=== PATIENT | male | born 1965 | race Caucasian/White ===

== ENCOUNTER 2019-08-28 17:33 | Inpatient (IN) | payer BC, MEDICAID, SELFPAY ==
--- NOTE | ~2019-08-28 | XR_ITS ---
EXAMINATION: XR chest 1V portable EXAM DATE: 08/28/2019 18:08 INDICATION: Chest pain radiating down left arm. Shortness of breath. TECHNIQUE: Portable AP frontal chest x-ray was obtained. Comparison is made to prior examination from 09/25/2015. FINDINGS: The lungs are clear. There are no pleural effusions. Cardiac silhouette is prominent but magnified on this AP technique. There is no pneumothorax suspected. The bones and soft tissues are unremarkable. IMPRESSION: No acute cardiopulmonary findings. Reviewed, dictated and finalized at location A.
--- NOTE | ~2019-08-28 | CT_ITS ---
EXAMINATION: CT chest abdomen pelvis w con EXAM DATE: 08/28/2019 19:13 INDICATION: Anterior chest and epigastric abdominal pain. Low blood pressure. TECHNIQUE: Spiral CT of the chest, abdomen and pelvis was performed following intravenous injection o f 100 mL Omnipaque 350. Axial, coronal and sagittal images were reviewed. Coronal maximum intensity pixel images of chest reviewed. The dose-length product (DLP) for this examination was 1362.71 mGy- cm. The exposure was tailored according to patient size (auto mA exposure control), and iterative re construction (ASIR) was used as additional dose reduction technique. There is no prior study for com sophiaon. FINDINGS: CHEST: There is disc shaped right upper lobe opacity measuring 9 x 6 x 4 mm, most likely postinfecti ous. 6 month follow-up low-dose chest CT is indicated. There is a 4 mm left lower lobe nodule on imag e 73. Dependent subsegmental atelectasis. There are no pleural or pericardial effusions. Tracheobr onchial tree is patent. There is no mediastinal, hilar or axillary lymphadenopathy. There is no p neumothorax. Heart normal in size. There is mild coronary arterial calcification, arterial sclero sis. ABDOMEN PELVIS: There is hepatic steatosis without suspicious focal lesion identified. Spleen, adrena l glands, pancreas are unremarkable. Gallbladder is unremarkable. No biliary obstruction. Portal a nd splenic veins are patent. Kidneys enhance symmetrically. There is no hydronephrosis. There is a 4 mm left mid calyceal stone. Homogeneous low-density right renal lesion measuring 1.5 cm, and other similar appearing lesion in the lower pole of this kidney measuring 2.0 cm is, likely hemorrhagic cys ts. The prostate is unremarkable. The bladder is unremarkable. There is no retroperitoneal or pelv ic lymphadenopathy. The appendix is normal. The stomach and small bowel are unremarkable. There is expected amount of c olonic stool. No free intraperitoneal gas. There are no osteoblastic or osteolytic lesions identi fied. IMPRESSION: 1. No acute chest, abdomen or pelvis findings. 2. 2. Pulmonary nodules likely postinfectious; 6 month follow-up low-dose chest CT about contrast. 3. Hepatic steatosis. 4. Left nephrolithiasis. Reviewed, dictated and finalized at location A. IMPRESSION: 1. No acute chest, abdomen or pelvis findings. 2. 2. Pulmonary nodules likely postinfectious; 6 month follow-up low-dose ches t CT about contrast. 3. Hepatic steatosis. 4. Left nephrolithiasis.
--- NOTE | 2019-08-28 17:39 | ECG_ITS ---
Measurements Intervals [place] Rate: 67 P: 51 FL: 153 QRS: 22 QRSD: 91 T: 64 QT: 416 QTc: 440 Interpretive Statements SINUS RHYTHM BORDERLINE ST-T WAVE ABNORMALITY- LATERAL LEADS BASELINE ARTIFACT- I, II, III, AVR, AVL, AVF BORDERLINE ECG Electronically Signed On 08-28-2019 20:42:52 CDT by Constantino Molina D.O.
[2019-08-28 17:43] VITALS: BP 97/71; PULSE 64; RESP 20; TEMP 36.6; O2SAT 96
[2019-08-28 17:46] VITALS: PULSE 63
--- NOTE | 2019-08-28 17:48 | ED.CHESTPAIN ---
HPI - Chest Pain General Chief Complaint: Chest Pain Stated Complaint: Chest pain Time Seen by Provider: 08/28/19 17:41 Source: patient Mode of arrival: ambulatory Limitations: no limitations History of Present Illness HPI narrative: A 54 y/o male presents to the ED with c/o CP. Pt states that this morning he woke up feeling abnormal and went to [employer]. He notes that when he came home from [employer], he vomited once. After he vomited he then started to have chest pressure and pain that radiated to his left arm. Pt adds that the CP is less severe in the ED. He reports nausea, left finger tingling, trouble walking, and SOB, but denies numbness. Pt is a nonsmoker. He has a PMHx of HTN and hyperlipidemia and takes Amlodipine and Lisinopril daily. Pt is unsure if he threw up his medication today. complaint: chest pain Onset (ago): hour(s) (This morning) Timing of current episode: still present (Better) Pain radiation: left arm Quality: other (Pressure) Associated symptoms: nausea, vomiting, dyspnea and other (Left finger tingling, trouble walking) Related Data Home Medications Medication Instructions Recorded Confirmed amlodipine 08/28/19 atorvastatin 08/28/19 lisinopril 08/28/19 Allergies Allergy/AdvReac Type Severity Reaction Status Date / Time No Known Allergies Allergy Verified 08/28/19 17:41 Review of Systems Review of Systems: Narrative: CONSTITUTIONAL: Denies fever, chills, or sweats. EYES: Denies visual changes, redness, or discharge. ENT: Denies rhinorrhea, congestion, sore throat, or otalgia. CARDIOVASCULAR: Denies palpitations or edema. Reports chest pain that radiates to left arm. RESPIRATORY: Denies cough. Reports dyspnea. GASTROINTESTINAL: Denies abdominal pain or diarrhea. Reports nausea and vomiting. GENITOURINARY: Denies dysuria or hematuria. SKIN: Denies rash or itching. MUSCULOSKELETAL: Denies back pain, joint pain, or myalgia. NEUROLOGIC: Denies headache, numbness, or weakness. Reports trouble walking and left finger tingling. All systems reviewed & are unremarkable except as noted in HPI and below PMFSH Past Medical History Medical History (Updated 08/28/19 @ 19:54 by Abimbola Evangelista MD) Anxiety Depression HTN (hypertension) Hyperlipidemia Surgical History Surgical History (Updated 08/28/19 @ 18:17 by Chelly Peterson) History of back surgery Social History Social History (Updated 08/28/19 @ 18:18 by Chelly Peterson) Smoking status: Former smoker Tobacco type: cigarettes Smoking end date: 08/21/15 Exam Narrative: Exam Narrative: GENERAL: Awake, alert, slightly diaphoretic, conversant HEAD: Normocephalic, atraumatic. EYES: PERRLA and EOMI. ENT: Nares clear, no rhinorrhea or epistaxis. Mucous membranes moist. NECK: Supple. CHEST: Clear to auscultation. No respiratory distress. No chest wall tenderness. HEART: Regular rate and rhythm. No murmur heard. Normal peripheral pulses. ABDOMEN: Soft, nontender, nondistended, normal active bowel sounds. EXTREMITIES: Normal range of motion. No edema. SKIN: Warm, diaphoretic, no rash. NEURO: No focal deficits. Alert and oriented X3. Course Course Emergency Course: Patient presented to the emergency department for evaluation of chest pain, nausea, vomiting. At the time of initial assessment, airway is intact, patient is hypertensive, no tachycardia, patient is afebrile. Given hypotension and recent history of chest pain, was concern for possible aortic etiology versus dehydration given the patient has been nauseous and vomiting. Patient initially denied any medical problems to me after being questions several times in the room. IV access obtained, patient was given a 30 mL/kg fluid bolus, blood cultures were obtained. He had appropriate response to fluids, with improvement of his blood pressure. Patient has laboratory results that are notable for leukocytosis, lactic acidosis, metabolic acidosis with decreased bicarb and anion gap of 18 co
[2019-08-28 17:55] LABS: Basophils Absolute Auto 0.1 K/mm3 (0.0-0.1); Basophils Percent Auto 0.3 % (0.2-1.2); Eosinophils Absolute Auto 0.1 K/mm3 (0-0.3); Eosinophils Percent Auto 0.4 % (0-4.4); Hematocrit 47.7 % (42.0-52.0); Hemoglobin 15.9 g/dL (14.0-18.0); Immature Granulocyte Absolute 0.06 K/mm3 (0.00-0.031); Immature Granulocyte Percent A 0.4 % (0-0.5); Lymphocytes Absolute Auto 4.89 K/mm3 (0.9-3.2); Lymphocytes Percent Auto 29.2 % (18.3-44.2); Mean Corpuscular HGB Conc 33.3 g/dl (32-36); Mean Corpuscular Hemoglobin 29.4 pg (26-34); Mean Corpuscular Volume 88.2 fl (80-100); Mean Platelet Volume 11.9 fl (7.4-10.4); Monocytes Absolute Auto 0.9 K/mm3 (0.1-0.6); Monocytes Percent Auto 5.5 % (2.6-8.5); Neutrophils Absolute Auto 10.8 K/mm3 (1.3-6.7); Neutrophils Percent Auto 64.2 % (45.5-73.1); Platelet Count Result 258 k/mm3 (150-375); Red Blood Count 5.41 M/mm3 (4.6-6.20); White Blood Count 16.8 K/mm3 (4.5-10.0)
--- NOTE | 2019-08-28 17:55 | ECG_ITS ---
Measurements Intervals [place] Rate: 58 P: 62 MO: 129 QRS: 27 QRSD: 95 T: 55 QT: 431 QTc: 424 Interpretive Statements SINUS BRADYCARDIA BORDERLINE ST-T WAVE ABNORMALITY- LATERAL LEADS BASELINE ARTIFACT- I, II, III, AVR, AVF BORDERLINE ECG Electronically Signed On 08-28-2019 20:43:34 CDT by Constantino Molina D.O.
[2019-08-28 18:00] LABS: Glucose Point of Care > 500 (65-105)
[2019-08-28 18:06] LABS: INR 0.9; Prothrombin Time 12.3 Seconds (11.1-14.7)
[2019-08-28 18:07] LABS: Partial Thromboplastin Time 23.7 SECONDS (22.3-36.8)
[2019-08-28] MEDS: SODIUM CHLORIDE 0.9% IV 2,800 ML/1,000 ML BAG 999 ML IV CONT (18:07)
[2019-08-28 18:08] LABS: Blood Urea Nitrogen 15 mg/dL (9-20); Calcium 10.4 mg/dL (8.4-10.2); Carbon Dioxide 18 mmol/L (22-30); Chloride 94 mmol/L (98-107); Estimated CRCL calculation 57 ml/min; Estimated Glomerular Filt Rate 49; Potassium 4.1 mmol/L (3.4-5.0); Sodium 130 mmol/L (137-145)
[2019-08-28] MEDS: ASPIRIN 81 MG CHEWABLE TABLET 324 MG PO (18:10)
[2019-08-28 18:16] LABS: Glucose 619 mg/dL (75-110)
[2019-08-28 18:18] LABS: Troponin I 0.013 ng/mL (0.000-0.034)
[2019-08-28 18:30] LABS: Alveolar/Arterial O2 Gradient 31.4 mmHg; Base Excess ABG -8.2 mEq/l (+/-2.0); Carboxyhemoglobin 3.2 % THb (0-2.0); Fractional Inspired Oxygen 21 %; HCO3 ABG 17.5 mEq/l (22.0-26.0); Methemoglobin ABG 0.2 %THb (0-1.5); Oxygen Saturation ABG 93.6 % (95.0-100.0); Oxyhemoglobin 90.7 % THb (90.0-100.0); PCO2 ABG 36.8 mmHg (35.0-45.0); PO2 ABG 74.3 mmHg (80.0-100.0); PO2 FiO2 Ratio Arterial Blood 3.54 %; Reduced Hemoglobin 5.9 %THb (0-5.0); Total Hemoglobin 14.1 g/dL (12.0-18.0); pH ABG 7.295 (7.350-7.450)
[2019-08-28 18:31] LABS: Device ROOM AIR; Site Drawn LEFT BRACHIAL
[2019-08-28 18:31] LABS: Alanine Aminotransferase 116 U/L (4-50); Albumin Level 4.4 g/dL (3.5-5.1); Alkaline Phosphatase 160 U/L (38-126); Aspartate Amino Transferase 75 U/L (17-59); Bilirubin,Total 0.8 mg/dL (0.2-1.3); CRP 1.6 mg/dL (<1.0); Lipase 108 U/L (23-300); Magnesium 2.2 mg/dL (1.6-2.3); Phosphorus 5.4 mg/dL (2.5-4.5)
[2019-08-28 18:39] LABS: Lactic Acid Reflex 4.2 mmol/L (0.7-2.1)
--- NOTE | 2019-08-28 20:00 | PM.IMHP ---
H&P: HPI History of Present Illness Chief complaint: Chest pressure. Narrative: Fred Lozada is a 54-year-old male with history of hypertension, hyperlipidemia, depression, and anxiety who presented to the emergency department earlier this evening via private vehicle from home for evaluation of chest pressure. He is only a fair historian, and several times throughout the interview he contradicted what he had previously said, and thus I am not certain how reliable the following history is. Reportedly, he stopped taking all of his medications (antihypertensive, antidepressant, benzodiazepine, and perhaps a statin) approximately 1 month ago due to what sounds like being lost to follow-up, and his physician would not renew them. Since that time he has just not been feeling well, with increasing fatigue and generalized weakness. This morning he got up to go to denominational and tells me he had to drag myself there due to feeling so poorly. He had 1 can of soda before going to denominational, and evidently he decided to take his medications (unclear if these were the ones that he had stopped taking last month, but he had previously told me he had run out of those) but he began vomiting thereafter. After denominational he went to his [id number]'s house, and while there he developed diffuse diaphoresis, midsternal chest pressure, and some discomfort in his left upper arm. He was worried about a possible heart attack and thus he came in for evaluation. He was borderline hypotensive in the emergency department and was found to have an acute kidney injury with profound metabolic acidosis as well as hyperglycemia, indicative of new onset diabetes. With further questioning, he has noted blurry vision and in fact saw the eye doctor not long ago and is awaiting prescription lenses. He also notes polydipsia and polyuria. He believes he may have lost some weight as his pants feel a little bit loose. He gets occasional GERD for which she will take Tums, but denies any current issues with that. He has not had recent cold or flu symptoms. He denies fever, chills, and sweats. No shortness of breath, cough, rhinorrhea, otalgia, or odynophagia. He denies diarrhea and dysuria. No paresthesias. Denies nonhealing wounds. Review of Systems Review of Systems: Narrative: 12 systems were reviewed with pertinent positives and negatives as per HPI. Except as documented, all other systems were reviewed and are negative. [facility] Past Medical History Medical History (Updated 08/28/19 @ 20:28 by Alison Painting PA-C) Anxiety Depression Hyperlipidemia Hypertension Surgical History Surgical History History of back surgery Family History Family History (Updated 08/28/19 @ 20:21 by Alison Painting PA-C) Father Malignant neoplasm of prostate Mother Acute myocardial infarction Diabetes mellitus Sibling Acute myocardial infarction Diabetes mellitus Social History Social History (Updated 08/28/19 @ 20:26 by Alison Painting PA-C) Social History: The patient is and lives with his in [place]. He designates his Farida is a surrogate decision-maker and he wishes to be a full code. 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 He is a former smoker, unable to qualify, and says he quit smoking several years back however his carboxyhemoglobin is elevated on ABG today. He drinks alcohol rarely, maybe several times a year. He denies illicit drug use. Smoking status: Former smoker Tobacco type: cigarettes Smoking end date: 08/21/15 Meds Home Medications and Allergies Home Medications Medication Instructions Recorded Confirmed Type amlodipine 08/28/19 History atorvastatin 08/28/19 History lisinopril 08/28/19 History Allergies Allergy/AdvReac Type Severity Reaction Status Date / Time No Known Allergies Allergy Verified 08/28/19 17:41 Vital Signs Vital Signs - 24
[2019-08-28] MEDS: INSULIN HUMAN REGULAR (*BKC) 100 UNITS/ML 9 UNITS IV PUSH (20:24)
[2019-08-28 21:12] VITALS: BP 141/100; PULSE 78; RESP 18; O2SAT 98
[2019-08-28 21:23] LABS: Hepatitis B Surface Antigen Negative (Negative)
[2019-08-28 21:24] LABS: Reflex Lactic Acid Yes or No Add Lactic
[2019-08-28 21:29] LABS: HAV RESULT Negative (Negative); Hepatitis B Core IgM Result Negative (Negative)
[2019-08-28 21:32] LABS: Glucose Point of Care 446 (65-105)
[2019-08-28 21:34] LABS: Add Urine Microscopic? YES; Appearance Urine Clear (Clear); Bilirubin Urine Negative (Negative); Blood Urine 1+ (Negative); Color Urine Straw (Yellow); Glucose Urine UA 3+ mg/dL (Negative); Ketones Urine Trace mg/dL (Negative); Leukocyte Esterase Ur Negative LEU/UL (Negative); Nitrate Urine Negative (Negative); Protein Urine 1+ mg/dL (Negative); Urobilinogen Urine Negative mg/dL (<2.0)
[2019-08-28 21:35] LABS: Specific Grav Ur 1.032 (1.001-1.035)
[2019-08-28] MEDS: INSULIN HUMAN REGULAR (*BKC) 100 UNITS in SODIUM CHLORIDE 0.9% IV 99 ML 11.2 UNITS IV CONT (21:35)
[2019-08-28 21:41] LABS: Hepatitis C Virus Antibody Negative (Negative)
[2019-08-28] MEDS: ONDANSETRON INJ 4 MG/2 ML VIAL IV PUSH (21:42)
[2019-08-28 21:45] VITALS: BP 148/80; PULSE 69; RESP 21; O2SAT 96
[2019-08-28 21:46] LABS: Amphetamine Screen Urine Negative (Negative); Barbiturate Screen Urine Negative (Negative); Benzodiazepines Screen Urine Negative (Negative); Cannabinoid Screen Urine Positive (Negative); Cocaine Screen Urine Negative (Negative); Methadone Screen Urine Negative (Negative); Opiate Screen Urine Negative (Negative); Phencyclidine Screen Urine Negative (Negative)
[2019-08-28 22:00] VITALS: PULSE 65; BMI 27.2
[2019-08-28] MEDS: SODIUM CHLORIDE 0.9% IV 1,000 ML 150 ML IV CONT (22:05)
[2019-08-28 22:21] LABS: Hemoglobin A1C > 14.0 % (<5.7)
[2019-08-28 22:24] LABS: Blood Urea Nitrogen 13 mg/dL (9-20); Calcium 8.7 mg/dL (8.4-10.2); Carbon Dioxide 21 mmol/L (22-30); Chloride 101 mmol/L (98-107); Estimated CRCL calculation 84 ml/min; Estimated Glomerular Filt Rate > 60; Glucose 451 mg/dL (75-110); Phosphorus 2.6 mg/dL (2.5-4.5); Sodium 130 mmol/L (137-145)
[2019-08-28 22:25] LABS: Lactic Acid 1.6 mmol/L (0.7-2.1)
--- NOTE | 2019-08-28 22:26 | PC.NURSE ---
This patient, Fred Lozada, was admitted to Intensive Care Unit-1 at 2140 on 08/28/2019. Patient/family oriented to hospital policies and general routines including ID bracelet, bed and alarms, visiting hours, pain management, procedures, bathroom and other care routines, personal items, smoking policy, room service/diet, and visiting hours. Valuables list has been completed. Information on how to activate the Rapid Response Team has been discussed. Patient/Family are encouraged to report perceived risks to care and to ask questions if they do not understand what they are told or what they should do.
[2019-08-28 22:36] LABS: Troponin I 0.012 ng/mL (0.000-0.034)
[2019-08-28 23:16] LABS: Glucose Point of Care 372 (65-105)
[2019-08-28 23:16] LABS: Glucose Point of Care 426 (65-105)
[2019-08-28] MEDS: ALPRAZOLAM 0.5 MG TABLET PO (23:57)
[2019-08-29] VITALS (14 sets, daily range): BP systolic 108–208; BP diastolic 58–131; PULSE 56–69; RESP 15–21; TEMP 36.5–36.7; O2SAT 94–100; BMI 27.2
--- NOTE | 2019-08-29 | ECHO_ITS ---
Patient Info Name: Fred Lozada Age: 54 years : 1965 Gender: Male Ht: 72 in Wt: 205 lbs BSA: 2.19 m2 HR: 60 bpm BP: 127 / 58 mmHg Heart Rhythm: Sinus Rhythm Technical Quality: Good Exam Date: 08/29/2019 7:04 AM Exam Location: [facility] Patient Status: Inpatient Admit Date: 08/28/2019 Staff Ordering Physician: Alison Painting PA-C Fruit Checker: Jose Brandon RDCS, RT Attending Provider: Ivana Trinidad DO Referring Physician: Mert MONTES; Exam Type: CA echo doppler color flow Study Info Indications I10 - Essential (primary) hypertension R07.89 - Other chest pain Complete two-dimensional, color flow and Doppler transthoracic echocardiogram is performed. Summary 1. Left ventricular chamber dimension is normal. 2. Left ventricular systolic function is normal, estimated at 65-70%. 3. No ischemic wall motion abnormalities are identified. 4. No significant valvular abnormalities. Left Ventricle Left ventricular chamber dimension is normal. Left ventricular systolic function is normal, estimated at 65-70%. The left ventricular diastolic function is normal. No ischemic wall motion abnormalities are identified. Right Ventricle Right ventricular chamber dimension is normal. Left Atria Left atrial chamber dimension is normal. Right Atria Right atrial chamber dimension is normal. Aortic Valve The aortic valve is trileaflet. Pulmonic Valve The pulmonic valve is not well visualized. Mitral Valve The mitral valve has normal leaflets. There is trace mitral valve regurgitation. Tricuspid Valve The tricuspid valve leaflets are normal. Pericardium/Pleural The pericardium appears normal. Aorta The aortic root size at the sinus of Valsalva is normal. Left Ventricular Outflow Tract Name Value Normal LVOT 2D LVOT Diameter 2.0 cm LVOT Doppler LVOT Peak Gradient 4 mmHg LVOT Mean Gradient 2 mmHg LVOT VTI 23 cm LVOT VTI/AV VTI Ratio 0.9 LVOT Stroke Volume 73 ml LVOT CO 4.3 l/min LVOT CI 2.0 l/min/m2 Pulmonic Valve Name Value Normal PV Doppler PV Peak Gradient 3 mmHg Mitral Valve Name Value Normal MV Doppler MV Decel Dyer 285 cm/s2 MV PHT 64 ms MV Area (PHT) 3.4 cm2 4.0-5.0 MV Diastolic Function
[2019-08-29 00:43] LABS: Glucose Point of Care 327 (65-105)
[2019-08-29 01:07] LABS: Glucose Point of Care 264 (65-105)
[2019-08-29 01:22] LABS: Add Urine Microscopic? YES; Appearance Urine Clear (Clear); Bilirubin Urine Negative (Negative); Blood Urine Negative (Negative); Color Urine Colorless (Yellow); Glucose Urine UA 3+ mg/dL (Negative); Ketones Urine Negative (Negative); Leukocyte Esterase Ur Negative LEU/UL (NEGATIVE); Nitrate Urine Negative (Negative); Protein Urine 1+ mg/dL (Negative); RBC Urine 0-2 /hpf (0-2); Urobilinogen Urine Negative mg/dL (<2.0); WBC Urine 0-3 /hpf (0-3)
[2019-08-29 01:23] LABS: Specific Grav Ur 1.038 (1.001-1.035)
[2019-08-29 01:59] LABS: Glucose Point of Care 229 (65-105)
[2019-08-29] MEDS: KCL 20 MEQ/D5/0.45% SOD CHL 1,000 ML 150 ML IV CONT (02:05)
[2019-08-29 02:34] LABS: Blood Urea Nitrogen 12 mg/dL (9-20); Calcium 8.7 mg/dL (8.4-10.2); Carbon Dioxide 23 mmol/L (22-30); Chloride 105 mmol/L (98-107); Estimated CRCL calculation 92 ml/min; Estimated Glomerular Filt Rate > 60; Glucose 210 mg/dL (75-110); Potassium 3.3 mmol/L (3.4-5.0); Sodium 134 mmol/L (137-145)
[2019-08-29 02:47] LABS: Troponin I 0.014 ng/mL (0.000-0.034)
[2019-08-29 03:02] LABS: Glucose Point of Care 154 (65-105)
[2019-08-29 04:07] LABS: Glucose Point of Care 131 (65-105)
[2019-08-29 05:15] LABS: Glucose Point of Care 136 (65-105)
[2019-08-29] MEDS: INSULIN GLARGINE (*BKC) 100 UNITS/ML 20 UNITS SUB-Q ×2 (05:35→20:07)
[2019-08-29 06:16] LABS: Glucose Point of Care 193 (65-105)
--- NOTE | 2019-08-29 07:00 | WPDCNINT ---
Assessment and Plan Assessment and plan (1) DKA (diabetic ketoacidoses): Qualifiers: Diabetes mellitus complication detail: without coma Diabetes mellitus type: other specified (including ADRYAN) Qualified Code(s): E13.10 - Other specified diabetes mellitus with ketoacidosis without coma Code(s): E11.10 - Type 2 diabetes mellitus with ketoacidosis without coma Status: Acute Assessment and Plan: New diagnosis of diabetes presenting in DKA with hyperglycemia, metabolic acidosis, and the presence of ketones. He will be started on insulin infusion per DKA protocol. anion gap has closed and patient will be transitioned to subcutaneous insulin. Subcutaneous Lantus given and will start on subcutaneous short-acting insulin. Diabetic education. IV fluids (2) Chest pain: Qualifiers: Chest pain type: other chest pain Qualified Code(s): R07.89 - Other chest pain Code(s): R07.9 - Chest pain, unspecified Status: Acute Assessment and Plan: patient has risk factors for coronary artery disease and chest pain suggest angina. EKG abnormal but no ST elevation. Serial troponins negative echo is being done consult cardiology continue aspirin statin beta-maynor held due to low blood pressure (3) Acute dehydration: Code(s): E86.0 - Dehydration Status: Acute Assessment and Plan: improved with aggressive IV fluids (4) Hypertension: Code(s): I10 - Essential (primary) hypertension Status: Acute Assessment and Plan: Treat as needed (5) Hypotension: Code(s): I95.9 - Hypotension, unspecified Status: Acute Assessment and Plan: likely secondary to dehydration and blood pressure medications. Improved with rehydration. Monitor (6) Sepsis: Code(s): A41.9 - Sepsis, unspecified organism Status: Acute Assessment and Plan: although history and workup on presentation did not suggest any infection, Patient did meet criteria for septic shock with hypotension, leukocytosis, and lactic acid level of 4.2. lactic acid has normalized after rehydration. Patient was started on empiric antibiotics and cultures were sent. Will continue antibiotics for 48 hours until cultures come back negative and then discontinue if not indicated. (7) Hypokalemia: Code(s): E87.6 - Hypokalemia Status: Acute Assessment and Plan: replace potassium Additional Plan DVT prophylaxis - Lovenox Stress ulcer prophylaxis - not indicated Nutrition - advance diet today Code Status - Full Code Ore Feeder Consult Note Consult date: 08/29/19 Time Seen: 07:00 HPI: Fred Lozada is a 54 year old male with OMH of hypertension, hyperlipidemia, depression, and anxiety who presented to the emergency department yesterday from home for evaluation of chest pressure. Patient had episode of chest pain yesterday during the day which lasted few minutes. Pain was in the middle of the chest, quality pressure, severity 3 to 5/10, radiated to left arm, associated with feeling weak and sick, no palpitation and resolve spontaneously. Patient has not been feeling well for last 2 weeks otherwise. Patient thought he may be having a heart attack hence came to ER. Over last 2 weeks patient has been having polyuria, polydipsia, increased appetite and generalized fatigue and weakness. he has not taken any medication for depression for last 6 months. He did take his blood pressure medications yesterday morning. He denied any fever, cough, shortness of breath, chills or rigors, burning sensation with urination. In ED patient was found to be hyperglycemic, dehydrated and hypotensive. Patient was given IV fluid bolus, started on IV infusion of insulin and empiric antibiotics Review of Systems Constitutional: Constitutional: Denies body ache(s), Denies chills, Reports fatigue, Denies fever(s), Reports increased appe
[2019-08-29 07:01] LABS: Basophils Percent Auto 0.3 % (0.2-1.2); Eosinophils Absolute Auto 0.1 K/mm3 (0-0.3); Eosinophils Percent Auto 0.9 % (0-4.4); Hematocrit 38.5 % (42.0-52.0); Hemoglobin 12.7 g/dL (14.0-18.0); Immature Granulocyte Absolute 0.04 K/mm3 (0.00-0.031); Immature Granulocyte Percent A 0.3 % (0-0.5); Lymphocytes Absolute Auto 3.39 K/mm3 (0.9-3.2); Lymphocytes Percent Auto 27.3 % (18.3-44.2); Mean Corpuscular Hemoglobin 29.1 pg (26-34); Mean Corpuscular Volume 88.1 fl (80-100); Mean Platelet Volume 11.6 fl (7.4-10.4); Monocytes Absolute Auto 0.7 K/mm3 (0.1-0.6); Monocytes Percent Auto 5.2 % (2.6-8.5); Neutrophils Absolute Auto 8.2 K/mm3 (1.3-6.7); Platelet Count Result 173 k/mm3 (150-375); Red Blood Count 4.37 M/mm3 (4.6-6.20); Red Cell Distribution Width 12.9 % (11.5-14.5); White Blood Count 12.4 K/mm3 (4.5-10.0)
[2019-08-29 07:16] LABS: Blood Urea Nitrogen 10 mg/dL (9-20); Calcium 8.2 mg/dL (8.4-10.2); Carbon Dioxide 23 mmol/L (22-30); Chloride 105 mmol/L (98-107); Cholesterol 158 mg/dL (0-200); Estimated CRCL calculation 92 ml/min; Estimated Glomerular Filt Rate > 60; Glucose 198 mg/dL (75-110); HDL Direct 27 mg/dL; Phosphorus 2.6 mg/dL (2.5-4.5); Potassium 3.5 mmol/L (3.4-5.0); Sodium 134 mmol/L (137-145); Triglycerides 211 mg/dL (<150)
[2019-08-29 07:26] LABS: LDL Cholesterol Direct 99 mg/dL
[2019-08-29] MEDS: SODIUM CHLORIDE 0.9% IV 1,000 ML 75 ML IV CONT (08:01)
[2019-08-29] MEDS: VENLAFAXINE HCL XR 75 MG CAP.ER.24H 150 MG PO (08:25)
[2019-08-29] MEDS: ATORVASTATIN 20 MG TABLET PO (08:25)
[2019-08-29] MEDS: POTASSIUM CHLORIDE 20 MEQ TABLET 40 MEQ PO (08:27)
[2019-08-29] MEDS: ENOXAPARIN 40 MG/0.4 ML SYRINGE SUB-Q (09:53)
[2019-08-29 10:39] LABS: Blood Urea Nitrogen 9 mg/dL (9-20); Calcium 8.3 mg/dL (8.4-10.2); Carbon Dioxide 20 mmol/L (22-30); Chloride 104 mmol/L (98-107); Estimated CRCL calculation 103 ml/min; Estimated Glomerular Filt Rate > 60; Glucose 308 mg/dL (75-110); Potassium 4.1 mmol/L (3.4-5.0); Sodium 133 mmol/L (137-145)
[2019-08-29 12:31] LABS: Glucose Point of Care 336 (65-105)
[2019-08-29] MEDS: INSULIN ASPART (*BKC) 100 UNITS/ML SUB-Q ×2 (12:35→18:15)
--- NOTE | 2019-08-29 13:20 | PM.CNCAR ---
Assessment and Plan Additional Plan 54-year-old white male with episode of chest pain yesterday that appears to have been self-limited. He was found to be significantly ill with new onset of diabetes in the state of ketoacidosis upon arrival in the hospital. His glycemic stated better but he still having difficulty with nausea and vomiting at this time. He is not having any ongoing cardiac ischemic chest pain. He is nauseated and diaphoretic and vomiting gastric contents. His electrocardiograms are within normal range in his troponin levels are negative x3 sets indicating thus far no objective evidence of an acute coronary syndrome. Empiric treatment with aspirin as well as beta-blockers is appropriate at this time and given his risk factors ischemic testing should be done when he is medically more stable to have it done. There is no urgency to cover bring this gentleman for a cardiac catheterization procedure as I do not see any evidence of acute coronary syndrome and would be a suboptimal choice at this point given his evidence of acute kidney insufficiency upon arrival yesterday. When he is more stable I will determine the most appropriate means for ischemic testing but that does not have to be done urgently in my opinion Jovon Kevin MD [facility] History of Present Illness History of Present Illness Consult date/time: Date of service: 08/29/19 13:20 Consult reason: chest pain Reason For Visit: Chest pressure. Narrative: This is a 54-year-old man who I have not seen previously admitted to the hospital yesterday after being seen in the emergency room. He came to the emergency department complaining of episodes of chest pain which began yesterday morning. He was not feeling well though for of fiber 6 days before coming into the hospital stating that he just felt off kilter . He had a hard time be more specific about his other complaints. He was having some difficulty with nausea vomiting during the same period of time. In the emergency department his cardiac evaluation in terms of ECG and biomarkers were negative but he was found to be markedly hyperglycemic with evidence of ketoacidosis. The patient had never been diabetic in the past this is a completely new diagnosis for him according to the record. He does have a history of hypertension and dyslipidemia which are being managed by his PCP. He denies any prior history of cardiac problems. In his usual state of health he does not exercise regularly but he does lead active lifestyle and does not notice symptoms of exertional chest pain pressure or heaviness he has not been experiencing symptoms of palpitations he has never had a syncopal episode he has not been rate experiencing any orthopnea PND or lower extremity edema. The patient's ED electrocardiograms that her in the chart are negative. He has 3 sets of troponin levels that are also normal. He has been give receiving aspirin he has been markedly hypertensive today with has orders for IV beta-blockers and I Edin inhibitors. He is receiving insulin in fluid for his new onset of diabetes diabetes with ketoacidosis. He is no longer having any chest pain. Before came into the room to see him he has been feeling unwell again with symptoms of nausea diaphoresis and he has a vomiting gastric contents while I come into the room to see him. I do not see any evidence of coffee-grounds or hematemesis. The patient's lab data did different demonstrates some evidence of what appears to be acute kidney insufficiency probably for in the setting of DKA and volume depletion that seems to be better today. Review of Systems Constitutional: Constitutional: Reports fatigue Eyes: Eyes: Reports no additional eye complaints ENT: Reports system reviewed and no additional complaints, except as documented Cardiovascular: Cardiovascular: Reports as per HPI Respiratory: Respiratory: Reports no additional respiratory complaints Gastrointestinal: Gastrointestinal:
[2019-08-29] MEDS: MORPHINE SULFATE 4 MG/ML INJ IV PUSH (13:24)
[2019-08-29] MEDS: METOPROLOL TARTRATE INJ 5 MG/5 ML VIAL IV PUSH (13:25)
[2019-08-29] MEDS: AMLODIPINE BESYLATE 5 MG TABLET PO (15:27)
[2019-08-29] MEDS: lisinopriL 20 MG TABLET 40 MG PO (15:27)
[2019-08-29 16:11] LABS: Blood Urea Nitrogen 9 mg/dL (9-20); Calcium 8.5 mg/dL (8.4-10.2); Carbon Dioxide 21 mmol/L (22-30); Chloride 105 mmol/L (98-107); Estimated CRCL calculation 117 ml/min; Estimated Glomerular Filt Rate > 60; Glucose 281 mg/dL (75-110); Potassium 4.8 mmol/L (3.4-5.0); Sodium 133 mmol/L (137-145)
[2019-08-29 18:12] LABS: Glucose Point of Care 258 (65-105)
[2019-08-29 21:15] LABS: Blood Urea Nitrogen 9 mg/dL (9-20); Calcium 8.2 mg/dL (8.4-10.2); Carbon Dioxide 23 mmol/L (22-30); Chloride 102 mmol/L (98-107); Estimated CRCL calculation 92 ml/min; Estimated Glomerular Filt Rate > 60; Glucose 300 mg/dL (75-110); Potassium 3.9 mmol/L (3.4-5.0); Sodium 132 mmol/L (137-145)
[2019-08-29] MEDS: MELATONIN 5 MG TABLET PO (21:36)
[2019-08-30] VITALS (9 sets, daily range): BP systolic 158–167; BP diastolic 95–105; PULSE 53–68; RESP 16–20; TEMP 36.7–36.9; O2SAT 95–98
[2019-08-30 04:56] LABS: Hematocrit 41.5 % (42.0-52.0); Hemoglobin 13.9 g/dL (14.0-18.0); Mean Corpuscular HGB Conc 33.5 g/dl (32-36); Mean Corpuscular Hemoglobin 29.6 pg (26-34); Mean Corpuscular Volume 88.3 fl (80-100); Platelet Count Result 181 k/mm3 (150-375); Red Cell Distribution Width 12.9 % (11.5-14.5); White Blood Count 11.3 K/mm3 (4.5-10.0)
[2019-08-30 05:13] LABS: Blood Urea Nitrogen 7 mg/dL (9-20); Calcium 8.7 mg/dL (8.4-10.2); Carbon Dioxide 24 mmol/L (22-30); Chloride 105 mmol/L (98-107); Estimated CRCL calculation 117 ml/min; Estimated Glomerular Filt Rate > 60; Glucose 236 mg/dL (75-110); Magnesium 1.9 mg/dL (1.6-2.3); Potassium 3.8 mmol/L (3.4-5.0); Sodium 135 mmol/L (137-145)
[2019-08-30 08:07] LABS: Glucose Point of Care 246 (65-105)
--- NOTE | 2019-08-30 09:00 | WPDINTPN ---
Progress Note: A&P Assessment and Plan (1) DKA (diabetic ketoacidoses): Qualifiers: Diabetes mellitus complication detail: without coma Diabetes mellitus type: other specified (including ADRYAN) Qualified Code(s): E13.10 - Other specified diabetes mellitus with ketoacidosis without coma Code(s): E11.10 - Type 2 diabetes mellitus with ketoacidosis without coma Status: Acute Assessment and Plan: New diagnosis of diabetes presenting in DKA with hyperglycemia, metabolic acidosis, and the presence of ketones. He was started on insulin infusion per DKA protocol. benign gap closed and patient was transitioned to subcutaneous insulin discontinue IV fluids. Continue insulin. I will increase Lantus dose and also give 1 time additional 10 units of Lantus at this time. (2) Chest pain: Qualifiers: Chest pain type: other chest pain Qualified Code(s): R07.89 - Other chest pain Code(s): R07.9 - Chest pain, unspecified Status: Acute Assessment and Plan: patient has risk factors for coronary artery disease and had a episode of chest pain at home EKG abnormal but no ST elevation. Serial troponins were negative echo Summary 1. Left ventricular chamber dimension is normal. 2. Left ventricular systolic function is normal, estimated at 65-70%. 3. No ischemic wall motion abnormalities are identified. 4. No significant valvular abnormalities. patient was seen by cardiology yesterday continue aspirin, beta-maynor, statin further diagnostic testing as per cardiology (3) Acute dehydration: Code(s): E86.0 - Dehydration Status: Acute Assessment and Plan: resolved with aggressive IV fluids. Continue IV fluid (4) Hypertension: Code(s): I10 - Essential (primary) hypertension Status: Acute Assessment and Plan: patient resumed on his home lisinopril and amlodipine add low-dose beta-maynor (5) Hypotension: Code(s): I95.9 - Hypotension, unspecified Status: Acute Assessment and Plan: likely secondary to dehydration and blood pressure medications. Improved with rehydration. Monitor (6) Sepsis: Code(s): A41.9 - Sepsis, unspecified organism Status: Acute Assessment and Plan: although history and workup on presentation did not suggest any infection, Patient did meet criteria for sepsis on presentation with hypotension, leukocytosis, and lactic acid level of 4.2. lactic acid has normalized after rehydration. these findings were likely secondary to DKA and dehydration. Empiric workup did not showed any suggestion of infection and the cultures have been negative till now. Patient's white count has normalized and patient has remained afebrile throughout his hospital stay. I would discontinue antibiotics at this time and monitor patient. The antibiotics seemed be resumed if there is any objective evidence of infection, patient developed new symptoms or cultures come back positive. (7) Hypokalemia: Code(s): E87.6 - Hypokalemia Status: Acute Assessment and Plan: Normalize after replacement Additional Plan DVT prophylaxis - continue Lovenox Stress ulcer prophylaxis - not indicated Nutrition - diabetic diet Code Status - Patient is Full Code Subjective Date/time seen: 08/30/19 09:00 . Patient seen for the hospitalist group no new complaints today. Patient denies any nausea vomiting, chest pain, shortness of breath, headache or fever. Patient feels good and had his dinner last night. He was seen by Cardiology yesterday. Review of Systems Review of Systems: All systems reviewed & are unremarkable except as noted in HPI and below Exam Narrative: Exam Narrative: General: Pt is alert awake and in NAD Lungs/Chest: Trachea central Clear BS B/L, No crackles or wheezing. Cardiac: RRR. Normal S1 S2. No murmurs Circulation: Pedal pulses are intact and symmetr
[2019-08-30 09:03] LABS: Vancomycin Trough 15.3 ug/mL (10.0-20.0)
[2019-08-30] MEDS: lisinopriL 20 MG TABLET 40 MG PO (09:16)
[2019-08-30] MEDS: VENLAFAXINE HCL XR 75 MG CAP.ER.24H 150 MG PO (09:16)
[2019-08-30] MEDS: AMLODIPINE BESYLATE 5 MG TABLET PO (09:17)
[2019-08-30] MEDS: ATORVASTATIN 20 MG TABLET PO (09:17)
[2019-08-30] MEDS: SODIUM CHLORIDE 0.9% IV 1,000 ML 75 ML IV CONT ×2 (09:17)
[2019-08-30] MEDS: INSULIN ASPART (*BKC) 100 UNITS/ML SUB-Q ×3 (09:21→17:36)
[2019-08-30] MEDS: INSULIN GLARGINE (*BKC) 100 UNITS/ML 20 UNITS SUB-Q (09:22)
[2019-08-30] MEDS: ENOXAPARIN 40 MG/0.4 ML SYRINGE SUB-Q (09:31)
[2019-08-30] MEDS: INSULIN GLARGINE (*BKC) 100 UNITS/ML 10 UNITS SUB-Q (10:27)
[2019-08-30 11:59] LABS: Glucose Point of Care 274 (65-105)
[2019-08-30] MEDS: carvediloL 3.125 MG TABLET PO ×2 (12:26→21:12)
[2019-08-30] MEDS: ACETAMINOPHEN 325 MG TABLET 650 MG PO (13:33)
--- NOTE | 2019-08-30 13:43 | PCDIET ---
Nutrition Follow-Up Complete: Nutrition Diagnosis: Altered nutrition related lab values related to diabetes mellitus as evidenced by HgbA1C of >14%. Nutrition Goal: Patient to consume 50% of meals or more on advanced diet. Goal met. Patient now consuming 100% of meals on diabetic diet with Glucerna BID. Recommend stopping Glucerna due to improved intake. Diabetic diet is appropriate. Patient denies questions re: diet at this time but indicates feeling overwhelmed with DM diagnosis. Last recorded weight is 91.1 kg which is stable. Bowel Motility: Last documented bowel movement on 08/28/19. Labs Reviewed: Glu (274), Na (135) Meds Noted: Novolog, Lantus, NS at 75mL/hr Additional Notes: No documented skin breakdown. Nutrition Monitoring and Evaluation: Follow up every 5 days.
[2019-08-30 15:41] LABS: Glucose Point of Care 224 (65-105)
--- NOTE | 2019-08-30 16:35 | PM.PNCARD ---
Progress Note: A&P Assessment and Plan (1) Chest pain: Qualifiers: Chest pain type: other chest pain Qualified Code(s): R07.89 - Other chest pain Code(s): R07.9 - Chest pain, unspecified Status: Acute Assessment and Plan: Chest pain prior to admission that was self-limited. Troponin negative x3. No ischemic changes on EKG. Aspirin, beta-maynor and statin have been started empirically. Ischemic workup will be done when he is more medically stable. Will confer with Dr. Kevin on the timing of abis ischemic workup. Most likely this will be done as an outpatient. Additional Plan Plan discussed with Dr. Osborn [id number] 08/30/2019 Subjective Date/time seen: 08/30/19 16:35 Interval history: Follow-up for: Chest pain, diabetes with ketoacidosis, nausea and vomiting Date of service: 08/30/2019 Subjective: Not feeling very well this afternoon. Hot and sweaty. Lightheaded earlier. Denied chest discomfort or shortness of breath. Review of Systems Constitutional: Constitutional: Reports fatigue and Reports headache(s) Eyes: Eyes: Reports no additional eye complaints ENT: Reports headache(s) Cardiovascular: Cardiovascular: Denies chest pain, Denies pedal edema, Denies palpitations, Denies dyspnea on exertion and Denies orthopnea Respiratory: Respiratory: Denies dyspnea on exertion Gastrointestinal: Gastrointestinal: Denies nausea and Denies vomiting Genitourinary: Genitourinary: Denies hematuria Integumentary/Breasts: Skin/Breast: Denies erythema and Denies rash Neurologic: Reports headache(s) Psychiatric: Psychiatric: Denies anxiety Endocrine: Endocrine: Reports fatigue Hematologic/Lymphatic: Hematologic/Lymphatic: Denies easy bleeding and Denies easy bruising Allergic/Immunologic: Allergic/Immunologic: Denies urticaria, Denies itchy eyes and Denies lip swelling Exam Const: General: cooperative and comfortable Nutritional Appearance: average body habitus Orientation/consciousness: patient oriented x3 HENMT: Mouth: Yes dry mucous membranes Eyes: Sclera: sclerae normal Pupils: Equal, round and reactive pupils present Neck: Neck: supple and no JVD Resp: Effort & Inspection: normal respiratory effort and able to speak in complete sentences Auscultation: clear to auscultation bilaterally Cardio: Rate: regular rate Rhythm: regular rhythm Peripheral pulses: Peripheral pulses 2+ throughout GI: Auscultation: normal bowel sounds Skin: General skin exam: normal color Neuro: General: patient oriented x3 Cranial nerves: Yes Equal, round and reactive pupils present Cognition (Neuro): normal cognition Speech: normal speech Extrem: General: normal to inspection and no edema Objective Data Vital Signs Vital Signs: Vital Signs - 24 hr 08/29/19 19:58 08/29/19 20:00 08/30/19 00:00 Temperature 36.7 C Pulse Rate 59 L 64 Respiratory Rate 16 Blood Pressure 165/97 H Pulse Oximetry 99 95 08/30/19 08:00 08/30/19 12:00 08/30/19 15:30 Temperature 36.8 C 36.9 C Pulse Rate 62 65 67 Respiratory Rate 16 20 Blood Pressure 164/105 H 158/95 H Pulse Oximetry 98 08/30/19 16:00 Temperature 36.8 C Pulse Rate 68 Respiratory Rate 16 Blood Pressure 167/104 H Pulse Oximetry 97 Intake/Output Intake/Output: Intake & Output 08/27/19 08/28/19 08/29/19 08/30/19 22:59 23:59 23:59 23:59 Intake Total 4256 2030 Output Total 2755 2000 Balance 1501 30 Meds/Results Medications: Active Medications Generic Name Dose Route Start Last Admin Trade Name Freq PRN Reason Stop Dose Admin Acetaminophen 650 mg 08/30/19 13:24 08/30/19 13:33 Tylenol Tablet PO 650 mg Q6H PRN Administration Mild Pain (1-3) Amlodipine Besylate 5 mg 08/29/19 13:10 08/30/19 09:17 Norvasc PO 5 mg QAM JOEY Administration Atorvastatin Calcium 20 mg 08/29/19 09:00 08/30/19 09:17 Lipitor PO 20 mg QAM JOEY Administration Carvedilol 3.125 mg
[2019-08-30 17:08] LABS: Glucose Point of Care 249 (65-105)
--- NOTE | 2019-08-30 17:27 | PC.NURSE ---
This patient, Fred Lozada, was transferred to [facility] on 08/30/19 at 1710. Personal belongings sent with patient. Report given to Doug VAZQUEZ. Appropriate documentation sent with patient.
--- NOTE | 2019-08-30 18:12 | PC.NURSE ---
This patient, Fred Lozada, was received from [facility] on 08/30/19 at 1725. Personal belongings list checked and signed. Patient/family oriented to unit policies and routines
[2019-08-30] MEDS: MELATONIN 5 MG TABLET PO (21:12)
[2019-08-30] MEDS: INSULIN GLARGINE (*BKC) 100 UNITS/ML 25 UNITS SUB-Q (21:13)
[2019-08-30] MEDS: MORPHINE SULFATE 4 MG/ML INJ IV PUSH (21:15)
[2019-08-30 21:35] LABS: Glucose Point of Care 246 (65-105)
[2019-08-31] VITALS (8 sets, daily range): BP systolic 135–149; BP diastolic 52–91; PULSE 53–65; RESP 16–20; TEMP 36–36.9; O2SAT 94–99
[2019-08-31 05:36] LABS: Hematocrit 42.6 % (42.0-52.0); Hemoglobin 14.3 g/dL (14.0-18.0); Mean Corpuscular HGB Conc 33.6 g/dl (32-36); Mean Corpuscular Hemoglobin 29.4 pg (26-34); Mean Corpuscular Volume 87.7 fl (80-100); Mean Platelet Volume 11.5 fl (7.4-10.4); Platelet Count Result 186 k/mm3 (150-375); Red Blood Count 4.86 M/mm3 (4.6-6.20); Red Cell Distribution Width 12.8 % (11.5-14.5); White Blood Count 10.1 K/mm3 (4.5-10.0)
[2019-08-31 06:12] LABS: Blood Urea Nitrogen 9 mg/dL (9-20); Carbon Dioxide 25 mmol/L (22-30); Chloride 104 mmol/L (98-107); Estimated CRCL calculation 117 ml/min; Estimated Glomerular Filt Rate > 60; Glucose 173 mg/dL (75-110); Potassium 3.3 mmol/L (3.4-5.0); Sodium 136 mmol/L (137-145)
[2019-08-31] MEDS: ENOXAPARIN 40 MG/0.4 ML SYRINGE SUB-Q (08:32)
[2019-08-31] MEDS: lisinopriL 20 MG TABLET 40 MG PO (08:33)
[2019-08-31] MEDS: carvediloL 3.125 MG TABLET PO ×2 (08:33→21:28)
[2019-08-31] MEDS: AMLODIPINE BESYLATE 5 MG TABLET PO (08:34)
[2019-08-31] MEDS: VENLAFAXINE HCL XR 75 MG CAP.ER.24H 150 MG PO (08:34)
[2019-08-31] MEDS: ATORVASTATIN 20 MG TABLET PO (08:34)
[2019-08-31] MEDS: INSULIN GLARGINE (*BKC) 100 UNITS/ML 25 UNITS SUB-Q ×2 (08:38→21:29)
[2019-08-31 09:07] LABS: Glucose Point of Care 158 (65-105)
[2019-08-31] MEDS: ACETAMINOPHEN 325 MG TABLET 650 MG PO (10:23)
--- NOTE | 2019-08-31 12:09 | PM.PNCARD ---
Progress Note: A&P Additional Plan 54-year-old gentleman with history of elevated troponin level as described above this occurred in the setting of diabetic ketoacidosis. Because of his risk factors screening for coronary artery disease should take place. We will schedule ischemic workup as an outpatient. From the cardiac perspective he is stable for discharge in my opinion I will not plan on rounding on him during the rest of this hospitalization we will have follow-up appointments in my office and discuss ischemic workup following discharge. Jovon Kevin MD [facility] Subjective Date/time seen: Date of service: 08/31/19 12:09 Interval history: Follow-up visit for 54-year-old gentleman seen because of elevated troponin which occurred in the setting of diabetic ketoacidosis. Diabetes is a new diagnosis for this gentleman in he has no prior known history of heart disease. Patient feels much better today nausea and vomiting seem to have subsided. Notes from primary Service do not really indicate how long he will be in the hospital Exam Const: General: comfortable and no acute distress HENMT: Mouth: Yes moist mucous membranes Eyes: Sclera: sclerae normal Pupils: Equal, round and reactive pupils present Neck: Neck: supple and no JVD Thyroid: thyroid normal Resp: Effort & Inspection: normal respiratory effort Auscultation: clear to auscultation bilaterally Cardio: Rate: regular rate Rhythm: regular rhythm Other: No discernible gallop murmur or rub GI: Auscultation: normal bowel sounds Skin: General skin exam: normal color Neuro: Cognition (Neuro): normal cognition Objective Data Vital Signs Vital Signs: Vital Signs - 24 hr 08/30/19 15:30 08/30/19 16:00 08/30/19 17:35 Temperature 36.9 C 36.8 C Pulse Rate 67 68 53 L Respiratory Rate 20 16 Blood Pressure 158/95 H 167/104 H Pulse Oximetry 97 08/30/19 20:00 08/30/19 21:12 08/30/19 22:00 Temperature 36.8 C Pulse Rate 64 58 L 64 Respiratory Rate 16 Blood Pressure 167/95 H Pulse Oximetry 95 08/31/19 00:00 08/31/19 04:00 08/31/19 06:00 Temperature 36.0 C L Pulse Rate 59 L 53 L 59 L Respiratory Rate 16 Blood Pressure 149/85 H Pulse Oximetry 99 08/31/19 08:00 08/31/19 08:33 Temperature Pulse Rate 54 L 56 L Respiratory Rate Blood Pressure Pulse Oximetry Intake/Output Intake/Output: Intake & Output 08/28/19 08/29/19 08/30/19 08/31/19 23:59 23:59 23:59 23:59 Intake Total 4256 2390 400 Output Total 2755 3900 Balance 1501 -1510 400 Meds/Results Medications: Active Medications Generic Name Dose Route Start Last Admin Trade Name Freq PRN Reason Stop Dose Admin Acetaminophen 650 mg 08/30/19 13:24 08/31/19 10:23 Tylenol Tablet PO 650 mg Q6H PRN Administration Mild Pain (1-3) Amlodipine Besylate 5 mg 08/29/19 13:10 08/31/19 08:34 Norvasc PO 5 mg QAM JOEY Administration Atorvastatin Calcium 20 mg 08/29/19 09:00 08/31/19 08:34 Lipitor PO 20 mg QAM JOEY Administration Carvedilol 3.125 mg 08/30/19 09:00 08/31/19 08:33 Coreg PO 3.125 mg Q12HR JOEY Administration Dextrose 12.5 gm 08/29/19 18:21 Dextrose 50% Syringe IV PUSH PRN PRN Hypoglycemia Protocol Enoxaparin Sodium 40 mg 08/29/19 09:00 08/31/19 08:32 Lovenox SUB-Q 40 mg DAILY JOEY Administration Glucagon 1 mg 08/29/19 18:21 Glucagon For Inj IM PRN PRN Hypoglycemia Protocol Glucose 15 gm 08/29/19 18:21 Glutose 15 PO PRN PRN Hypoglycemia Protocol Dextrose 1,000 mls @ 100 mls/hr 08/29/19 18:21 Dextrose 5% 1,000 Ml IVPB PRN PRN Hypoglycemia Protocol Insulin Aspart 4 - 8 units 08/30/19 08:00 08/31/19 08:38 Novolog SUB-Q Not Given TIDWM JOEY Protocol Insulin Glargine 25 units 08/30/19 09:29 08/31/19 08:38 Lantus SUB-Q 25 units Q12HR JOEY Administration Lisinopril 40 mg
--- NOTE | 2019-08-31 13:35 | PCCDE ---
Diabetes education f/up: noted new insulin orders units Lantus q12Hr, increased to high dose correction scale Met with pt; pt sts hasn't given self injection yet. Sts he is a little worried about going home. Pt was unable to state how insulin affects BG or to differentiate sx of hypo and hyperglycemia. Reviewed causes, sx and tx of hypo and hyperglycemia. Discussed how insulin affects BG. Explained basal insulin orders and when to take. Provided emotional support. Encouraged pt to f/up with PCP and adaptive physical educator. Spoke with GEORGE Sorensen and reminded to have pt do self injection. Left message for Dr Moser regarding plan for home DM meds.
[2019-08-31 15:13] LABS: Glucose Point of Care 207 (65-105)
[2019-08-31] MEDS: INSULIN ASPART (*BKC) 100 UNITS/ML SUB-Q ×2 (15:15→17:43)
--- NOTE | 2019-08-31 15:25 | PC.NURSE ---
Patient self administered noon dose of insulin with little need for coaching. Will continue to have patient self administer insulin when appropriate.
[2019-08-31 17:41] LABS: Glucose Point of Care 267 (65-105)
--- NOTE | 2019-08-31 18:18 | PM.IMPN ---
Progress Note: A&P Assessment and Plan (1) Septic shock: Code(s): A41.9 - Sepsis, unspecified organism; R65.21 - Severe sepsis with septic shock Status: Acute (2) DKA (diabetic ketoacidoses): Qualifiers: Diabetes mellitus complication detail: without coma Diabetes mellitus type: other specified (including ADRYAN) Qualified Code(s): E13.10 - Other specified diabetes mellitus with ketoacidosis without coma Code(s): E11.10 - Type 2 diabetes mellitus with ketoacidosis without coma Status: Acute (3) Acute dehydration: Code(s): E86.0 - Dehydration Status: Acute (4) Elevated LFTs: Code(s): R94.5 - Abnormal results of liver function studies Status: Acute (5) Hypertension: Code(s): I10 - Essential (primary) hypertension Status: Acute (6) Chest pain: Qualifiers: Chest pain type: other chest pain Qualified Code(s): R07.89 - Other chest pain Code(s): R07.9 - Chest pain, unspecified Status: Acute Assessment and Plan: Patient does meet criteria for septic shock with hypotension, leukocytosis, and lactic acid level of 4.2. Findings could also be due to profound dehydration as well. He is receiving aggressive IV fluid rehydration, 30 mg/kg bolus. Will repeat lactic acid level thereafter. Blood cultures will be obtained. New diagnosis of diabetes presenting in DKA with hyperglycemia, metabolic acidosis, and the presence of ketones. He will be started on insulin infusion per DKA protocol. Electrolytes will be monitored closely and we will check for gap closure (anion gap 18 on arrival). Secondary to poor oral intake and vomiting as well as DKA. He is receiving aggressive IV fluid rehydration as above. Hepatic steatosis is noted on CT today. Will check hepatitis panel for completeness sake. Consider possible gallbladder dysfunction given reported chest pressure, but that seems less likely. Patient states he stopped taking antihypertensives a month ago, but then told me he did take them this morning. Given soft blood pressures, we will hold any and all antihypertensives at this time. He certainly has risk factors for heart disease, and we will monitor him closely on telemetry. Will trend troponins as well to rule out acute coronary syndrome. No significant ST changes noted on EKG today. Subjective Date/time seen: 08/31/19 18:18 Exam Narrative: Exam Narrative: General: Well-developed, well-nourished male appearing older than his stated age, in bed in no acute distress. He is mildly ill in appearance. HEENT: Normocephalic, atraumatic. PERRL, EOMI. Sclerae anicteric. Oral mucosa dry. Neck: Supple. Respiratory: Lungs are clear to auscultation bilaterally. Cardiovascular: Regular rate and rhythm with S1-S2. Gastrointestinal: Abdomen is soft, nontender, and nondistended with positive bowel sounds. Skin: Warm and dry. No rash or lesions on limited exam. Extremities: No cyanosis, clubbing, or significant edema. Radial and pedal pulses intact. Neurological: Alert. Cranial nerves 2-12 are grossly intact. No gross focal deficits to casual conversation. Psychiatric: Pleasant and cooperative with normal mood and affect. Objective Data Vital Signs Vital Signs: Vital Signs - 24 hr 08/30/19 20:00 08/30/19 21:12 08/30/19 22:00 Temperature 36.8 C Pulse Rate 64 58 L 64 Respiratory Rate 16 Blood Pressure 167/95 H Pulse Oximetry 95 08/31/19 00:00 08/31/19 04:00 08/31/19 06:00 Temperature 36.0 C L Pulse Rate 59 L 53 L 59 L Respiratory Rate 16 Blood Pressure 149/85 H Pulse Oximetry 99 08/31/19 08:00 08/31/19 08:33 08/31/19 12:00 Temperature Pulse Rate 54 L 56 L 55 L Respiratory Rate Blood Pressure Pulse Oximetry 08/31/19 14:00 Temperature 36.9 C Pulse Rate 58 L Respiratory Rate 20 Blood Pressure 135/52 L Pulse Oximetry 94 Intake/
[2019-08-31] MEDS: MORPHINE SULFATE 4 MG/ML INJ IV PUSH (21:28)
[2019-08-31] MEDS: MELATONIN 5 MG TABLET PO (21:28)
[2019-09-01] MEDS: MORPHINE SULFATE 4 MG/ML INJ IV PUSH (00:25)
[2019-09-01 05:35] LABS: Glucose Point of Care 256 (65-105)
[2019-09-01 06:00] VITALS: BP 154/91; PULSE 54; RESP 16; TEMP 36.3; O2SAT 95
[2019-09-01 06:14] LABS: Hematocrit 43.5 % (42.0-52.0); Hemoglobin 14.3 g/dL (14.0-18.0); Mean Corpuscular HGB Conc 32.9 g/dl (32-36); Mean Corpuscular Hemoglobin 29.2 pg (26-34); Mean Corpuscular Volume 88.8 fl (80-100); Mean Platelet Volume 11.7 fl (7.4-10.4); Platelet Count Result 193 k/mm3 (150-375); Red Cell Distribution Width 12.9 % (11.5-14.5); White Blood Count 10.9 K/mm3 (4.5-10.0)
[2019-09-01 06:25] LABS: Blood Urea Nitrogen 12 mg/dL (9-20); Calcium 9.4 mg/dL (8.4-10.2); Carbon Dioxide 26 mmol/L (22-30); Chloride 104 mmol/L (98-107); Estimated CRCL calculation 103 ml/min; Estimated Glomerular Filt Rate > 60; Glucose 175 mg/dL (75-110); Potassium 3.4 mmol/L (3.4-5.0); Sodium 136 mmol/L (137-145)
[2019-09-01 08:05] VITALS: PULSE 63
[2019-09-01] MEDS: ATORVASTATIN 20 MG TABLET PO (08:05)
[2019-09-01] MEDS: VENLAFAXINE HCL XR 75 MG CAP.ER.24H 150 MG PO (08:05)
[2019-09-01] MEDS: carvediloL 3.125 MG TABLET PO (08:05)
[2019-09-01] MEDS: lisinopriL 20 MG TABLET 40 MG PO (08:05)
[2019-09-01] MEDS: AMLODIPINE BESYLATE 5 MG TABLET PO (08:06)
[2019-09-01] MEDS: ENOXAPARIN 40 MG/0.4 ML SYRINGE SUB-Q (08:07)
[2019-09-01] MEDS: INSULIN GLARGINE (*BKC) 100 UNITS/ML 25 UNITS SUB-Q (08:09)
[2019-09-01 08:44] LABS: Glucose Point of Care 195 (65-105)
[2019-09-01 11:07] VITALS: O2SAT 97
[2019-09-01] MEDS: INSULIN ASPART (*BKC) 100 UNITS/ML SUB-Q (11:40)
[2019-09-01 11:49] LABS: Glucose Point of Care 302 (65-105)
--- NOTE | 2019-09-01 12:05 | PM.DS ---
DS: Diagnosis Admitting Diagnosis Admitting Diagnosis: Sepsis, unspecified organism Discharge Diagnosis (1) Septic shock: Code(s): A41.9 - Sepsis, unspecified organism; R65.21 - Severe sepsis with septic shock Status: Ruled-out (2) DKA (diabetic ketoacidoses): Qualifiers: Diabetes mellitus complication detail: without coma Diabetes mellitus type: other specified (including ADRYAN) Qualified Code(s): E13.10 - Other specified diabetes mellitus with ketoacidosis without coma Code(s): E11.10 - Type 2 diabetes mellitus with ketoacidosis without coma Status: Acute (3) Acute dehydration: Code(s): E86.0 - Dehydration Status: Resolved (4) Elevated LFTs: Code(s): R94.5 - Abnormal results of liver function studies Status: Acute (5) Hypertension: Code(s): I10 - Essential (primary) hypertension Status: Chronic (6) Chest pain: Qualifiers: Chest pain type: other chest pain Qualified Code(s): R07.89 - Other chest pain Code(s): R07.9 - Chest pain, unspecified Status: Resolved Assessment and Plan: Mr. Lozada is a 54-year-old male with history of hypertension, hyperlipidemia, depression, and anxiety who presented to the emergency department earlier this evening via private vehicle from home for evaluation of chest pressure. Pt has history of depression. Pt newly diagnoses DM. Seen by ICU and cardiology. Was in ICU for DKA Started on insulin and fluids. EKG abnormal but no ST elevation. Serial troponins negative. Echo completed, cardiology will follow in his office. Pt started on lantus insulin for new diagnosed DM. Patient did meet criteria for septic shock with hypotension, leukocytosis, and lactic acid level of 4.2. lactic acid has normalized after rehydration. Patient was started on empiric antibiotics and cultures were sent. Cultures were negative and emphric ABX were stopped. Pt has been seen by Dm educator. DS: Summary Time Spent with Patient Time attestation: Total time spent providing and/or coordinating discharge services:38 minutes on day of discharge Exam Narrative: Exam Narrative: General: Well-developed, well-nourished male appearing older than his stated age, in bed in no acute distress. He is mildly ill in appearance. HEENT: Normocephalic, atraumatic. PERRL, EOMI. Sclerae anicteric. Oral mucosa dry. Neck: Supple. Respiratory: Lungs are clear to auscultation bilaterally. Cardiovascular: Regular rate and rhythm with S1-S2. Gastrointestinal: Abdomen is soft, nontender, and nondistended with positive bowel sounds. Skin: Warm and dry. No rash or lesions on limited exam. Extremities: No cyanosis, clubbing, or significant edema. Radial and pedal pulses intact. Neurological: Alert. Cranial nerves 2-12 are grossly intact. No gross focal deficits to casual conversation. Psychiatric: Pleasant and cooperative with normal mood and affect. DS: Data Data Completed and Pending Labs on day of discharge: Labs from last 24 hours 09/01/19 09/01/19 09/01/19 11:38 08:04 05:37 WBC RBC Hgb Hct MCV MCH MCHC RDW Plt Count MPV Sodium 136 L Potassium 3.4 Chloride 104 Carbon Dioxide 26 BUN 12 Creatinine 0.80 Estim Creat Clear Calc 103 Estimated GFR > 60 Glucose 175 H POC Capillary Glucose 302 H 195 H Calcium 9.4 Magnesium 2.0 09/01/19 08/31/19 08/31/19 05:37 21:28 17:39 WBC 10.9 H RBC 4.90 Hgb 14.3 Hct 43.5 MCV 88.8 MCH 29.2 MCHC 32.9 RDW 12.9 Plt Count 193 MPV 11.7 H Sodium Potassium Chloride Carbon Dioxide BUN Creatinine Estim Creat Clear Calc Estimated GFR Glucose POC Capillary Glucose 256 H 267 H Calcium Magnesium 08/31/19 15:11 WBC RBC Hgb Hct MCV MCH MCHC RDW Plt Count MPV Sodium Potassium Chloride Carbon Dioxide BU
[2019-09-01 14:00] VITALS: BP 128/67; PULSE 63; RESP 15; TEMP 37; O2SAT 97
== END 2019-09-01 15:58 | disposition home or self-care (01) | DRG 638 ==
LOC: ANHED 19:56 → ANHICU 20:16 → ANH2MED 09-01 12:05 → ANHICU 09-06 10:22
PROVIDERS: Internal Medicine; Physician Assistant; Admitting Provider Internal Medicine; Emergency Provider Emergency Medicine; PCP Family Medicine; Visit Provider Family Medicine
DX: E11.10 Type 2 diabetes mellitus with ketoacidosis without coma (principal); N17.9 Acute kidney failure, unspecified; E87.2 Acidosis; I10 Essential (primary) hypertension; E78.5 Hyperlipidemia, unspecified; F41.8 Other specified anxiety disorders; K21.9 Gastro-esophageal reflux disease without esophagitis; Z87.891 Personal history of nicotine dependence; E86.0 Dehydration; K76.0 Fatty (change of) liver, not elsewhere classified; E87.6 Hypokalemia; R07.9 Chest pain, unspecified
CPT/HCPCS: 36415; 36600; 71045; 71260; 74177; 80048; 80061; 80074; 80076; 80202; 80307; 81001; 82010; 82375; 82805; 82948; 83036; 83050; 83605; 83690; 83735; 84100; 84443; 84484; 85025; 85027; 85610; 85730; 86140; 86850; 86900; 86901; 87040; 87081; 93005; 93306; 96365; 96366; 96367; 96375; 99291; A9270; J0131; J0692; J1650; J1815; J2270; J2405; J3370; J3480; J7030; Q9967

== ENCOUNTER 2024-09-09 12:57 | Outpatient (CLI) | payer MEDICAID, SELFPAY ==
--- NOTE | ~2024-09-09 | US_ITS ---
US retroperitoneal comp 09/09/2024 13:16 Procedure: Realtime transabdominal ultrasound of the kidneys and bladder. Indication: Chronic kidney disease stage III Comparison: No prior studies for comparison. Findings: Renal echotexture is normal bilaterally without hydronephrosis, contour deforming mass or r enal calculus. There is a right renal cyst measuring 2.7 cm. The right kidney measures 9.8 cm and lef t kidney measures 11.2 cm. There is an echogenic focus in the left kidney measuring 9 mm, likely a re nal stone. No hydronephrosis. Bladder within normal limits. Impression: 1: Right renal cyst measuring 2.7 cm. 2: Echogenic focus measuring 9 mm of the left kidney without hydronephrosis, likely nonobstructing re nal stone. Reviewed, dictated and finalized at location B. Impression: 1: Right renal cyst measuring 2.7 cm. 2: Echogenic focus measuring 9 mm of the left kidney without hydronephrosis, tahira kaur nonobstructing renal stone.
== END 2024-09-09 12:58 | disposition home or self-care (01) ==
LOC: MICIMG 13:00
PROVIDERS: PCP Specialist; Visit Provider Specialist
DX: N18.32 Chronic kidney disease, stage 3b (principal); N28.1 Cyst of kidney, acquired
CPT/HCPCS: 76770

== ENCOUNTER 2024-11-30 22:07 | Observation (INO) | payer MEDICAID, SELFPAY ==
--- NOTE | ~2024-11-30 | CT_ITS ---
Clinical Indication: Chest pain, abdominal pain CT Scan of the Chest, Abdomen, and Pelvis without Contrast: Technique: Contiguous sections were acquired throughout the chest, abdomen, and pelvis without IV con trast administration. Dose reduction technique was used on this scan by utilizing automated exposure control and iterative reconstruction technique. The dose-length product (DLP) was 1501.16 mGy-cm. Findings: There is no evidence of any significant mediastinal, hilar or axillary lymphadenopathy. The mediastin al soft tissues appear normal. There is no evidence of pleural or pericardial effusion. There is an irregular groundglass opacification the right lung apex (axial image 31). 9 mm right uppe r lobe pulmonary nodule present (axial image 53) with possible faint associated calcification. Focal scarring at the peripheral right middle lobe. There is also probable focal scarring at the kiran pheral left upper lobe and in the left lower and right lower lobes. The liver, spleen, pancreas, adrenals and right kidney are within normal limits. Small gallstone pres ent. 8 mm nonobstructing left renal stone present. No evidence of aortic aneurysm. No lymphadenopath y. No bowel obstruction or bowel wall thickening. There is no evidence to suggest acute appendicitis. Urinary bladder is unremarkable. No pelvic mass seen. No ascites. Impression: Irregular groundglass opacity right lung apex, likely focal scarring. Additional 9 mm right upper lob e nodule with possible faint calcification, indeterminate, but possibly granuloma. Recommended follow -up CT scan in 3 months to reassess the above findings. Cholelithiasis. 8mm nonobstructing left renal stone. Reviewed, dictated and finalized at location . Impression: Irregular groundglass opacity right lung apex, likely focal scarring. Additiona l 9 mm right upper lobe nodule with possible faint calcification, indeterminate , but possibly granuloma. Recommended follow-up CT scan in 3 months to reassess the above findings. Cholelithiasis. 8mm nonobstructing left renal stone.
--- NOTE | ~2024-11-30 | XR_ITS ---
XR chest 2V Ordering provider: Fredrick Healy MD History: 59 years Male with . DIZZINESS . Comparison: August 28, 2019 FINDINGS: MEDIASTINUM: The cardiac silhouette is not enlarged. LUNGS: No infiltrates, effusions or pneumothorax. OTHER: No free air under the diaphragm. IMPRESSION: No acute cardiopulmonary pathology. Reviewed, dictated and finalized at location A.
--- OUTSIDE RECORDS SUMMARY | 2024-11-30 22:11 | XMS_ITS | Encounter Summary ---
Author Organization [facility] Address 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 Gender Identity Not on file Sexual Orientation Not on file documented as of this encounter Plan of Treatment Not on file documented as of this encounter Procedures Procedure Name Priority Date/Time Associated Diagnosis Comments HEMOGLOBIN AND HEMATOCRIT Routine 11/01/2007 12:50 PM CDT BASIC METABOLIC PANEL Routine 11/01/2007 12:50 PM CDT TYPE AND SCREEN Routine 11/01/2007 12:49 PM CDT documented in this encounter Results * HEMOGLOBIN AND HEMATOCRIT (11/01/2007 12:50 PM CDT) HEMOGLOBIN 15.5 13.6 - 16.5 g/dL [facility] HEMATOCRIT 46.4 40.0 - 48.0 % [facility] Blood specimen (specimen) 11/01/2007 12:50 PM CDT 11/01/2007 2:03 PM CDT us Andrew Pardo MD HEMATOLOGY ORDERABLES Final R esult [facility] CLIA# [id number] [address] [place] [address] * (ABNORMAL) BASIC METABOLIC PANEL (11/01/2007 12:50 PM CDT) CREATININE 1.08 0.67 - 1.17 mg/dL [facility] POTASSIUM 3.7 3.5 - 4.9 mmol/L [facility] BUN 17 6 - 20 mg/dL [facility] CHLORIDE 102 96 - 108 mmol/L [facility] GLUCOSE 102(H) 65 - 99 mg/dL [facility] SODIUM 138 135 - 145 mmol/L [facility] CALCIUM 9.5 8.4 - 10.2 mg/dL [facility] CO2 23 22 - 30 mmol/L [facility] GFR, >60 >=60 mL/min/1. 7 sq meter [facility] GFR >60 >=60 mL/min/1. 7 sq meter [facility] Comment: Estimated GFR rate interpretative information for both Americans and non- Americans is available on the [facility] at: [email or web address] Select: Lab Policies and Procedures Select: Reference Ranges - GFR Blood specimen (specimen) 11/01/2007 12:50 PM CDT 11/01/2007 2:03 PM CDT us Andrew Pardo MD CHEMISTRY ORDERABLES Edited [facility] CLIA# [id number] [address] [place] [address] * TYPE AND SCREEN (11/01/2007 12:49 PM CDT) HISTORY CHECK No Historical ABO/Rh [facility] SPECIMEN LIFE 3 days from OR date [facility] ANTIBODY SCREEN Negative [facility] ABO/RH TYPE O Negative [facility] Blood specimen (specimen) 11/01/2007 12:49 PM CDT us Andrew Pardo MD BLOOD BANK ORDERABLES Edited [facility] CLIA# [id number] [address] [place] [address] documented in this encounter Visit Diagnoses Not on filedocumented in this encounter
--- OUTSIDE RECORDS SUMMARY | 2024-11-30 22:11 | XMS_ITS | Patient Health Record ---
Author Organization [facility] Address [address] [facility] [address] [place] [address] Care Team Providers Care Shingle Packer Name Role Phone Micheal Diamond Unavailable [phone] Reason For Referral No Information Medications Medication SIG (Take, Route, Frequency, Duration) Notes Start Date End Date Status Ergocalciferol 1.25 MG (18982 UT) 1 capsule Orally Once a week for 90 day(s) 09/07/2024 06/25/2025 Active Allopurinol 100 MG 1 tablet Orally Once a day for 90 days 09/28/2024 09/23/2025 Active Calcitriol 0.5 MCG TAKE [address] [facility] EVERY DAY FOR 30 DAYS for 90 Active Social History Sex Assigned At : Social History Observation Description Sex Assigned At Male Problems Problem Type SNOMED Code ICD Code Onset Dates Problem Status W/U Status Risk Notes Problem Diabetic renal disease (466918349) Type 2 diabetes mellitus with diabetic chronic kidney disease (E11.22) Active confirmed Problem Vitamin D deficiency (02282586) Vitamin D deficiency, unspecified (E55.9) Active confirmed Problem Hyperlipidemia (07236241) Hyperlipidemia, unspecified (E78.5) Active confirmed Problem Hyperuricemia withou t signs of inflammatory arthritis and tophaceous disease (425162206) Hyperuricemia without signs of inflammatory arthritis and tophaceous disease (E79.0) Active confirmed Problem Renal osteodystrophy (47303949) Renal osteodystrophy (N25.0) Active confirmed Problem Secondary hyperparathyroidism of renal origin (51217972) Secondary hyperparathyroidism of renal origin (N25.81) Active confirmed Problem Chest pain (03283366) Chest pain , unspecified (R07.9) Active confirmed Problem Tremor (38102755) Tremor, unspec ified (R25.1) Active confirmed Problem Glycosuria (73721677) Glycosuria (R81) Active c onfirmed Problem Tobacco use (525790108) Tobacco use (Z72.0) Active confirmed Problem Essential hypertension (28823332) Essential hypertension (I10) Active confirmed Problem Chronic kidney disease stage 3B (disorder) (488151545) Chronic kidney disease, stage 3b (N18.32) Active confirmed Problem Coronary artery disease (32088062) CAD (coronary artery disease) (I25.10) Active confirmed Problem Acidosis (disorder) (05680292) Acidosis, unspecified (E87.20) Active confirmed Encounters Encounter Location Date Provider Diagnosis [facility] [address] [address] 07/27/2024 Micheal Diamond Chronic kidney disea se, stage 3b N18.32 ; Abnormal radiologic findings on diagnostic imaging of unspecified kidney R93.429 ; End stage renal disease N18.6 ; Chest pain, unspecified R07.9 ; CAD (coronary artery disease) I25.10 ; Hyperlipidemia, unspecified E78.5 and Renal osteodystrophy N25.0 [facility] [address] [address] 09/07/2024 Micheal Diamond Chronic kidney disea se, stage 3b N18.32 ; CAD (coronary artery disease) I25.10 ; Hyperlipidemia, unspecified E78.5 ; Renal osteodystrophy N25.0 ; Nicotine dependence, unspecified, uncomplicated F17.200 ; Acidosis, unspecified E87.20 and Chest pain, unspecified R07.9 [facility] [address] [address] 09/28/2024 Micheal Diamond Chronic kidney disea se, stage 3b N18.32 ; Essential hypertension I10 ; CAD (coronary artery disease) I25.10 ; Hyperlipidemia, unspecified E78.5 ; Renal osteodystrophy N25.0 ; Nicotine dependence, unspecified, uncomplicated F17.200 ; Secondary hyperparathyroidism of renal origin N25.81 ; Acidosis, unspecified E87.20 ; Chest pain, unspecified R07.9 ; Vitamin D deficiency, unspecified E55.9 ; Glycosuria R81 ; Hyperuricemia without signs of inflammatory arthritis and tophaceous disease E79.0 ; Type 2 diabetes mellitus with diabetic chronic kidney disease E11.22 ; Tobacco use Z72.0 and Tremor, unspecified R25.1 [facility] [address] [address] 10/26/2024 Micheal Diamond Chronic kidney disea se, stage 3b N18.32 ; Essential hypertension I10 ; CAD (coronary artery disease) I25.10 ; Hyperlipidemia, unspecified E78.5 ; Renal osteodystrophy N25.0 ; Secondary hyperparathyroidism of renal origin N25.81 ; Acidosis, unspecified E87.20 ; Chest pain, unspecified R07.9 ; Vitamin D deficiency, unspecified E55.9 ; Glycosuria R81 ; Hyperuricemia without signs of inflammatory arthritis and tophaceous disease E79.0 ; Type 2 diabetes mellitus with diabetic chronic kidney disease E11.22 ; Tobacco use Z72.0 and Tremor, unspecified R25.1 [facility] [address] [place] [address] 09/07/2024 Micheal Diamond [facility] [address] [place] [address] 09/28/2024 Micheal Diamond Assessments Encounter Date Diagnosis (ICD Code) Assessment Notes Treatment Notes Treatment Clinical Notes Section Notes 07/27/2024 Abnormal radiologic findings on diagnostic imaging of unspecified kidney (ICD-10 - R93.429) 07/27/2024 Chronic kidney disea se, stage 3b (ICD-10 - N18.32) 09/07/2024 Chronic kidney disea se, stage 3b (ICD-10 - N18.32) 09/28/2024 Chronic kidney disea se, stage 3b (ICD-10 - N18.32) 10/26/2024 Chronic kidney disea se, stage 3b (ICD-10 - N18.32) 10/26/2024 Essential hypertensi on (ICD-10 - I10) 09/28/2024 Essential hypertensi on (ICD-10 - I10) 09/07/2024 CAD (coronary artery disease) (ICD-10 - I25.10) 07/27/2024 End stage renal dise ase (ICD-10 - N18.6) 07/27/2024 Chest pain, unspecif ied (ICD-10 - R07.9) 09/07/2024 Hyperlipidemia, unspecified (ICD-10 - E78.5) 09/28/2024 CAD (coronary artery disease) (ICD-10 - I25.10) 10/26/2024 CAD (coronary artery disease) (ICD-10 - I25.10) 10/26/2024 Hyperlipidemia, unspecified (ICD-10 - E78.5) 07/27/2024 CAD (coronary artery disease) (ICD-10 - I25.10) 09/07/2024 Renal osteodystrophy (ICD-10 - N25.0) 09/28/2024 Hyperlipidemia, unspecified (ICD-10 - E78.5) 09/07/2024 Nicotine dependence, unspecified, uncomplicated (ICD-10 - F17.200) 07/27/2024 Hyperlipidemia, unspecified (ICD-10 - E78.5) 09/28/2024 Renal osteodystrophy (ICD-10 - N25.0) 10/26/2024 Renal osteodystrophy (ICD-10 - N25.0) 10/26/2024 Secondary hyperparathyroidism of renal origin (ICD-10 - N25.81) 09/28/2024 Nicotine dependence, unspecified, uncomplicated (ICD-10 - F17.200) 07/27/2024 Renal osteodystrophy (ICD-10 - N25.0) 09/07/2024 Acidosis, unspecifie d (ICD-10 - E87.20) 09/07/2024 Chest pain, unspecif ied (ICD-10 - R07.9) 09/28/2024 Secondary hyperparathyroidism of renal origin (ICD-10 - N25.81) 10/26/2024 Acidosis, unspecifie d (ICD-10 - E87.20) 10/26/2024 Chest pain, unspecif ied (ICD-10 - R07.9) 09/28/2024 Acidosis, unspecifie d (ICD-10 - E87.20) 10/26/2024 Vitamin D deficiency , unspecified (ICD-10 - E55.9) 09/28/2024 Chest pain, unspecif ied (ICD-10 - R07.9) 09/28/2024 Vitamin D deficiency , unspecified (ICD-10 - E55.9) 10/26/2024 Glycosuria (ICD-10 - R81) 09/28/2024 Glycosuria (ICD-10 - R81) 10/26/2024 Hyperuricemia withou t signs of inflammatory arthritis and tophaceous disease (ICD-10 - E79.0) 10/26/2024 Type 2 diabetes mellitus with diabetic chronic kidney disease (ICD-10 - E11.22) 09/28/2024 Hyperuricemia withou t signs of inflammatory arthritis and tophaceous disease (ICD-10 - E79.0) 09/28/2024 Type 2 diabetes mellitus with diabetic chronic kidney disease (ICD-10 - E11.22) 10/26/2024 Tobacco use (ICD-10 - Z72.0) 10/26/2024 Tremor, unspecified (ICD-10 - R25.1) 09/28/2024 Tobacco use (ICD-10 - Z72.0) 09/28/2024 Tremor, unspecified (ICD-10 - R25.1) Plan Of Treatment Next Appt Details Provider Name:Micheal Diamond , 12/07/2024 03:15:00 PM, [address], [facility] [address], [place], [address],
--- OUTSIDE RECORDS SUMMARY | 2024-11-30 22:11 | XMS_ITS ---
Author Organization [facility] Address [address] [place] [address] Care Team Providers Care Manager Truck Name Role Phone Micheal Diamond Unavailable [phone] Social History Sex Assigned At : Social History Observation Description Sex Assigned At Male Encounters Encounter Location Date Provider Diagnosis [facility] [address] [facility] [address] [place] [address] 10/26/2024 Micheal Diamond Chronic kidney disea se, [...] Tobacco use Z72.0 and Tremor, unspecified R25.1 Assessments Encounter Date Diagnosis (ICD Code) Assessment Notes Treatment Notes Treatment Clinical Notes Section Notes 10/26/2024 Chronic kidney disea se, stage 3b (ICD-10 - N18.32) 10/26/2024 Essential hypertensi on (ICD-10 - I10) 10/26/2024 CAD (coronary artery disease) (ICD-10 - I25.10) 10/26/2024 Hyperlipidemia, unspecified (ICD-10 - E78.5) 10/26/2024 Renal osteodystrophy (ICD-10 - N25.0) 10/26/2024 Secondary hyperparathyroidism of renal origin (ICD-10 - N25.81) 10/26/2024 Acidosis, unspecifie d (ICD-10 - E87.20) 10/26/2024 Chest pain, unspecif ied (ICD-10 - R07.9) 10/26/2024 Vitamin D deficiency , unspecified (ICD-10 - E55.9) 10/26/2024 Glycosuria (ICD-10 - R81) 10/26/2024 Hyperuricemia withou t signs of inflammatory arthritis and tophaceous disease (ICD-10 - E79.0) 10/26/2024 Type 2 diabetes mellitus with diabetic chronic kidney disease (ICD-10 - E11.22) 10/26/2024 Tobacco use (ICD-10 - Z72.0) 10/26/2024 Tremor, unspecified (ICD-10 - R25.1) Plan Of Treatment Next Appt Details Provider Name:Micheal Diamond , 12/07/2024 03:15:00 PM, [address], [facility], Progress Notes * Fred LOZADADOB:1965 ( 59 yo M)Acc No.[id number]:10/26/2024 Progress Notes Patient: Fred FOSTER Provider: William ANDREA MD, F.A.C.P, F.A.S.N. :1965 A ge:59 Y S ex:Male Date:10/26/2024 Address:[address] [place] [address] Subjective: * Chief Complaints: * * Medical History: Objective: * Vitals: Assessment: * Assessment: 1. C hronic kidney disease, stage 3b - N18.32 (Primary) 2 . E ssential hypertension - I10 3 . C AD (coronary artery disease) - I25.10 4 .?Hyperlipidemia, unspecified - E78.5 5 . R enal osteodystrophy - N25.0 & #160; 6 . S econdary hyperparathyroidism of renal origin - N25.81 7 . A cidosis, unspecified - E87.20 8 . C hest pain, unspecified - R07.9 ?9. V itamin D deficiency, unspecified - E55.9 1 0. G lycosuria - R81 11. H yperuricemia without signs of inflammatory arthritis and tophaceous disease - E79.0 1 2. T ype 2 diabetes mellitus with diabetic chronic kidney disease - E11.22 1 3. T obacco use - Z72.0 1 4. T remor, unspecified - R25.1 Plan: * Treatment: * Billing Information: * Visit Code: 67697 Office Visit, Est Pt., Level 4. * Procedure Codes: * Electronic signature of Crispin Diamond MD on 11/30/2024 at 10:10 PM CDT Sign off status: Pending * Provider: William ANDREA MD, F.A.C.P, F.A.S.N. Date: 0 10/26/2024 Generated for Printing/Faxing/eTransmitting on: 0 11/30/2024 10:10 PM CDT
--- OUTSIDE RECORDS SUMMARY | 2024-11-30 22:11 | XMS_ITS | Encounter Summary ---
Author Organization [facility] Address 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 Gender Identity Not on file Sexual Orientation Not on file documented as of this encounter Plan of Treatment Not on file documented as of this encounter Procedures Procedure Name Priority Date/Time Associated Diagnosis Comments XR LUMBAR SPINE 1 VW Routine 11/25/2007 9:45 AM CDT TYPE AND SCREEN Routine 11/25/2007 7:08 AM CDT documented in this encounter Results * XR LUMBAR SPINE 1 VW (11/25/2007 9:45 AM CDT) Anatomical Region Laterality Modality Spine Other 11/25/2007 9:45 AM CDT Narrative 11/25/2007 1:32 PM CDT [place] [address] [place], [place] [address] Admit Date: 11/25/2007 BHAVIK LOZADA Sex: M Admit Prov: ANDREW ZHONG Date: 1965 Primary Care Prov: CMRN: [id number] Room: [place] [address] SSN: [id number] IMAGING SERVICES Ordering Prov: N/A Accession Number: [id number] Interpretation LUMBAR SPINE ONE VIEW, 11/25/07 AT 0955 HOURS. Clinical History: Lumbar disc displacement. Findings: A portable crosstable lateral radiograph obtained in the operating room demonstrates surgical instruments posterior to L5-S1. . Dictated by: RADHA WASHINGTON 11/25/2007 11:15 Electronically signed by: RADHA WASHINGTON 11/25/2007 13:32 Transcribed: 11/25/2007 13:25 LE Procedure Note Radha Washington MD - 11/25/2007 [facility] [address] [place], [place] [address] Admit Date: 11/25/2007 BHAVIK LOZADA Sex: M Admit Prov: ANDREW ZHONG Date: 1965 Primary Care Prov: CMRN: [id number] Room: [place] [address] SSN: [id number] IMAGING SERVICES Ordering Prov: N/A Interpretation LUMBAR SPINE ONE VIEW, 11/25/07 AT 0955 HOURS. Clinical History: Lumbar disc displacement. Findings: A portable crosstable lateral radiograph obtained in the operating room demonstrates surgical instruments posterior toL5-S1. . Dictated by: RADHA WASHINGTON 11/25/2007 11:15 Electronically signed by: RADHA WASHINGTON 11/25/2007 13:32 Transcribed: 11/25/2007 13:25 LE Andrew Zhong MD DIAGNOSTIC IMAGING ORDERABLES Final Result * TYPE AND SCREEN (11/25/2007 7:08 AM CDT) ABO/RH TYPE O Negative [facility] SPECIMEN LIFE 3 days from drawdate [facility] HISTORY CHECK History Checked [facility] ANTIBODY SCREEN Negative [facility] Blood specimen (specimen) 11/25/2007 7:08 AM CDT Andrew Zhong MD BLOOD BANK ORDERABLES Edited [facility] CLIA# [id number] [address] [place] [place] [address] documented in this encounter Visit Diagnoses Diagnosis Displacement of intervertebral disc, site unspecified, without myelopathy documented in this encounter
--- OUTSIDE RECORDS SUMMARY | 2024-11-30 22:11 | XMS_ITS | Clinical Summary ---
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
[2024-11-30 22:12] VITALS: BP 112/81; PULSE 66; RESP 16; TEMP 37; O2SAT 98
--- OUTSIDE RECORDS SUMMARY | 2024-11-30 22:12 | XMS_ITS | Referral Summary ---
Author Organization [facility] Address [address] [place] [address] Care Team Providers Care Assurance Assistant Name Role Phone Ila Jerome MD Primary Care Provider [phone] Encounters Date Type Department Care Team Description 09/13/2024 Telephone [facility] [address] [place] [address] [address], [place] [address] Jovon Beckett MD from Last 3 Months Allergies No known active allergies Medications ALPRAZolam (XANAX) 1 mg tabletIndication s:Leukocytosis, unspecified type Take 1 mg by mouth 2 (two) times a day. 0 11/12/2017 Active amLODIPine (NORVASC) 5 mg tabletIndication s:Leukocytosis, unspecified type 2 11/03/2017 Ac tive ARIPiprazole (ABILIFY) 5 mg tabletIndication s:Leukocytosis, unspecified type 11/28/2017 Ac tive atorvastatin (LIPITOR) 20 mg tabletIndication s:Leukocytosis, unspecified type 5 11/03/2017 Ac tive VITAMIN D2 50,000 unit capsuleIndicatio ns:Leukocytosis, unspecified type 5 11/20/2017 Ac tive lisinopril (PRINIVIL,ZESTRI L) 40 mg tabletIndication s:Leukocytosis, unspecified type 5 11/03/2017 Ac tive venlafaxine 150 mg tablet extended release 24hr 24 hr tabletIndication s:Leukocytosis, unspecified type 11/28/2017 Ac tive busPIRone (BUSPAR) 10 mg tabletIndication s:Generalized Anxiety Disorder Take 10 mg by mouth 3 (three) times a day. 0 12/04/2017 Active carvediloL (COREG) 3.125 mg tablet TAKE 1 TABLET BY MOUTH EVERY 12 HOURS 90 tablet 1 10/03/2019 Active Active Problems Problem Noted Date Diagnosed Date Abnormal stress test 07/15/2024 Troponin level elevated 09/27/2019 Major depressive disorder 12/14/2017 Hyperlipidemia 12/14/2017 Leukocytosis 11/30/2017 Social History Tobacco Use Types Packs/Day Years Used Date Smoking Tobacco: Never Smokeless Tobacco: Never Alcohol Use Standard Drinks/Week Comments Not Currently 2 (1 standard drink = 0.6 oz pur e alcohol) Sex and Gender Information Value Date Recorded Sex Assigned at Not on file 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 Gender Identity Not on file Sexual Orientation Not on file 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 Not on file Not on file Not on file Last Filed Vital Signs Vital Sign Reading Time Taken Comments Blood Pressure 156/94 12/14/2017 9:23 AM CDT Pulse 63 12/14/2017 9:23 AM CDT Temperature 36.3 C (97.3 F) 03/27/2020 10:19 AM CDT Respiratory Rate - - Oxygen Saturation - - Inhaled Oxygen Concentration - - Weight 101.6 kg (224 lb) 12/14/2017 9:23 AM CDT Height 180.3 cm (5' 11) 12/14/2017 9:23 AM CDT Body Mass Index 31.24 12/14/2017 9:23 AM CDT Plan of Treatment Not on file Insurance [employer] P[employer]ED [employer] Member Subscriber Plan / Payer (Ef fective 2017-Present) Name:Fred Lozada Relation to Subscriber:Self Name:Fred Lozada Payer ID:[id number] Group ID:Not on file Type[place] Address: [address] [place] Member Subscriber Plan / Payer (Ef fective 2023-Present) Name:Fred Lozada Relation to Subscriber:Self Name:Fred Lozada Payer ID:[id number] Group ID:Not on file Type[place] Address: [address] Care Teams Assurance Assistant Relationship Specialty Start Date End Date Ila Jerome MD [address] [place] [address] [place] [address] PCP - General Family Medicine 11/30/17
--- OUTSIDE RECORDS SUMMARY | 2024-11-30 22:12 | XMS_ITS ---
Author Organization [facility] Address [address] [address] [place] [address] Care Team Providers Care Housekeeper Child Care Name Role Phone Micheal Diamond Unavailable [phone] Social History Sex Assigned At : Social History Observation Description Sex Assigned At Male Problems Problem Type SNOMED Code ICD Code Onset Dates Problem Status W/U Status Risk Notes Problem Essential hypertension (18158092) Essential hypertension (I10) Active confirmed Problem Secondary hyperparathyroidism of renal origin (27891211) Secondary hyperparathyroidism of renal origin (N25.81) Active confirmed Problem Vitamin D deficiency (48751695) Vitamin D deficiency, unspecified (E55.9) Active confirmed Problem Glycosuria (91372746) Glycosuria (R81) Active c onfirmed Problem Hyperuricemia withou t signs of inflammatory arthritis and tophaceous disease (800909802) Hyperuricemia without signs of inflammatory arthritis and tophaceous disease (E79.0) Active confirmed Problem Diabetic renal disease (209096273) Type 2 diabetes mellitus with diabetic chronic kidney disease (E11.22) Active confirmed Problem Tobacco use (284980172) Tobacco use (Z72.0) Active confirmed Problem Tremor (81047420) Tremor, unspec ified (R25.1) Active confirmed Encounters Encounter Location Date Provider Diagnosis [place] [facility] [address] [facility] [address] [place] [address] 09/28/2024 Micheal Diamond Chronic kidney disea se, [...] Treatment Notes Treatment Clinical Notes Section Notes 09/28/2024 Chronic kidney disea se, stage 3b (ICD-10 - N18.32) 09/28/2024 Essential hypertensi on (ICD-10 - I10) 09/28/2024 CAD (coronary artery disease) (ICD-10 - I25.10) 09/28/2024 Hyperlipidemia, unspecified (ICD-10 - E78.5) 09/28/2024 Renal osteodystrophy (ICD-10 - N25.0) 09/28/2024 Nicotine dependence, unspecified, uncomplicated (ICD-10 - F17.200) 09/28/2024 Secondary hyperparathyroidism of renal origin (ICD-10 - N25.81) 09/28/2024 Acidosis, unspecifie d (ICD-10 - E87.20) 09/28/2024 Chest pain, unspecif ied (ICD-10 - R07.9) 09/28/2024 Vitamin D deficiency , unspecified (ICD-10 - E55.9) 09/28/2024 Glycosuria (ICD-10 - R81) 09/28/2024 Hyperuricemia withou t signs of inflammatory arthritis and tophaceous disease (ICD-10 - E79.0) 09/28/2024 Type 2 diabetes mellitus with diabetic chronic kidney disease (ICD-10 - E11.22) 09/28/2024 Tobacco use (ICD-10 - Z72.0) 09/28/2024 Tremor, unspecified (ICD-10 - R25.1) Plan Of Treatment Next Appt Details Provider Name:Micheal Diamond , 12/07/2024 03:15:00 PM, [address] [facility] [address], [address], Progress Notes * Fred LOZADADOB:1965 ( 59 yo M)Acc No.[id number]:09/28/2024 Progress Notes Patient: Fred FOSTER Provider: William ANDREA MD, F.A.C.P, F.A.S.N. :1965 A ge:59 Y S ex:Male Date:09/28/2024 Address:[address] [place], [place] [id number] Subjective: * Chief Complaints: * * Medical History: Objective: * Vitals: Assessment: * Assessment: 1. C hronic kidney disease, stage 3b - N18.32 (Primary) 2 . E ssential hypertension - I10 3 . C AD (coronary artery disease) - I25.10 4 .?Hyperlipidemia, unspecified - E78.5 5 . R enal osteodystrophy - N25.0 & #160; 6 . N icotine dependence, unspecified, uncomplicated - F17.200 7 .?Secondary hyperparathyroidism of renal origin - N25.81 8 . A cidosis, unspecified - E87.20 9 . C hest pain, unspecified - R07.9 1 0. V itamin D deficiency, unspecified - E55.9 1 1. G lycosuria - R81 1 2. H yperuricemia without signs of inflammatory arthritis and tophaceous disease - E79.0 ? 1 3. T ype 2 diabetes mellitus with diabetic chronic kidney disease - E11.22 14. T obacco use - Z72.0 1 5. T remor, unspecified - R25.1 ? Plan: * Treatment: * Billing Information: * Visit Code: 27748 Office Visit, Est Pt., Level 4. * Procedure Codes: * Electronic signature of Crispin Diamond MD on 11/30/2024 at 10:11 PM CDT Sign off status: Pending * Provider: William ANDREA MD, F.Abad.Juju.P, F.A.S.N. Date: 0 09/28/2024 Generated for Printing/Faxing/eTransmitting on: 0 11/30/2024 10:11 PM CDT
--- OUTSIDE RECORDS SUMMARY | 2024-11-30 22:12 | XMS_ITS | Data Portability ---
Author Organization [facility] [employer], Main Office Address [address] [place] [address] Assessment No assessment recorded. Plan of Treatment Reminders Order Date Submit Date Provider Last Modified By Organization Details Last Modified Time Details Appointments Follow Up 30 2024 01:00P STEVEN Wright Not available Not available Not available Lab drug screen, urine 2024 025 [facility] ([facility] [address] [place], [address], 10/19/2024 19:57:02 rapid flu (A+B) 2024 025 [facility], [address] [place] [address], [id number], 08/09/2024 15:22:42 rapid strep group A, throat 2024 025 [facility], [address] [place] [address], [phone], 08/09/2024 15:23:01 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 Thank you. 2024 025 [facility], [address], [place], [address], 10/24/2024 09:16:38 gastroent erologist referral - Incontine nt of stool at night , watery stools , helped a little with dicyclomi ne . Please eval and treat . Thank you [address] [facility], [address], [place], [address], 11/08/2024 11:34:27 psychiatr ist referral - Please eval and treat. Please call patient to schedule an appointme nt. Thank you 2024 025 [facility], [address] [facility] [address], [place], [address], 09/15/2024 09:36:[address] referral - Feet really hurt , can you suggest something to help the Gabapenti n work better? Please call patient to schedule an appointme nt. Thank you 2024 025 [facility] [address] , [place], [address], 09/12/2024 16:10:46 Procedures None recorded. Surgeries None recorded. Imaging None recorded. Medication Orders duloxetin e 30 mg capsule,d elayed release [address] [facility] #[id number], [address], [place], [address], 10/10/2024 16:04:58 duloxetin e 60 mg capsule,d elayed release [address] [facility]acy #[id number], [address], [place], [address], 10/10/2024 16:04:58 aripipraz ole 20 mg tablet [address] [facility]armacy #[id number], [address], [place], [address], 09/06/2024 16:16:37 Mounjaro 2.5 mg/0.5 mL subcutane ous pen injector [address] [facility] #[id number], [address], [place], [address], 09/06/2024 16:21:13 Farxiga 10 mg tablet 2024 025 [id number] [address], [place], [address], 08/09/2024 14:59:41 promethaz ine-DM 6.25 mg-15 mg/5 mL oral syrup 2024 025 [id number], [address], [place], [address], 10/10/2024 14:20:30 ciproflox acin 500 mg tablet 2024 025 [id number], [address] [facility], [place], [address], 10/10/2024 14:19:47 Tamiflu 75 mg capsule 2024 025 [id number], [address] [facility], [place], [address], 10/10/2024 14:20:11 gabapenti n 600 mg tablet 2024 025 [id number] [address] [facility], [place], [address], 07/12/2024 14:26:06 pioglitaz one 15 mg tablet 2023 024 [id number] [address] , [place], [address], 05/17/2024 15:09:30 Depo-Medr ol 80 mg/mL suspensio n for injection 2023 024 [email or web address] Not available 05/17/2024 15:15:53 prednison e 20 mg tablet 2023 024 [email or web address] [id number], [address], [place], [address], 07/12/2024 14:11:31 Benadryl Allergy 25 mg tablet 2023 024 [id number], [address], [place], [address], 05/17/2024 15:05:54 Patient TargetsNo targets recorded. Patient Instructions Encounter Date Encounter Id Patient Instructions Last Modified By Organization Details Last Modified Time 05/17/2024 [id number] recheck BP here , free in 7 days [email or web address] Not available 05/30/2024 16:32:03 09/06/2024 [id number] counseled: no si/hi [email or web address] Not available 09/14/2024 11:22:28 Reason for Referral Neurologist Referral for Nimo ropathy Feet really hurt , can you suggest something to help the Gabapentin work better? Please call patient to schedule an appointment. Thank you Referring Physician: [facility], Encounter Date: 09/06/2024 Psychiatrist Referral for Bi polar disorder Please eval and treat. Please call patient to schedule an appointment. Thank you Referring Physician: [facility], Encounter Date: 09/06/2024 Breeding Technician Referral for Incontinence of feces Incontinent of stool at night , watery stools , helped a little with dicyclomine . Please eval and treat . 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 H e is wanting to be tested . Please eval a Please call patient to schedule an appointment. Thank you. Referring Physician: [facility], Encounter Date: 10/10/2024 Results Created Date Observation Date Name Description Value Unit Range Abnormal Flag Note LastModifiedBy Organization Detail LastModifiedTime 08/09/1908/09/2024 rapid strep group A, throa t STREP A negati ve Not Available [facility] [address] [facility], [place], [address], 08/09/2024 14:49:49 08/09/19 25 08/09/2024 rapid flu (A+B) Flu A positi ve Not Available [facility] [address] [facility], [place], [address], 08/09/2024 14:49:37 08/09/19 25 08/09/2024 rapid flu (A+B) Flu B negati ve Not Available [address], [place], [address], 08/09/2024 14:49:37 08/09/19 25 08/09/2024 hemog lobin A1C, finge rstic k HgbA1C 8.1 Not Available [address], [place], [address], 08/09/2024 14:31:28 06/19/20 24 06/19/2024 XR, chest , 1 view No observ ation record ed. [email or web address] [facility] [address] [place], [address], 06/21/2024 12:50:11 06/21/20 24 06/21/2024 US, abdom en No observ ation record ed. [email or web address] [place], [address], 06/21/2024 12:52:42 06/24/19 25 06/24/2024 myoca rdial oxyge n consu mptio n study (proc ) No observ ation record ed. [email or web address] [place], [address], 06/28/2024 17:37:35 07/05/19 25 07/05/2024 elect gloria diogr am No observ ation record ed. [email or web address] [facility] [address], [place], [address], 07/07/2024 08:13:06 07/07/1907/05/2024 XR, chest , 2 view No observ ation record ed. [email or web address] [facility] [address], [place], [address], 07/08/2024 12:12:18 07/15/19 25 07/15/2024 imagi ng/di agnos tic resul t No observ ation record ed. [facility] [address], [place], [address], 07/15/2024 14:55:07 Result Notes None recorded. Problems Name Problem SNOMED Code Status Onset Date Resolution Date Notes Provider Name and Address Organization Details Recorded Time Nocturia 831564072 Active Not Available [facility] 3 08:09:28 History of prostatism 657520863 Active Not Available [facility] 3 08:09:28 Tomography - chest abnormal 580499443 Active Not Available [facility] 3 08:09:28 Pneumonia 864974094 Active Not Available [facility] 3 08:09:28 Dyspnea 929217752 Active Not Available [facility] 3 08:09:28 Low back pain 159427212 Active Not Available [facility] 3 08:09:28 Chest pain 80253262 Active Not Available [facility] 3 08:09:28 Lung mass 385991965 Active Not Available [facility] 3 08:09:28 Depressive disorder 13905330 Active Not Available [facility] 3 08:09:29 Onychomycosis 535044510 Active Not Available [facility] 3 08:09:29 Anxiety 97584115 Active Not Available [facility] 3 08:09:29 Cough 78608148 Active Not Available [facility] 3 08:09:29 Upper respiratory infection 98881730 Active Not Available [facility] 3 08:09:29 Hyperlipidemi a 11854058 Active Not Available [facility] 3 08:09:29 Essential hypertension 38411849 Active Not Available [facility] 3 08:09:29 Costal chondritis 49364909 Active Not Available [facility] 3 08:09:29 Reduced libido 3463541 Active Not Available [facility] 3 08:09:29 Insomnia 350227728 Active 2022 STEVEN Ramirez [address], [place], [address] , [place] [employer] [facility] [employer] 3 16:46:36 Vitamin D deficiency 10386121 Active 2022 Ila Jerome MD [address], [address], [place], [address] , [employer] [place] [facility] [employer] 3 17:19:55 Uncontrolled type 2 diabetes mellitus 543871664 Active 2022 Ila Jerome MD [address], [address], [place], [address] , [employer] [place] [facility] [employer] 3 09:21:54 Diabetic peripheral neuropathy 047295127 Active 2022 Ila Jerome MD [address], [place], [address] , [employer] [facility] [employer] 3 09:26:12 Tinea cruris 254102545 Active 2022 Ila Jerome MD [address], [place], [address] , [employer] [place] [facility] [employer] 3 09:28:59 Herpes simplex 28152173 Active 2022 Ila Jerome MD [address], [place], [address] , [employer] [facility] 3 09:30:16 Neuropathy 255957440 Active 2022 STEVEN Ramirez [address], [place], [address] , [place] [facility] 3 10:44:28 Chronic tremor 447334632 Active 2022 STEVEN Ramirez [address], [place], [address] , [place] [facility] 3 10:48:14 Administratio n of influenza vaccine Active 2022 STEVEN Ramirez [address], [place], [address] , [place] [facility] 3 10:49:55 Administratio n of Varicella-zos ter vaccine for shingles Active 2022 STEVEN Ramirez [address], [place], [address] , [place] [facility] 3 11:26:56 Loose stool 238973956 Active 2023 STEVEN Ramirez [address], [place], [address] , [place] [facility] 4 10:30:05 Type 2 diabetes mellitus 97125376 Active 2023 STEVEN Ramirez [address], [place], [address] , [place] [facility] 4 16:03:39 Internal hemorrhoids 02471262 Active 2023 STEVEN Ramirez [address], [place], [address] , [facility] 4 16:05:12 Bite of insect Active 2023 STEVEN Ramirez [address], [place], [address] , [facility] 4 15:04:10 Sinusitis 77525275 Active 2024 STEVEN Ramirez [address], [place], [address] , [place] [facility] 5 14:46:56 Influenza 6825314 Active 2024 STEVEN Ramirez [address], [place], [address] , [facility] [employer] [facility] 5 14:56:01 Bipolar disorder 83699714 Active 2024 STEVEN Ramirez [address], [place], [address] , [facility] [employer] [facility] [employer] [facility] 5 16:15:39 Dental caries 26031410 Active 2024 STEVEN Ramirez [address], [place], [address] , [facility] [employer] [facility] [employer] [facility] 5 10:42:44 Incontinence of feces 44837351 Active 2024 STEVEN Ramirez [address], [place], [address] , [facility] [employer] [facility] [employer] [facility] 5 14:42:55 Family history of Allergy 771143137 Active 2024 STEVEN Ramirez [address], [place], [address] , [facility] [employer] [facility] [employer] [facility] 5 14:46:16 Problem Notes None recorded. Procedures Surgical History Date Name Laterality Status Provider Name and Address Organization Details Recorded Time Back Surgeries completed Nilam mathur RN [facility] [employer] [facility] 06/11/2023 10:38:34 Imaging Results None recorded. Procedure Notes None recorded. Medical Equipment None Reported. Allergies No known drug allergies Medications Name Sig Start Date Stop Date Status Note LastModified by Organization Details LastModified Time cyclobenz aprine 10 mg tablet TAKE 1 TABLET 3 TIMES A DAY BY ORAL ROUTE NEEDED. 08/27 completed Not Available Not Available Not Available pioglitaz one 15 mg tablet TAKE 1 TABLET BY MOUTH EVERY DAY IN THE MORNING active Not Available Not Available No t Available buspirone 5 mg tablet 11/03 completed Not Available Not Available Not Available metformin 500 mg tablet TAKE 2 TABLETS BY MOUTH TWICE A DAY BEFORE MEALS FOR 30 DAYS. 08/27 completed upset stomach, constant diarrhea Not Available Not Available Not Available promethaz ine-DM 6.25 mg-15 mg/5 mL oral syrup Take 5 mL every 4 hours by oral route as needed for 10 days. 10/10 completed Not Available Not Available Not Available venlafaxi ne ER 37.5 mg capsule,e xtended release 24 hr active Not Available Not Available Not Available venlafaxi ne ER 75 mg capsule,e xtended release 24 hr 2QAM AT 8 AM 11/22 completed Not Available Not Available Not Available gabapenti n 600 mg tablet TAKE 1 TABLET BY MOUTH THREE TIMES A DAY active Not Available Not Available No t Available atorvasta tin 20 mg tablet TAKE 1 TABLET BY MOUTH EVERY DAY active Not Available Not Available No t Available ropinirol e 1 mg tablet TAKE 1 TABLET BY MOUTH EVERYDAY AT BEDTIME active Not Available Not Available No t Available azithromy guicho 250 mg tablet TAKE 2 TABLETS BY MOUTH TODAY, THEN TAKE 1 TABLET DAILY FOR 4 DAYS 06/25 completed Not Available Not Available Not Available alprazola m 1 mg tablet TAKE 1 TABLET BY MOUTH TWO TIMES A DAY NEEDED * WANTS YOU TO CUT BACK A LITTLE MORE* active Not Available Not Available No t Available benzonata te 200 mg capsule Take 1 capsule 3 times a day by oral route. active Not Available Not Available No t Available valacyclo vir 1 gram tablet Take 1 tablet every 12 hours by oral route for 7 days. active Not Available Not Available No t Available hydrocodo ne 5 mg-acetam inophen 325 mg tablet TAKE 1 TO 2 TABLETS BY MOUTH EVERY 4 TO 6 HOURS NEEDED 11/03 completed Not Available Not Available Not Available meloxicam 15 mg tablet active Not Available Not Available Not Available lisinopri l 20 mg tablet active Not Available Not Available Not Available Medrol (Jacek) 4 mg tablets in a dose pack Use as directed active Not Available Not Available No t Available prednison e 20 mg tablet Take 2 tabs PO twice daily for 2 days; 1 tab PO twice daily for 5 days; 1/2 tab PO twice daily for 2 days; 1/2 tab PO once for 1 day. TAKE 2ND DOSE EVERYDAY AT NOON-10 DAY COURSE 07/12 completed Not Available Not Available Not Available propranol ol ER 60 mg capsule,2 4 hr,extend ed release TAKE 1 CAPSULE BY MOUTH EVERY DAY active Not Available Not Available No t Available Viagra 50 mg tablet Take 1 tablet as needed by oral route as directed . 2012 active Not Available Not Available Not Avai lable gabapenti n 400 mg capsule TAKE 1 CAPSULE BY MOUTH THREE TIMES A DAY 08/27 completed Not Available Not Available Not Available clonazepa m 1 mg tablet TAKE 1 TABLET BY MOUTH THREE TIMES A DAY NEEDED active Not Available Not Available No t Available moxifloxa guicho 400 mg tablet active Not Available Not Available No t Available permethri n 5 % topical cream APPLY (THOROUG HLY MASSAGE INTO SKIN FROM HEAD TO SOLES OF FEET) BY TOPICAL ROUTE ONCE LEAVE ON FOR 8-14 HR, THEN REMOVE BY THOROUGH WASHING active Not Available Not Available No t Available venlafaxi ne ER 150 mg capsule,e xtended release 24 hr TAKE 1 CAPSULE BY MOUTH EVERY DAY IN THE MORNING active Not Available Not Available No t Available amlodipin e 5 mg tablet TAKE 1 TABLET BY MOUTH EVERY DAY 10/15 completed increase d to 10 mg Not Available Not Available Not Available allopurin ol 100 mg tablet TAKE 1 TABLET BY MOUTH EVERY DAY FOR 90 DAYS active Not Available Not Available No t Available ciproflox acin 500 mg tablet TAKE 1 TABLET BY MOUTH EVERY 12 HOURS FOR 10 DAYS 10/10 completed Not Available Not Available Not Available hydrocodo ne 10 mg-acetam inophen 325 mg tablet Take 1-2 TABLET EVERY 4 HOURS by oral route prn. 07/23 completed Not Available Not Available Not Available aspirin 81 mg tablet,de layed release active Not Available Not Available Not Available triamcino lone acetonide 0.1 % topical cream APPLY A THIN LAYER TO THE AFFECTED AREA(S) BY TOPICAL ROUTE 2 TIMES PER DAY active Not Available Not Available No t Available carvedilo l 3.125 mg tablet TAKE 1 TABLET BY MOUTH EVERY 12 HOURS 07/12 completed Not Available Not Available Not Available Depo-Medr ol 80 mg/mL suspensio n for injection Take 1 mL by injectio n route. 2023 active Not Available Not Available Not Avai lable hydrocort isone 2.5 % topical cream with perineal applicato r APPLY A THIN LAYER TO THE AFFECTED AREA(S) BY TOPICAL ROUTE 2-4 TIMES DAILY active Not Available Not Available No t Available terbinafi ne HCl 250 mg tablet TAKE ONE TABLET BY MOUTH EVERY DAY FOR 12 WEEKS 11/29 completed Not Available Not Available Not Available alprazola m 0.5 mg tablet active Not Available Not Available Not Available nitroglyc sid 0.4 mg/hr transderm al 24 hour patch APPLY 1 PATCH TO SKIN ONCE A DAY IN THE MORNING AND REMOVE BEFORE GOING TO BED AT NIGHT active Not Available Not Available No t Available dicyclomi ne 20 mg tablet TAKE 1 TABLET BY MOUTH THREE TIMES A DAY 30 MINUTES BEFORE FOOD NEEDED FOR 30 DAYS active Not Available Not Available No t Available amlodipin e 10 mg tablet TAKE 1 TABLET BY MOUTH EVERY DAY IN THE MORNING active Not Available Not Available No t Available oseltamiv ir 75 mg capsule TAKE 1 CAPSULE BY MOUTH TWICE A DAY FOR 5 DAYS 10/10 completed Not Available Not Available Not Available buspirone 10 mg tablet TAKE 1 TABLET BY MOUTH THREE TIMES A DAY WITH MEALS 11/29 completed Not Available Not Available Not Available clotrimaz ole-betam ethasone 1 %-0.05 % topical cream APPLY TO THE AFFECTED AND SURROUND ING AREAS OF SKIN BY TOPICAL ROUTE 2 TIMES PER DAY IN THE MORNING AND EVENING FOR 2 WEEKS active Not Available Not Available No t Available nicotine 21 mg/24 hr daily transderm al patch 06/25 completed Not Available Not Available Not Available nitroglyc sid 0.4 mg sublingua l tablet active Not Available Not Available Not Available gabapenti n 300 mg capsule TAKE 1 CAPSULE BY MOUTH THREE TIMES A DAY 06/11 completed Not Available Not Available Not Available Banophen 25 mg capsule TAKE 1 CAPSULE BY MOUTH EVERYDAY AT BEDTIME active Not Available Not Available No t Available hydrocodo ne 5 mg-acetam inophen 500 mg tablet 1-2 tabs every 4-6 hours as needed active Not Available Not Available No t Available zolpidem 5 mg tablet TAKE 1 TABLET BY MOUTH EVERY DAY *ONLY NEEDED active Not Available Not Available No t Available Levaquin 500 mg tablet Take 1 tablet every 24 hours by oral route. 03/12 completed Not Available Not Available Not Available ergocalci ferol (vitamin D2) 1,250 mcg (50,000 unit) capsule TAKE 1 CAPSULE BY MOUTH ONE TIME PER WEEK FOR 90 DAYS active Not Available Not Available No t Available lisinopri l 40 mg tablet TAKE 1 TABLET BY MOUTH EVERY DAY active Not Available Not Available No t Available ondansetr on 4 mg disintegr ating tablet 06/25 completed Not Available Not Available Not Available metformin ER 500 mg tablet,ex tended release 24 hr TAKE 1 TABLET BY MOUTH EVERY DAY AT DINNER FOR 30 DAYS active Not Available Not Available No t Available dicyclomi ne 10 mg capsule Take 1 capsule 3 times a day by oral route before meal(s) for 30 days, for loose stools. 04/19 completed Not Available Not Available Not Available calcitrio l 0.25 mcg capsule TAKE 1 CAPSULE BY MOUTH EVERY DAY FOR 90 DAYS active Not Available Not Available No t Available amoxicill in 875 mg-potass ium clavulana te 125 mg tablet TAKE 1 TABLET BY MOUTH EVERY 12 HOURS FOR 10 DAYS 10/10 completed Not Available Not Available Not Available Benadryl Allergy 25 mg tablet Take 1 tablet every day by oral route at bedtime for 30 days. 2023 active Not Available Not Available Not Avai lable aripipraz ole 10 mg tablet 11/29 completed Not Available Not Available Not Available aripipraz ole 15 mg tablet TAKE 1 TABLET BY MOUTH EVERYDAY AT BEDTIME active Not Available Not Available No t Available aripipraz ole 20 mg tablet TAKE 1 TABLET BY MOUTH EVERY DAY AT BEDTIME FOR 30 DAYS active Not Available Not Available No t Available aripipraz ole 5 mg tablet 1 po daily 11/29 completed Not Available Not Available Not Available Crestor 10 mg tablet active Not Available Not Available Not Available bupropion HCl XL 300 mg 24 hr tablet, extended release active Not Available Not Available Not Available metoprolo l tartrate 25 mg tablet 07/12 completed Not Available Not Available Not Available duloxetin e 30 mg capsule,d elayed release TAKE 1 CAPSULE BY MOUTH EVERY DAY IN THE MORNING FOR 7 DAYS active Not Available Not Available No t Available duloxetin e 60 mg capsule,d elayed release TAKE 1 CAPSULE BY MOUTH EVERY DAY IN THE MORNING active Not Available Not Available No t Available Vesicare 5 mg tablet Take 1 tablet every day by oral route for 28 days. 03/17 completed Not Available Not Available Not Available fenofibra te 160 mg tablet 1 po daily active Not Available Not Available No t Available Effexor XR 2012 active Not Available Not Available Not Avai lable lisinopri l 2012 active Not Available Not Available Not Avai lable BD Ultra-Fin e Short Pen Needle 31 gauge x 5/16 USE TO INJECT INSULIN TWICE A DAY active Not Available Not Available No t Available Abilify 2 mg tablet Take 1 tablet every day by oral route. active Not Available Not Available No t Available fenofibra te nanocryst allized 145 mg tablet TAKE ONE TABLET BY MOUTH EVERY DAY active Not Available Not Available No t Available Januvia 100 mg tablet TAKE 1 TABLET BY MOUTH EVERY DAY IN THE MORNING active Not Available Not Available No t Available Mucinex DM 60 mg-1,200 mg tablet,ex tended release 12 hr 11/29 completed Not Available Not Available Not Available melatonin 5 mg tablet TAKE 1 TABLET BY MOUTH AT BEDTIME 02/28 completed Not Available Not Available Not Available venlafaxi ne ER 150 mg tablet,ex tended release 24 hr TAKE ONE TABLET BY MOUTH ONE TIME DAILY 11/29 completed Not Available Not Available Not Available amlodipin e besylate (bulk) 100 % powder 2012 active Not Available Not Available Not Avai lable AndroGel 20.25 mg/1.25 gram per pump act. (1.62 %) transderm al gel APPLY 2 PUMPS EVERY MORNING DIRECTED 11/29 completed Not Available Not Available Not Available OneTouch Verio test strips active Not Available Not Available Not Available Myrbetriq 50 mg tablet,ex tended release Take 1 tablet every day by oral route. 11/29 completed Not Available Not Available Not Available testoster one 1.62 % (40.5 mg/2.5 gram) transderm al gel packet apply 1 packet to the affected area(s) on the skin once daily 06/25 completed Not Available Not Available Not Available Farxiga 10 mg tablet TAKE 1 TABLET BY MOUTH EVERY DAY IN THE MORNING active Not Available Not Available No t Available Fluvirin 1467-1048 45 mcg (15 mcg x 3)/0.5 mL intramusc ular suspensio n active Not Available Not Available Not Available Basaglar KwikPen U-100 Insulin 100 unit/mL (3 mL) subcutane ous INJECT 25 UNITS UNDER THE SKIN TWICE DAILY 09/06 completed switched to [email or web address] Not Available Not Available Not Available Fluzone Quad 5547-0186 60 mcg (15 mcg x 4)/0.5 mL IM suspensio n 11/03 completed Not Available Not Available Not Available FreeStyle Rogers 14 Day [place] USE DIRECTED . 03/12 completed Not Available Not Available Not Available FreeStyle Rogers 14 Day Sensor kit USE DIRECTED . 03/12 completed Not Available Not Available Not Available OneTouch Delica Plus Lancet 33 gauge active Not Available Not Available Not Available insulin glargine- yfgn (U-100) 100 unit/mL (3 mL) subcutane ous pen INJECT 35 UNITS UNDER THE SKIN TWICE DAILY 09/06 completed switched to mounjaro Not Available Not Available Not Available Mounjaro 2.5 mg/0.5 mL subcutane ous pen injector Inject 2.5 mg every week by subcutan eous route for 30 days. 2024 active Not Available Not Available Not Avai lable Vitals Date Recorded Body height Body mass index (BMI) Body weight Body temperature Oxygen saturation Oxygen saturation in Arterial blood by Pulse oximetry Heart rate Systolic blood pressure Diastolic blood pressure Provider Name and Address Organization Details Last Updated DateTime 5 182.88 cm 29.8 kg/m2 65382.6 g 97.2 [degF] 98 % 98 % 70 /min 132 mm[Hg] 86 mm[Hg] GEORGE Bergman [facility] [employer] [facility] 5 14:14:15 Date Recorded Body height Body mass index (BMI) Body weight Body temperature Oxygen saturation Oxygen saturation in Arterial blood by Pulse oximetry Heart rate Systolic blood pressure Diastolic blood pressure Provider Name and Address Organization Details Last Updated DateTime 5 182.88 cm 29.4 kg/m2 59597.1 9 g 98.1 [degF] 96 % 96 % 99 /min 138 mm[Hg] 88 mm[Hg] Umm Valladares RN [facility] [employer] [facility] 5 14:31:45 Date Recorded Body height Body mass index (BMI) Body weight Oxygen saturation Oxygen saturation in Arterial blood by Pulse oximetry Respiratory rate Heart rate Body temperature Systolic blood pressure Diastolic blood pressure Provider Name and Address Organization Details Last Updated DateTime 5 182.88 cm 30 kg/m2 057415. 91 g 96 % 96 % 21 /min 87 /min 97.3 [degF] 112 mm[Hg] 68 mm[Hg] Carolaamado Reza CNA [place] [employer] [facility] [employer] [facility] 5 16:00:36 Date Recorded Body height Body mass index (BMI) Body weight Body temperature Systolic blood pressure Diastolic blood pressure Provider Name and Address Organization Details Last Updated DateTime 5 182.88 cm 29.4 kg/m2 05534.5 4 g 98.5 [degF] 112 mm[Hg] 74 mm[Hg] Shanaejimmy Glynn, [facility] [employer] [facility] 5 14:22:28 Date Recorded Body height Body mass index (BMI) Body weight Body temperature Heart rate Oxygen saturation Oxygen saturation in Arterial blood by Pulse oximetry Systolic blood pressure Diastolic blood pressure Provider Name and Address Organization Details Last Updated DateTime 4 182.88 cm 29.3 kg/m2 41825.9 5 g 98.1 [degF] 94 /min 98 % 98 % 146 mm[Hg] 92 mm[Hg] Deja Bates RN [facility] [employer] 4 14:51:53 Social History Question Answer Notes LastModified by Organizat ion Details LastModified Time Tobacco Smoking Status Never Smoker Nilam Soriano RN [facility], [place] [employer] [facility] [employer] 06/11/2023 10:36:35 In The 14 Days Before Symptom Onset, Have You Had Close Contact With A Laboratory-confi rmed COVID-19 While That Case Was Ill? No [email or web address] Information not available 06/11/2023 In The 14 Days Before Symptom Onset, Have You Had Close Contact With A Person Who Is Under Investigation For COVID-19 While That Person Was Ill? No [email or web address] Information not available 06/11/2023 What Type Of Diet Are You Following? REGULAR [email or web address] Information not available 06/11/2023 What Is The Highest Grade Or Level Of School You Have Completed Or The Highest Degree You Have Received? [id number] [email or web address] Information not available 06/11/2023 Have There Been Any Changes To Your Family Or Social Situation? Yes Divorce [email or web address] Information not available 06/11/2023 Where Do You Live? SingleLevelHouse [email or web address] Information not available 06/11/2023 Do You Have Any Pets? No [email or web address] Information not available 06/11/2023 What Is Your Relationship Status? [email or web address] Information not available 06/11/2023 Do You Have Smoke And Carbon Monoxide Detectors In Your Home? Yes [email or web address] Information not available 06/11/2023 Are You Passively Exposed To Smoke? No [email or web address] Information not available 06/11/2023 Are There Any Smokers In Your House? No Information not available 06/11/2023 Do You Use Sunscreen Routinely? Yes [email or web address] Information not available 06/11/2023 Have You Recently Traveled Abroad? No [email or web address] Information not available 06/11/2023 Sex: Unknown Functional Status Question Answer Note LastModified by Organizat ion Details LastModified Time Do you use any illicit or recreational drugs? No [email or web address] Information not available 06/11/2023 What is your level of alcohol consumption? None [email or web address] Information not available 06/11/2023 Mental Status None recorded. Family History Relationship Description Onset Age of this Age Resolved Age Notes LastModified by Organization Details LastModified Time Mother Hypertensive disorder [email or web address] Not available 2022 10:36:10 Mother Diabetes mellitus [email or web address] Not available 2022 10:36:23 Father Hypertensive disorder Not available 2022 10:36:10 Medical History No medical history recorded. Immunizations Vaccine Type Date Status Note Provider Nam e and Address Organization Details Recorded Time Influenza, split virus, quadrivalent, PF 06/11/2023 completed STEVEN Ramirez [address], [place], [address], [facility] [employer] [facility] [employer] [facility] 06/21/2023 15:10:39 zoster recombinant 06/11/2023 completed STEVEN Ramirez [address], [place], [address], [facility] [employer] [facility] 06/21/2023 15:10:39 zoster recombinant 08/12/2023 completed STEVEN Ramirez [address], [address], [facility] 08/19/2023 16:53:07 Past Encounters Encounter ID Performer Location Encounter Start Date Encounter Closed Date Diagnosis/Indication Diagnosis SNOMED-CT Code Diagnosis ICD10 Code Diagnosis Note [id number] Ila Jerome MD [facility] [address] [place] [address] 03/12/2021 00:00:00 03/12/2021 14:44:40 [id number] Ila Jerome MD [facility] [address] [place] [address] 03/26/2021 00:00:00 03/27/2021 06:35:33 [id number] Ila Jerome MD [facility] [place] [address] [place] [address] 01/22/2022 00:00:00 01/22/2022 10:23:01 [id number] Ila Jerome MD [facility] [address] [place] [address] 03/19/2022 00:00:00 03/19/2022 13:05:04 [id number] Ila Jerome MD [facility] [place] [address] [address] [place] [address] 06/25/2022 00:00:00 06/25/2022 10:13:58 [id number] Ila Jerome MD [facility] [address] [place] [address] 01/16/2023 09:03:00 01/16/2023 09:34:47 Uncontrolled type 2 diabetes mellitus 278670482 E11.65 A1C 10.1 % need to increase lantus to 35 units Twice a day. F/u in 3 months Diabetic p eripheral neuropathy 105505786 E11.40 Will increase to 400mg of gabapentin TID Tinea cruris 535720680 B 35.6 Herpes simplex 81728445 B00.9 [id number] Ila Jerome MD [facility] [address] [place] [address] [place] [address] [place] [address] 06/11/2023 10:26:14 06/11/2023 11:34:02 Neuropathy 579962136 G62.9 Uncontroll ed type 2 diabetes mellitus 145191002 E11.65 Chronic tremor 369189921 R25.1 Administra tion of influenza vaccine 95306884 Z23 Administra tion of viral vaccine 59619272 Z23 [id number] Ila Jerome MD [facility] De[address] osborne [address] [place] [address] [place] [address] 08/12/2023 10:18:50 08/20/2023 13:47:07 Active or passive immunization 216045094 Z23 [id number] Ila Jerome MD [facility] De[address] osborne [address] [place] [address] [place] [address] 08/28/2023 10:13:58 08/28/2023 10:36:58 Uncontrolled type 2 diabetes mellitus 973628967 E11.65 Anxiety 01256982 F41.9 Depressive disorder 3548 9007 F32.A Diabetic p eripheral neuropathy 881050924 E11.40 Essential hypertension 53728180 I10 Hyperlipidemia 87915823 E78.5 Insomnia 357092911 G47.0 0 Low back pain 338534273 M54.50 Neuropathy 381016855 G62 .9 Vitamin D deficiency 347 77741 E55.9 [id number] Errol Schultz MD [facility] [address] [place] [address] [place] [address] 10/16/2023 10:05:08 10/16/2023 10:36:46 Essential hypertension 53969557 I10 Hyperlipidemia 32313096 E78.5 Uncontroll ed type 2 diabetes mellitus 766256359 E11.65 Neuropathy 234870134 G62 .9 Loose stool 293957809 R1 9.5 Chronic tremor 933613524 R25.1 Depressive disorder 3548 9007 F32.A Diabetic p eripheral neuropathy 456015666 E11.40 Insomnia 338987137 G47.0 0 Low back pain 320751447 M54.50 Vitamin D deficiency 347 87413 E55.9 [id number] Errol Schultz MD [facility] Deandre osborne [facility] [place] [address] 01/18/2024 15:55:14 01/18/2024 16:43:08 Essential hypertension 62632414 I10 Uncontroll ed type 2 diabetes mellitus 782884757 E11.65 Loose stool 814927241 R1 9.5 Anxiety 35044995 F41.9 Chronic tremor 946532164 R25.1 Costal chondritis 463956 04 M94.0 Depressive disorder 3548 9007 F32.A Diabetic p eripheral neuropathy 030808253 E11.40 Hyperlipidemia 15241568 E78.5 Insomnia 254196263 G47.0 0 Low back pain 244412303 M54.50 Vitamin D deficiency 347 22588 E55.9 Onychomycosis 992171471 B35.1 [id number] Errol Schultz MD [facility] Deandre osborne [facility] [place] [place] [address] 04/19/2024 15:32:35 04/19/2024 16:09:55 Anxiety 54964932 F41.9 Type 2 thong betes mellitus 24976391 E11.9 Loose stool 732356537 R1 9.5 Internal hemorrhoids 904 42206 K64.8 Neuropathy 801797665 G62 .9 Vitamin D deficiency 347 98190 E55.9 Essential hypertension 96304789 I10 Hyperlipidemia 86686058 E78.5 [id number] Errol Schultz MD [facility] De[address]re osborne [address] [place] [address] [place] [address] 05/17/2024 14:46:56 05/17/2024 15:14:44 Bite of insect 349597143 W57.XXXA Type 2 thong betes mellitus 87832320 E11.9 Essential hypertension 06723418 I10 [id number] Errol Schultz MD [address] [address] 07/12/2024 13:56:55 07/12/2024 14:31:49 Neuropathy 253867083 G62.9 Anxiety 75942372 F41.9 Depressive disorder 3548 9007 F32.A Diabetic p eripheral neuropathy 625291301 E11.40 Essential hypertension 81871944 I10 Hyperlipidemia 70963740 E78.5 Insomnia 081642913 G47.0 0 Low back pain 310572128 M54.50 Type 2 thong betes mellitus 41962228 E11.9 Vitamin D deficiency 347 26768 E55.9 [id number] Errol Schultz MD [address] [address] 08/09/2024 14:22:29 08/09/2024 14:58:18 Type 2 diabetes mellitus 50531264 E11.9 Vitamin D deficiency 347 05145 E55.9 Neuropathy 416290424 G62 .9 Essential hypertension 11611179 I10 Hyperlipidemia 52383627 E78.5 Sinusitis 96790530 J32.9 Upper resp iratory infection 09929269 J06.9 Influenza 9659906 J11.1 [id number] Errol Schultz MD [address] [address] 09/06/2024 15:47:22 09/15/2024 14:52:37 Neuropathy 952686955 G62.9 Vitamin D deficiency 347 00055 E55.9 Type 2 thong betes mellitus 17831527 E11.9 Bipolar disorder 6893761 4 F31.9 [id number] Errol Schultz MD [address] [address] 10/10/2024 14:11:54 10/10/2024 14:58:32 Essential hypertension 46406858 I10 Incontinence of feces 72 684433 R15.9 Family his tory of Allergy 456556804 Z84.89 Anxiety 73544992 F41.9 Long-term current use of benzodiazepine 8435921669 1858735 Z79.899 Diabetic p eripheral neuropathy 201282353 E11.40 Bipolar disorder 0355332 4 F31.9 Chronic tremor 863363771 R25.1 Depressive disorder 3548 9007 F32.A Hyperlipidemia 21165376 E78.5 Insomnia 462414387 G47.0 0 Loose stool 851208420 R1 9.5 Type 2 thong betes mellitus 21070144 E11.9 Vitamin D deficiency 347 92025 E55.9 [id number] Delmi Randall, [facility] [address] [address] 10/26/2024 14:15:44 10/26/2024 17:19:41 Health Concerns Section Related Observation LastModified by Organization Detai ls LastModified Time None Recorded Concern Status LastModified by Organization Details LastModified Time None Recorded Advance Directives Directive None Recorded Payers Encounter Date Sequence Insurance Name Policy Number Policy Dill Covered Member ID Dill Member ID Guarantor Name 05/17/2024 1 [place] [id number] Fred Lozada [id number] Fred Lozada 05/17/2024 2 [place] 106 Farida Lozada [id number] Fred Lozada 07/12/2024 1 [place] [employer] [place] [id number] Fred Lozada [id number] Fred Lozada 07/12/2024 2 [place] 106 Farida Lozada [id number] Fred Lozada 08/09/2024 1 [place] [employer] [place] [id number] Fred Lozada [id number] Fred Lozada 08/09/2024 2 [place] 106 Farida Lozada [id number] Fred Lozada 09/06/2024 1 [place] [employer] [place] [id number] Fred Lozada [id number] Fred Lozada 10/10/2024 1 [place] [id number] Fred Lozada [id number] Fred Lozada Notes Date Note Type Note Provider Name and Address Organization Details Recorded Time 05/17/2024 text/html insect bite righ t wrist , itchy STEVEN Ramirez [address], [place], [address], [employer] 05/30/2024 16:32:43 07/12/2024 text/html some chest pains , ED , at [place] .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 on 81 mg aspirin STEVEN Ramirez [address], [place], [address], [employer] [facility] [employer] 07/15/2024 20:35:54 08/09/2024 text/html some pressure , in chest . they were going to place a stent , but kidney function off . grandkids sick . influenza . he feels something is coming on . doing a 24 hour urine for kidney doctor . no fever . some sore throat , feels glands are enlarged in neck STEVEN Ramirez [address], [place], [address], [employer] 08/12/2024 16:32:02 09/06/2024 text/html feet still hurt. hard to walk across parking lot , stopped insulin , tired of it STEVEN Ramirez [address], [place], [address], [employer] 09/14/2024 11:22:40 10/10/2024 text/html feet hurt all th e time , very sensitive to touch . STEVEN Ramirez [address], [place], [address], [employer] [facility] [employer] 10/22/2024 10:34:53
--- OUTSIDE RECORDS SUMMARY | 2024-11-30 22:12 | XMS_ITS | Clinical Summary ---
Author Organization [facility] al Address [address] [place] [address] Care Team Providers Care Baton Teacher Name Role Phone Ila Jerome MD Primary Care Provider [phone] Allergies No known active allergies Medications ALPRAZolam [...] depressive disorder 12/14/2017 Hyperlipidemia 12/14/2017 Leukocytosis 11/30/2017 Encounters Date Type Department Care Team Description 09/13/2024 Telephone [facility] [address] [facility] [address] [place] [address] Jovon Beckett MD from Last 3 Months Surgical History Surgery Date Site/Laterality Comments BACK SURGERY Medical History Medical History Date Comments Hypertension Hypercholesteremia Depression Osteoarthritis involving multiple joints on both sides of body Abnormal stress test Family History Medical History Relation Name Comments Prostate cancer Father Relation Name Status Comments Father Social History Tobacco Use Types Packs/Day Years Used Date Smoking Tobacco: Never Smokeless Tobacco: Never Alcohol Use Standard Drinks/Week Comments Not Currently 2 (1 standard drink = 0.6 oz pur e alcohol) Sex and Gender Information Value Date Recorded Sex Assigned at Not on file 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 Gender Identity Not on file Sexual Orientation Not on file 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 Not on file Not on file Not on file Obstetrics History Last Filed Vital Signs Vital Sign Reading [...] 12/14/2017 9:23 AM CDT Plan of Treatment Health Maintenance Due Date Last Done Comments Colon Cancer Screening-Colonoscopy 1965 Depression Screening 1965 Hepatitis C Screening 1967 Prostate Cancer Screening-PSA 1967 DTaP/Tdap/Td Vaccine (1 - Tdap) 1978 Hepatitis B Screening 1985 Regular Well Visit/Exam 18-64 1985 Influenza Vaccine (Season Ended) 2025 06/11/2023, 04/23/2017 Zoster Vaccine Completed 08/12/2023, 06/11/2023 Pneumococcal vaccine <65 Aged Out No longer eligible based on patient's age to complete this topic Insurance ANTHEM PREFERRED IDPA IDPA IDPA Care Teams Baton Teacher Relationship Specialty Start Date End Date Ila Jerome MD [facility] [place] [address] PCP - General Family Medicine 11/30/17
--- OUTSIDE RECORDS SUMMARY | 2024-11-30 22:12 | XMS_ITS ---
Author Organization [facility] Address [address] [address] [place] [address] Care Team Providers Care Grade Tamper Name Role Phone Micheal Diamond Unavailable [phone] Social History Sex Assigned At : Social History Observation Description Sex Assigned At Male Problems Problem Type SNOMED Code ICD Code Onset Dates Problem Status W/U Status Risk Notes Problem Acidosis (disorder) (12928306) Acidosis, unspecified (E87.20) Active confirmed Problem Chest pain (42245426) Chest pain, unspecified (R07.9) Active confirmed Encounters Encounter Location Date Provider Diagnosis [facility] [address] [facility] [address] [place] [address] 09/07/2024 Micheal Diamond Chronic kidney disea se, stage 3b N18.32 ; CAD (coronary artery disease) I25.10 ; Hyperlipidemia, unspecified E78.5 ; Renal osteodystrophy N25.0 ; Nicotine dependence, unspecified, uncomplicated F17.200 ; Acidosis, unspecified E87.20 and Chest pain, unspecified R07.9 Assessments Encounter Date Diagnosis (ICD Code) Assessment Notes Treatment Notes Treatment Clinical Notes Section Notes 09/07/2024 Chronic kidney disease, stage 3b (ICD-10 - N18.32) 09/07/2024 CAD (coronary artery disease) (ICD-10 - I25.10) 09/07/2024 Hyperlipidemia, unspecified (ICD-10 - E78.5) 09/07/2024 Renal osteodystrophy (ICD-10 - N25.0) 09/07/2024 Nicotine dependence, unspecified, uncomplicated (ICD-10 - F17.200) 09/07/2024 Acidosis, unspecified (ICD-10 - E87.20) 09/07/2024 Chest pain, unspecified (ICD-10 - R07.9) Plan Of Treatment Next Appt Details Provider Name:Micheal Diamond , 12/07/2024 03:15:00 PM, [address] [facility] [address], [place], [address], Progress Notes * Fred LOZADADOB:1965 ( 59 yo M)Acc No.[id number]:09/07/2024 Progress Notes Patient: Fred FOSTER Provider: William ANDREA MD, Blake.Abad.C.P, F.A.S.N. :1965 A ge:59 Y S ex:Male Date:09/07/2024 Address:[address] [place] [address] Subjective: * Chief Complaints: * * Medical History: Objective: * Vitals: Assessment: * Assessment: 1. C hronic kidney disease, stage 3b - N18.32 (Primary) 2 . C AD (coronary artery disease) - I25.10 3 . H yperlipidemia, unspecified - E78.5 ?4. R enal osteodystrophy - N25.0 5 . N icotine dependence, unspecified, uncomplicated - F17.200 6 . A cidosis, unspecified - E87.20 7 .?Chest pain, unspecified - R07.9 Plan: * Treatment: * Billing Information: * Visit Code: 45773 Office Visit, Est Pt., Level 4. * Procedure Codes: * Electronic signature of Crispin Diamond MD on 11/30/2024 at 10:11 PM CDT Sign off status: Pending * Provider: William ANDREA MD, F.Abad.C.P, F.A.S.N. Date: 0 09/07/2024 Generated for Printing/Faxing/eTransmitting on: 0 11/30/2024 10:11 PM CDT
[2024-11-30 22:50] VITALS: BP 145/88; PULSE 86; RESP 17; O2SAT 98
[2024-11-30 23:19] LABS: Basophils Absolute Auto 0.1 K/mm3 (0.0-0.1); Basophils Percent Auto 0.5 % (0.2-1.2); Eosinophils Absolute Auto 0.3 K/mm3 (0-0.3); Eosinophils Percent Auto 2.2 % (0-4.4); Hematocrit 38.7 % (42.0-52.0); Hemoglobin 12.4 g/dL (14.0-18.0); Immature Granulocyte Absolute 0.05 K/mm3 (0.00-0.031); Immature Granulocyte Percent A 0.4 % (0-0.5); Lymphocytes Absolute Auto 2.66 K/mm3 (0.9-3.2); Lymphocytes Percent Auto 20.3 % (18.3-44.2); Mean Corpuscular Hemoglobin 29.1 pg (26-34); Mean Corpuscular Volume 90.8 fl (80-100); Mean Platelet Volume 10.4 fl (7.4-10.4); Monocytes Absolute Auto 1.1 K/mm3 (0.1-0.6); Monocytes Percent Auto 8.1 % (2.6-8.5); Neutrophils Percent Auto 68.5 % (45.5-73.1); Platelet Count Result 247 k/mm3 (150-375); Red Blood Count 4.26 M/mm3 (4.6-6.20); Red Cell Distribution Width 14.3 % (11.5-14.5); White Blood Count 13.1 K/mm3 (4.5-10.0)
[2024-11-30 23:26] LABS: Alanine Aminotransferase 31 U/L (6-50); Albumin Level 4.3 g/dL (3.5-5.1); Alkaline Phosphatase 99 U/L (38-126); Anion Gap 9 mmol/L (4-12); Aspartate Amino Transferase 26 U/L (17-59); Bilirubin,Total 0.3 mg/dL (0.2-1.3); Blood Urea Nitrogen 29 mg/dL (9-20); Calcium 10.3 mg/dL (8.4-10.2); Carbon Dioxide 26 mmol/L (22-30); Chloride 103 mmol/L (98-107); Estimated CRCL calculation 36 ml/min; Estimated Glomerular Filt Rate 30; Glucose 174 mg/dL (65-110); Lipase 131 U/L (23-300); Potassium 3.7 mmol/L (3.4-5.0); Sodium 138 mmol/L (137-145); Total Protein 7.4 g/dL (6.3-8.2)
[2024-12-01] VITALS (8 sets, daily range): BP systolic 107–142; BP diastolic 71–87; PULSE 78–105; RESP 14–20; TEMP 36.6–37; O2SAT 95–99; BMI 29.4
--- OUTSIDE RECORDS SUMMARY | 2024-12-01 00:35 | XMS_ITS | Encounter Summary ---
Author Organization [facility] Address 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 Clinical History: Lumbar disc displacement. Findings: A portable crosstable lateral radiograph obtained in the operating room demonstrates surgical instruments posterior to L5-S1. . Dictated by: RADHA WASHINGTON 11/25/2007 11:15 Electronically signed by: RADHA WASHINGTON 11/25/2007 13:32 Transcribed: 11/25/2007 13:25 LE Procedure Note Radha Washington MD - 11/25/2007 [facility] [address], [place] [address] Admit Date: 11/25/2007 BHAVIK LOZADA Sex: M Admit Prov: ANDREW ZHONG Date: 1965 Primary Care Prov: CMRN: [id number] Room: [place] [address] SSN: [id number] IMAGING SERVICES Ordering Prov: N/A Interpretation LUMBAR [...] 7:08 AM CDT) ABO/RH TYPE O Negative [facility] SPECIMEN LIFE 3 days from drawdate [facility] HISTORY CHECK History Checked [facility] ANTIBODY SCREEN Negative [facility] Blood specimen (specimen) 11/25/2007 7:08 AM CDT Andrew Zhong MD BLOOD BANK ORDERABLES Edited [facility] CLIA# [id number] [address] [place] [address] documented in this encounter Visit Diagnoses Diagnosis Displacement of intervertebral disc, site unspecified, without myelopathy documented in this encounter
--- OUTSIDE RECORDS SUMMARY | 2024-12-01 00:35 | XMS_ITS | Encounter Summary ---
Author Organization [facility] Address [address] [place] [address] Care Team Providers Care Asbestos Textile Supervisor Name Role Phone Unavailable Primary Care Provider Unavailabl e Encounter Details Date Type Department Care Team (Late st Contact Info) Description 11/01/2007 Outpatient Historical [facility] PATIENT IN A BED Andrew Pardo MD [address] [facility] [address] 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 Gender Identity Not on file Sexual Orientation [...] CDT) HEMOGLOBIN 15.5 13.6 - 16.5 g/dL [facility] HEMATOCRIT 46.4 40.0 - 48.0 % [facility] Blood specimen (specimen) 11/01/2007 12:50 PM CDT 11/01/2007 2:03 PM CDT us Andrew Pardo MD HEMATOLOGY ORDERABLES Final R esult [facility] CLIA# [id number] [address] [place] [address] * (ABNORMAL) BASIC METABOLIC PANEL (11/01/2007 12:50 PM CDT) CREATININE 1.08 0.67 - 1.17 mg/dL [facility] POTASSIUM 3.7 3.5 - 4.9 mmol/L [facility] BUN 17 6 - 20 mg/dL [facility] CHLORIDE 102 96 - 108 mmol/L [facility] GLUCOSE 102(H) 65 - 99 mg/dL [facility] SODIUM 138 135 - 145 mmol/L [facility] CALCIUM 9.5 8.4 - 10.2 mg/dL [facility] CO2 23 22 - 30 mmol/L [facility] GFR, >60 >=60 mL/min/1. 7 sq meter [facility] GFR >60 >=60 mL/min/1. 7 sq meter [facility] Comment: Estimated GFR rate interpretative information for both Americans and non- Americans is available on the [facility] Intranet at: [email or web address] Select: Lab Policies and Procedures Select: Reference Ranges - GFR Blood specimen (specimen) 11/01/2007 12:50 PM CDT 11/01/2007 2:03 PM CDT us Andrew Pardo MD CHEMISTRY ORDERABLES Edited [facility] CLIA# [id number] [address] [place] [address] * TYPE AND SCREEN (11/01/2007 12:49 PM CDT) HISTORY CHECK No Historical ABO/Rh [facility] SPECIMEN LIFE 3 days from OR date [facility] ANTIBODY SCREEN Negative [facility] ABO/RH TYPE O Negative [facility] Blood specimen (specimen) 11/01/2007 12:49 PM CDT us Andrew Pardo MD BLOOD BANK ORDERABLES Edited [facility] CLIA# [id number] [address] [place] [address] documented in this encounter Visit Diagnoses Not on filedocumented in this encounter
--- OUTSIDE RECORDS SUMMARY | 2024-12-01 00:35 | XMS_ITS ---
Author Organization [facility] Address [address] [place] [address] Care Team Providers Care Supervising Nurse Name Role Phone Micheal Diamond Unavailable [phone] Social History Sex Assigned At : Social History Observation Description Sex Assigned At Male Encounters Encounter Location Date Provider Diagnosis [place] [address] [facility] [address] [place] [address] 10/26/2024 Micheal Diamond Chronic kidney disea se, [...] Name:Micheal Diamond , 12/07/2024 03:15:00 PM, [address], [facility], Progress Notes * Fred LOZADADOB:1965 ( 59 yo M)Acc No.[id number]:10/26/2024 Progress Notes Patient: Fred FOSTER Provider: William ANDREA MD, F.A.C.P, F.A.S.N. :1965 A ge:59 Y S ex:Male Date:10/26/2024 Address:[address] [place] [address] Subjective: * Chief Complaints: * * Medical [...] Treatment: * Billing Information: * Visit Code: 44482 Office Visit, Est Pt., Level 4. * Procedure Codes: * Electronic signature of Crispin Diamond MD on 12/01/2024 at 12:35 AM CDT Sign off status: Pending * Provider: William ANDREA MD, F.A.C.P, F.A.S.N. Date: 0 10/26/2024 Generated for Printing/Faxing/eTransmitting on: 0 12/01/2024 12:35 AM CDT
--- OUTSIDE RECORDS SUMMARY | 2024-12-01 00:36 | XMS_ITS | Patient Health Record ---
Author Organization [facility] Address [address] [facility] [address] [place] [address] Care Team Providers Care Roof Assembler Name Role Phone Micheal Diamond Unavailable [phone] Reason For Referral No Information Medications Medication SIG (Take, Route, Frequency, Duration) Notes Start Date End Date Status Ergocalciferol 1.25 MG (49309 UT) 1 capsule Orally Once a week for 90 day(s) 09/07/2024 06/25/2025 Active Allopurinol 100 MG 1 tablet Orally Once a day for 90 days 09/28/2024 09/23/2025 Active Calcitriol 0.5 MCG TAKE 1 CAPSULE BY [facility] EVERY DAY FOR 30 DAYS for 90 Active Social History Sex Assigned At : Social History Observation Description Sex Assigned At Male Problems Problem Type SNOMED Code ICD Code Onset Dates Problem Status W/U Status Risk Notes Problem Diabetic renal disease (548623974) Type 2 diabetes mellitus with diabetic chronic kidney disease (E11.22) Active confirmed Problem Vitamin D deficiency (61140747) Vitamin D deficiency, unspecified (E55.9) Active confirmed Problem Hyperlipidemia (08563721) Hyperlipidemia, unspecified (E78.5) Active confirmed Problem Hyperuricemia withou t signs of inflammatory arthritis and tophaceous disease (332994474) Hyperuricemia without signs of inflammatory arthritis and tophaceous disease (E79.0) Active confirmed Problem Renal osteodystrophy (98067271) Renal osteodystrophy (N25.0) Active confirmed Problem Secondary hyperparathyroidism of renal origin (77022563) Secondary hyperparathyroidism of renal origin (N25.81) Active confirmed Problem Chest pain (46654040) Chest pain , unspecified (R07.9) Active confirmed Problem Tremor (29092298) Tremor, unspec ified (R25.1) Active confirmed Problem Glycosuria (19541211) Glycosuria (R81) Active c onfirmed Problem Tobacco use (453843729) Tobacco use (Z72.0) Active confirmed Problem Essential hypertension (55205339) Essential hypertension (I10) Active confirmed Problem Chronic kidney disease stage 3B (disorder) (764329182) Chronic kidney disease, stage 3b (N18.32) Active confirmed Problem Coronary artery disease (04636483) CAD (coronary artery disease) (I25.10) Active confirmed Problem Acidosis (disorder) (74822539) Acidosis, unspecified (E87.20) Active confirmed Encounters Encounter Location Date Provider Diagnosis [facility] [address] [address] 07/27/2024 Micheal Diamond Chronic kidney disea se, stage 3b N18.32 ; Abnormal radiologic findings on diagnostic imaging of unspecified kidney R93.429 ; End stage renal disease N18.6 ; Chest pain, unspecified R07.9 ; CAD (coronary artery disease) I25.10 ; Hyperlipidemia, unspecified E78.5 and Renal osteodystrophy N25.0 [facility] [address] [address] 09/07/2024 Micheal Diamond Chronic kidney disea se, stage 3b N18.32 ; CAD (coronary artery disease) I25.10 ; Hyperlipidemia, unspecified E78.5 ; Renal osteodystrophy N25.0 ; Nicotine dependence, unspecified, uncomplicated F17.200 ; Acidosis, unspecified E87.20 and Chest pain, unspecified R07.9 [facility] [address] [address] 09/28/2024 Micheal Diamond Chronic kidney disea se, [...] Tobacco use Z72.0 and Tremor, unspecified R25.1 [facility] [address] [address] 10/26/2024 Micheal Diamond Chronic kidney disea se, [...] Tobacco use Z72.0 and Tremor, unspecified R25.1 [facility] [address] [place] [address] 09/07/2024 Micheal Diamond [facility] [address] [place] [address] 09/28/2024 Micheal Diamond Assessments Encounter Date Diagnosis [...] , 12/07/2024 03:15:00 PM, [address] Radha Conchis, [facility] [address], [place], [address],
--- OUTSIDE RECORDS SUMMARY | 2024-12-01 00:36 | XMS_ITS | Clinical Summary ---
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
--- OUTSIDE RECORDS SUMMARY | 2024-12-01 00:36 | XMS_ITS | Clinical Summary ---
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
--- OUTSIDE RECORDS SUMMARY | 2024-12-01 00:36 | XMS_ITS ---
Author Organization [facility] Address [address] [address] [place] [address] Care Team Providers Care Field Education Director Name Role Phone Micheal Diamond Unavailable [phone] Social History Sex Assigned At : Social History Observation Description Sex Assigned At Male Problems Problem Type SNOMED Code ICD Code Onset Dates Problem Status W/U Status Risk Notes Problem Essential hypertension (89484752) Essential hypertension (I10) Active confirmed Problem Secondary hyperparathyroidism of renal origin (60450000) Secondary hyperparathyroidism of renal origin (N25.81) Active confirmed Problem Vitamin D deficiency (80432164) Vitamin D deficiency, unspecified (E55.9) Active confirmed Problem Glycosuria (41218638) Glycosuria (R81) Active c onfirmed Problem Hyperuricemia withou t signs of inflammatory arthritis and tophaceous disease (102643193) Hyperuricemia without signs of inflammatory arthritis and tophaceous disease (E79.0) Active confirmed Problem Diabetic renal disease (010734503) Type 2 diabetes mellitus with diabetic chronic kidney disease (E11.22) Active confirmed Problem Tobacco use (093843110) Tobacco use (Z72.0) Active confirmed Problem Tremor (66629312) Tremor, unspec ified (R25.1) Active confirmed Encounters Encounter Location Date Provider Diagnosis [place] [facility] [address] [facility] [address] [place] [address] 09/28/2024 Micheal Diamond Chronic kidney disea se, [...] Plan Of Treatment Next Appt Details Provider Name:Micehal Diamond , 12/07/2024 03:15:00 PM, [address] [facility] [address], [address], Progress Notes * Fred LOZADADOB:1965 ( 59 yo M)Acc No.[id number]:09/28/2024 Progress Notes Patient: Fred FOSTER Provider: William ANDREA MD, F.A.C.P, F.A.S.N. :1965 A ge:59 Y S ex:Male Date:09/28/2024 Address:[address] [place], [place] [id number] Subjective: * Chief Complaints: * * Medical [...] Treatment: * Billing Information: * Visit Code: 92242 Office Visit, Est Pt., Level 4. * Procedure Codes: * Electronic signature of Crispin Diamond MD on 12/01/2024 at 12:35 AM CDT Sign off status: Pending * Provider: William ANDREA MD, F.Abad.Juju.P, F.A.S.N. Date: 0 09/28/2024 Generated for Printing/Faxing/eTransmitting on: 0 12/01/2024 12:35 AM CDT
--- OUTSIDE RECORDS SUMMARY | 2024-12-01 00:36 | XMS_ITS ---
Author Organization [facility] Address [address] [address] [place] [address] Care Team Providers Care Wide Area Network Engineer Name Role Phone Micheal Diamond Unavailable [phone] Social History Sex Assigned At : Social History Observation Description Sex Assigned At Male Problems Problem Type SNOMED Code ICD Code Onset Dates Problem Status W/U Status Risk Notes Problem Acidosis (disorder) (88253185) Acidosis, unspecified (E87.20) Active confirmed Problem Chest pain (99366731) Chest pain, unspecified (R07.9) Active confirmed Encounters Encounter Location Date Provider Diagnosis [place] [facility] [address] [facility] [address] [place] [address] 09/07/2024 Micheal Diamond Chronic kidney disea se, [...] Name:Micheal Diamond , 12/07/2024 03:15:00 PM, [address] [facility] [address], [place], [address], Progress Notes * Fred LOZADADOB:1965 ( 59 yo M)Acc No.[id number]:09/07/2024 Progress Notes Patient: Fred FOSTER Provider: William ANDREA MD, Blake.Abad.C.P, F.A.S.N. :1965 A ge:59 Y S ex:Male Date:09/07/2024 Address:[address] [place] [address] Subjective: * Chief Complaints: * * Medical [...] Treatment: * Billing Information: * Visit Code: 08080 Office Visit, Est Pt., Level 4. * Procedure Codes: * Electronic signature of Crispin Diamond MD on 12/01/2024 at 12:36 AM CDT Sign off status: Pending * Provider: William ANDREA MD, F.Abad.C.P, F.A.S.N. Date: 0 09/07/2024 Generated for Printing/Faxing/eTransmitting on: 0 12/01/2024 12:36 AM CDT
--- OUTSIDE RECORDS SUMMARY | 2024-12-01 00:36 | XMS_ITS | Referral Summary ---
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
--- NOTE | 2024-12-01 00:41 | ED.DIZZY ---
HPI - Dizziness General Chief Complaint: Dizziness Stated Complaint: lower back, abd pain, dizzy, SOB Time Seen by Provider: 11/30/24 23:22 History of Present Illness HPI Narrative: Patient is a 59-year-old male who presents to the ER with bilateral lower back pain and feeling ?run down and sluggish. He reports he has not taken his medications to treat his diabetes for over a week, as he has had difficulty getting his medicine. Patient endorses chest pain and slight shortness of breath. He reports the symptoms have been going on for a while but he decided to come in for evaluation when he started experiencing chest pain. Patient also endorses lower abdominal pain. He reports he has a history of decreased kidney function, cardiac stent, diabetes, and high blood pressure. Patient denies any recent fevers, urinary symptoms, headaches, or one-sided numbness/tingling. Related Data Home Medications ?Medication ?Instructions ?Recorded ?Confirmed ?Last Taken ?Type amlodipine 5 mg tablet 5 mg QAM 08/28/19 08/28/19 08/28/19 History atorvastatin 20 mg tablet 20 mg QAM 08/28/19 08/28/19 08/28/19 History lisinopril 40 mg tablet 40 mg DAILY 08/28/19 08/28/19 08/28/19 History Allergies Allergy/AdvReac Type Severity Reaction Status Date / Time No Known Allergies Allergy Verified 11/30/24 22:10 Review of Systems Review of Systems: All systems reviewed & are unremarkable except as noted in HPI and below PMFSH Past Medical History Medical History (Updated 12/01/24 @ 02:36 by Josefa Loomis APRN) Hypertension Anxiety Depression Hyperlipidemia Surgical History Surgical History History of back surgery Family History Family History Father Malignant neoplasm of prostate Acute myocardial infarction Diabetes mellitus Mother Diabetes mellitus Acute myocardial infarction Sibling Diabetes mellitus Social History Social History Social History: The patient is and lives with his in [place]. He designates his Farida is a surrogate decision-maker and he wishes to be a full code. 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 He is a former smoker, unable to qualify, and says he quit smoking several years back however his carboxyhemoglobin is elevated on ABG today. He drinks alcohol rarely, maybe several times a year. He denies illicit drug use. Smoking status: Former smoker Tobacco type: cigarettes Second hand tobacco smoke exposure: No Smoking end date: 08/21/15 Alcohol intake: current Drinks per week: 0 Substance use: current Substance use type: marijuana Spiritual care concerns: No Agree to blood products: Yes Exam Narrative: GENERAL: Well appearing, well-nourished, non-toxic, in no acute distress. HEAD: Normocephalic, atraumatic. NECK: Supple. No adenopathy, no masses. RESPIRATORY: Airway patent, respirations nonlabored. Clear to auscultation bilaterally, no rales, rhonchi, wheezing. CARDIOVASCULAR: Regular rate and rhythm without murmurs, rubs, or gallops. Peripheral pulses 2+ and equal bilaterally. ABDOMINAL: Soft, tender LLQ and RLQ, nondistended, no hepatosplenomegaly. Normoactive BS. MUSCULOSKELETAL: Moves all extremities. Strength/ROM intact without gross deformities. SKIN: Warm, dry, normal color. No rashes. NEURO: A&O X3. Speech clear. Cranial nerves II-XII intact. No ataxic movements. PSYCHIATRIC: Appropriate mood and affect. Normal interaction. Course Vital Signs Vital signs: Vital Signs Temperature 37.0 C 11/30/24 22:12 Pulse Rate 66 11/30/24 22:12 Respiratory Rate 16 11/30/24 22:12 Blood Pressure 112/81 11/30/24 22:12 Pulse Oximetry 98 11/30/24 22:12 Oxygen Delivery Room Air 11/30/24 22:12 Temperature 37.0 C 11/30/24 22:12 Pulse Rate 85 12/01/24 02:12 Respiratory Rate 14 12/01/24 02:12 Blood Pressure 126/86 12/01/24 02:12 Pulse Oximetry 99 12/01/24 02:12 Oxygen Delivery Room Air 11/30/24 22:50 MDM - Dizziness MDM Narrative Medical decision making narrative: Patient is a 59-year-old male who presents to the ER with bilateral lower back pain and feeling ?run down and sluggish. He reports he has not taken his medications to treat his diabetes for over a week, as he has had difficulty getting his medicine. Patient endorses chest pain and slight shortness of breath. He reports the symptoms have been going on for a while but he decided to come in for evaluation when he started experiencing chest pain. Patient also endorses lower abdominal pain. He reports he has a history of decreased kidney function, cardiac stent, diabetes, and high blood pressure. Patient denies any recent fevers, urinary symptoms, headaches, or one-sided numbness/tingling. *at time of examination pt endorses anxiety and is requesting medication to treat it. Labs Ordered: CBC, CRP, lactic acid, UA, lipase, CMP, ESR, COVID/flu/RSV swab Imaging Ordered: CT chest abdomen pelvis Medications Ordered: 1 L normal saline IV bolus, Ativan 0.5 mg IV (per patient's request due to his anxiety) Results: Patient's CBC indicates of white blood cell count of 13.1, hemoglobin of 12.4, hematocrit of 38.7. His CMP indicates a BUN of 29, creatinine of 2.27, GFR of 30, glucose of 174, calcium of 10.3. Patient's lipase is within normal limits. Patient's CT scan indicates cardiomegaly, hepatic steatosis, cholelithiasis, and nonobstructing 6 mm left lower pole renal stone, otherwise there are no acute abnormalities. Diagnosis: Acute kidney injury Patient Education/Shared MDM: Results of lab work and imaging shared with patient. He reports he receives most of his care, including his primary care, in [place]. Patient reports he was supposed to have his cardiac catheterization at [facility], but they canceled it due to his poor kidney function. He does not know what any of his creatinine levels have been in the past. It was advised patient be admitted to the hospital for further evaluation. Patient verbalized understanding and is in agreement with plan. 0230-Spoke with Dr. Trinidad, who is in agreement with plan to admit patient under observation. He will be admitted to the medical/surgical floor. Differential Diagnosis Differential diagnosis: Likely orthostatic hypotension and other (Acute kidney injury, dehydration, weakness) Lab Data Attestation: I reviewed the patient's lab results. 11/30/24 22:56 11/30/24 22:56 Labs: Lab Results 06/05/1612/01/24 12/01/24 Range/Units 22:56 01:46 01:56 WBC 13.1 H (4.5-10.0) K/mm3 RBC 4.26 L (4.6-6.20) M/mm3 Hgb 12.4 L (14.0-18.0) g/dL Hct 38.7 L (42.0-52.0) % MCV 90.8 (80-100) fl MCH 29.1 (26-34) pg MCHC 32.0 (32-36) g/dl RDW 14.3 (11.5-14.5) % Plt Count 247 (150-375) k/mm3 MPV 10.4 (7.4-10.4) fl Immature Gran % (Auto) 0.4 (0-0.5) % Neut % (Auto) 68.5 (45.5-73.1) % Lymph % (Auto) 20.3 (18.3-44.2) % [place] % (Auto) 8.1 (2.6-8.5) % Eos % (Auto) 2.2 (0-4.4) % Baso % (Auto) 0.5 (0.2-1.2) % Lymph # (Auto) 2.66 (0.9-3.2) K/mm3 [place] # (Auto) 1.1 H (0.1-0.6) K/mm3 Eos # (Auto) 0.3 (0-0.3) K/mm3 Baso # (Auto) 0.1 (0.0-0.1) K/mm3 Abs Immat Gran (auto) 0.05 H (0.00-0.031) K/mm3 Absolute Neuts (auto) 9.0 H (1.3-6.7) K/mm3 Absolute Nucleated RBC 0.000 (0.0-0.012) K/mm3 Nucleated RBC % 0.0 (0.0-0.2) % Sodium 138 (137-145) mmol/L Potassium 3.7 (3.4-5.0) mmol/L Chloride 103 (98-107) mmol/L Carbon Dioxide 26 (22-30) mmol/L Anion Gap 9 (4-12) mmol/L BUN 29 H D (9-20) mg/dL Creatinine 2.27 H (0.7-1.3) mg/dL Estim Creat Clear Calc 36 ml/min Estimated GFR 30 L (59 - ) Glucose 174 H (65-110) mg/dL Lactic Acid 1.1 (0.7-2.0) mmol/L Calcium 10.3 H (8.4-10.2) mg/dL Total Bilirubin 0.3 (0.2-1.3) mg/dL AST 26 (17-59) U/L ALT 31 (6-50) U/L Alkaline Phosphatase 99 (38-126) U/L Total Protein 7.4 (6.3-8.2) g/dL Albumin 4.3 (3.5-5.1) g/dL Lipase 131 (23-300) U/L Urine Color Yellow (Yellow) Urine Appearance Clear (Clear) Urine pH 6.0 (5.0-9.0) Ur Specific [place] 1.019 (1.001-1.035) Urine Protein Trace (Negative) mg/dL Urine Glucose (UA) 3+ H (Negative) mg/dL Urine Ketones Negative (Negative) mg/dL Ur Blood (Man) Negative (Negative) Urine Nitrate Negative (Negative) Urine Bilirubin Negative (Negative) Urine Urobilinogen 0.2 (<2.0) mg/dL Leukocyte Esterase Rfl Negative (Negative) ELLIE/UL Urine RBC 0-2 (0-2) /hpf Urine WBC 0-5 (0-3) /hpf Ur Squamous Epith Cells None seen (Few) /hpf Urine Bacteria None seen /hpf Urine Casts 0-2 Influenza A (RT-PCR) Negative (Negative) Influenza B (RT-PCR) Negative (Negative) RSV (RT-PCR) Negative (Negative) SARS-CoV-2 RNA (RT-PCR) Negative (Negative) Discharge Plan Discharge Clinical Impression: Acute on chronic renal failure, Acute kidney injury Patient Disposition: Still a Patient Condition: Stable
--- NOTE | 2024-12-01 00:53 | ECG_ITS ---
Test Date: 2024-12-01 00:53:33 Measurements Intervals [place] Rate: 81 P: 46 FL: 197 QRS: 46 QRSD: 134 T: 39 QT: 389 QTc: 452 Interpretive Statements SINUS RHYTHM RIGHT BUNDLE BRANCH BLOCK MINIMAL Q WAVES- HIGH LATERAL LEADS BASELINE ARTIFACT- I, II, AVR ABNORMAL ECG No previous ECG available for comparison Electronically Signed On 12-01-2024 07:07:15 CDT by Constantino Molina D.O.
[2024-12-01] MEDS: SODIUM CHLORIDE 0.9% IV 1,000 ML 999 ML IV CONT (01:37)
[2024-12-01] MEDS: LORazepam INJ (*CRX) 2 MG/ML VIAL 0.5 MG IV PUSH (01:37)
[2024-12-01 01:54] LABS: CRP 1.7 mg/dL (<1.0)
[2024-12-01 02:02] LABS: Lactic Acid Reflex 1.1 mmol/L (0.7-2.0)
[2024-12-01 02:14] LABS: Add Urine Microscopic? YES; Appearance Urine Clear (Clear); Bacteria Urine None Seen /hpf; Bilirubin Urine Negative (Negative); Blood Urine Negative (Negative); Color Urine Yellow (Yellow); Glucose Urine UA 3+ mg/dL (Negative); Ketones Urine Negative (Negative); Leukocyte Esterase Ur Negative LEU/UL (Negative); Nitrate Urine Negative (Negative); Non Pathogenic Casts 0-2; Protein Urine Trace mg/dL (Negative); RBC Urine 0-2 /hpf (0-2); Specific Grav Ur 1.019 (1.001-1.035); Squamous Epithelial Cell Urine None Seen /hpf (Few); Urobilinogen Urine 0.2 mg/dL (<2.0); WBC Urine 0-5 /hpf (0-3)
[2024-12-01 02:44] LABS: Influenza A QL RT-PCR Negative (Negative); Influenza B QL RT-PCR Negative (Negative); RSV RNA, RT-PCR Negative (Negative); SARS-CoV-2 RNA PCR Negative (Negative)
[2024-12-01 02:57] LABS: Erythrocyte Sedimentation Rate 18 mm/hr (0-20)
--- NOTE | 2024-12-01 03:36 | ADMGEN ---
This patient, Fred Lozada, was admitted to Medical Room 347-01. Patient/family oriented to hospital policies and general routines including ID bracelet, bed and alarms, visiting hours, pain management, procedures, bathroom and other care routines, personal items, smoking policy, room service/diet, and visiting hours. Information on how to activate the Rapid Response Team has been discussed. Patient/Family are encouraged to report perceived risks to care and to ask questions if they do not understand what they are told or what they should do.
[2024-12-01] MEDS: SODIUM CHLORIDE 0.9% IV 1,000 ML 125 ML IV CONT ×3 (04:20→20:52)
--- NOTE | 2024-12-01 08:50 | PM.IMHP ---
H&P: HPI History of Present Illness Date/Time: 12/01/24 1142 Chief Complaint: Low back pain, low abd pain, weakness Per ED provider: Patient is a 59-year-old male who presents to the ER with bilateral lower back pain and feeling ?run down and sluggish. He reports he has not taken his medications to treat his diabetes for over a week, as he has had difficulty getting his medicine. Patient endorses chest pain and slight shortness of breath. He reports the symptoms have been going on for a while but he decided to come in for evaluation when he started experiencing chest pain. Patient also endorses lower abdominal pain. He reports he has a history of decreased kidney function, cardiac stent, diabetes, and high blood pressure. Patient denies any recent fevers, urinary symptoms, headaches, or one-sided numbness/tingling. *at time of examination pt endorses anxiety and is requesting medication to treat it. Labs Ordered: CBC, CRP, lactic acid, UA, lipase, CMP, ESR, COVID/flu/RSV swab Imaging Ordered: CT chest abdomen pelvis Medications Ordered: 1 L normal saline IV bolus, Ativan 0.5 mg IV (per patient's request due to his anxiety) Results: Patient's CBC indicates of white blood cell count of 13.1, hemoglobin of 12.4, hematocrit of 38.7. His CMP indicates a BUN of 29, creatinine of 2.27, GFR of 30, glucose of 174, calcium of 10.3. Patient's lipase is within normal limits. Patient's CT scan indicates cardiomegaly, hepatic steatosis, cholelithiasis, and nonobstructing 6 mm left lower pole renal stone, otherwise there are no acute abnormalities. Diagnosis: Acute kidney injury Patient Education/Shared MDM: Results of lab work and imaging shared with patient. He reports he receives most of his care, including his primary care, in [place]. Patient reports he was supposed to have his cardiac catheterization at [facility], but they canceled it due to his poor kidney function. He does not know what any of his creatinine levels have been in the past. It was advised patient be admitted to the hospital for further evaluation. Patient verbalized understanding and is in agreement with plan. 12/01: Pt seen today, he was resting in bed upon my arrival to his room. Pt denies CP and SOB today as well as weakness and abd pain. Pt only endorsing mild lower back pain, bilaterally. Denies CVA TTP. Updated on all of his testing and plan for stay. We talked extensively about his medical hx, see in H&P. Pt recently got a new PCP which has delayed him getting his routine DM medications, restarted here while inpt. Also of note, pt reports that x1 month ago that he was supposed to have an outpt cardiac cath with stent placement but went in and since his creatinine was elevated, he could not undergo the procedure. Pt was initially in the hospital at [place] for CP and this is why he was referred for outpatient cardiac cath. Pt was given referrals to [facility] cards and nephrology for f/u after this but has yet to follow-up. Review of Systems Review of Systems: All systems reviewed & are unremarkable except as noted in HPI and below PMFSH Past Medical History Medical History (Updated 12/01/24 @ 15:23 by Gaby Aguilar APRN) CAD (coronary artery disease) Mental health disorder Diabetes mellitus Hypertension Anxiety Depression Hyperlipidemia Surgical History Surgical History History of back surgery Family History Family History Father Malignant neoplasm of prostate Acute myocardial infarction Diabetes mellitus Mother Diabetes mellitus Acute myocardial infarction Sibling Diabetes mellitus Social History Social History Social History: The patient is and lives with his in [place]. He designates his Farida is a surrogate decision-maker and he wishes to be a full code. 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 He is a former smoker, unable to qualify, and says he quit smoking several years back however his carboxyhemoglobin is elevated on ABG today. He drinks alcohol rarely, maybe several times a year. He denies illicit drug use. Smoking status: Former smoker Tobacco type: cigarettes Second hand tobacco smoke exposure: No Smoking end date: 08/21/23 Alcohol intake: never Drinks per week: 0 Substance use: former Substance use type: marijuana Last use: Do You Feel Safe in your Home?: Yes Lack of Transportation: No Lack of Food: Often True Current Housing: I Have Housing Concerned About Future Housing: No Difficulty Paying Gas/Electric Bills: YES Difficulty Paying for Meds: YES Currently Unemployed: YES Education: Associate Degree Difficulty w/ Childcare or Family Care: No Spiritual care concerns: No Agree to blood products: Yes Meds Home Medications and Allergies Home Medications ?Medication ?Instructions ?Recorded ?Confirmed ?Type amlodipine 5 mg tablet 5 mg PO QAM 08/28/19 12/01/24 History atorvastatin 20 mg tablet 20 mg PO QAM 08/28/19 12/01/24 History lisinopril 20 mg tablet 40 mg (2 x 20 mg) PO QAM #40 tabs 09/01/19 12/01/24 Rx venlafaxine 150 mg 150 mg PO DAILY #60 caps 09/02/19 12/01/24 Rx capsule,extended release 24 hr (Effexor XR) alprazolam 1 mg tablet 1 mg PO BID 12/01/24 12/01/24 History aripiprazole 20 mg tablet 20 mg PO QHS 12/01/24 12/01/24 History dapagliflozin propanediol 10 mg 10 mg PO DAILY 12/01/24 12/01/24 History tablet (Farxiga) gabapentin 600 mg tablet 600 mg PO TID 12/01/24 12/01/24 History pioglitazone 15 mg tablet 15 mg PO DAILY 12/01/24 12/01/24 History ropinirole 1 mg tablet 1 mg PO QHS 12/01/24 12/01/24 History sitagliptin phosphate 100 mg 100 mg PO DAILY 12/01/24 12/01/24 History tablet (Januvia) tirzepatide 2.5 mg/0.5 mL 2.5 mg subcut WEEKLY 12/01/24 12/01/24 History subcutaneous pen injector (Mounjaro) Allergies Allergy/AdvReac Type Severity Reaction Status Date / Time No Known Allergies Allergy Verified 11/30/24 22:10 Vital Signs Vital Signs - 24 hr 11/30/24 22:12 11/30/24 22:50 12/01/24 02:12 Temperature 98.6 F Pulse Rate 66 86 85 Respiratory Rate 16 17 14 Blood Pressure 112/81 145/88 H 126/86 Pulse Oximetry 98 98 99 Oxygen Delivery Room Air Room Air 12/01/24 04:15 12/01/24 06:00 12/01/24 06:02 Temperature 98 F Pulse Rate 85 88 90 Respiratory Rate 14 20 Blood Pressure 126/86 107/87 121/74 Pulse Oximetry 99 98 Oxygen Delivery 12/01/24 06:06 Temperature Pulse Rate 105 H Respiratory Rate Blood Pressure 129/71 Pulse Oximetry Oxygen Delivery H&P: Results Labs Labs: Short CBC 11/30/24 Range/Units 22:56 WBC 13.1 H (4.5-10.0) K/mm3 Hgb 12.4 L (14.0-18.0) g/dL Hct 38.7 L (42.0-52.0) % Plt Count 247 (150-375) k/mm3 BMP 11/30/24 22:56 Sodium 138 Potassium 3.7 Chloride 103 Carbon Dioxide 26 BUN 29 H D Creatinine 2.27 H Glucose 174 H Calcium 10.3 H Liver Function 11/30/24 Range/Units 22:56 Total Bilirubin 0.3 (0.2-1.3) mg/dL AST 26 (17-59) U/L ALT 31 (6-50) U/L Alkaline Phosphatase 99 (38-126) U/L Albumin 4.3 (3.5-5.1) g/dL Urine 12/01/24 Range/Units 01:46 Urine Color Yellow (Yellow) Urine Appearance Clear (Clear) Urine pH 6.0 (5.0-9.0) Ur Specific [place] 1.019 (1.001-1.035) Urine Protein Trace (Negative) mg/dL Urine Glucose (UA) 3+ H (Negative) mg/dL Assessment and Plan Assessment and plan (1) Acute kidney injury: Code(s): N17.9 - Acute kidney failure, unspecified Status: Acute Assessment and Plan: Acute on chronic -BUN/cr/GFR 11/30 in ED: ., will continue to trend in the AM. -HELD Gabapentin starting 11/30 (normally 600mg TID) may need to decrease this upon discharge -Has an outside neph referral via but has not established yet -Consulted neph for inpt/meds rec -Per CT: 8mm nonobstructing L renal stone, straining all urine - pt denies any intense pain, does report that he started to have lower back pain, across bilaterally, x1 week ago which is still present, but denies need for pain medication (2) Acute on chronic renal failure: Code(s): N17.9 - Acute kidney failure, unspecified; N18.9 - Chronic kidney disease, unspecified Status: Acute Assessment and Plan: See above. (3) Diabetes mellitus: Code(s): E11.9 - Type 2 diabetes mellitus without complications Status: Acute Assessment and Plan: Restarted home DM medications except injectable (Mounjaro) -Pt states that he has not been taking his DM meds because he recently changed PCPs (New: Dr. Jovon Odonnell, at ) and there has been a hold up with meds over the last several weeks because of this change -Pending A1C draw in the AM, will likely start to get accuchecks/sliding scale insulin once lab returns (4) Hypertension: Code(s): I10 - Essential (primary) hypertension Status: Chronic Assessment and Plan: Continue home meds BP measurements have been stable here inpt (5) Mental health disorder: Code(s): F99 - Mental disorder, not otherwise specified Status: Acute Assessment and Plan: Restart home meds (6) CAD (coronary artery disease): Code(s): I25.10 - Atherosclerotic heart disease of [place] coronary artery without angina pectoris Status: Acute Assessment and Plan: Restarted statin, HTN, and DM medications today Continues to deny any CP or SOB. Pt states that when he came into the ED he had just got done yelling at his son and thinks this is what made him have CP. ED EKG: SINUS RHYTHM, RIGHT BUNDLE BRANCH BLOCK, MINIMAL Q WAVES- HIGH LATERAL LEADS, BASELINE ARTIFACT- I, II, AVR -Pt reports that around x1 month ago that he was supposed to have an outpt cardiac cath with stent placement but went in and since his creatinine was elevated, he could not undergo the procedure. -->Pt was initially in the hospital at [place] for CP and this is why he was referred for outpatient cardiac cath -Pt was given referrals to cards and nephrology for f/u after this but has yet to follow-up: Cards: Dr. Jones Islas Neph: Dr. Micheal Diamond (7) Lung nodule: Code(s): R91.1 - Solitary pulmonary nodule Status: Acute Assessment and Plan: Per CT: Irregular groundglass opacity right lung apex, likely focal scarring. Additional 9 mm right upper lobe nodule with possible faint calcification, indeterminate, but possibly granuloma. Recommended follow-up CT scan in 3 months to reassess the above findings. Updated pt on this today, reports that he has not ever been told of this before. Updated him on the plan for repeat chest imaging in x3 months via his PCP, pt agreeable. (8) Cholelithiasis: Code(s): K80.20 - Calculus of gallbladder without cholecystitis without obstruction Status: Acute Assessment and Plan: Per CT. Pt denies this dx before. -Pt denies any able pain, will continue to trend pain -Liver enzymes WDL Plan Continue home meds, VS, and AM labs. Await neph consult and appreciate recs for FUNMILAYO/CKD control. Quality VTE Prophylaxis VTE prophylaxis: mechanical ordered Hospitalist MIPS Advance Care Plan I have confirmed that the patient's Advanced Care Plan is present, code status is documented, or surrogate decision maker is listed in patient medical record.: Yes Medication Reconciliation I have utilized all available resources to obtain, update and review the patients current medications (includes all prescriptions, OTC, herbals, cannabis, and nutritional supplements).: No The patient is not eligible for med reconciliation; the patient is in a emergent medical situation where delaying treatment would jeopardize the patients health.: No
[2024-12-01] MEDS: lisinopriL 20 MG TABLET 40 MG PO (08:59)
[2024-12-01] MEDS: EMPAGLIFLOZIN 25 MG TABLET PO (08:59)
[2024-12-01] MEDS: ALPRAZolam (*CRX) 0.5 MG TABLET 1 MG PO ×2 (08:59→17:09)
[2024-12-01] MEDS: VENLAFAXINE HCL XR 75 MG CAP.ER.24H 150 MG PO (08:59)
[2024-12-01] MEDS: amLODIPine BESYLATE 5 MG TABLET PO (09:00)
[2024-12-01] MEDS: PIOGLITAZONE HCL 15 MG TAB PO (09:00)
[2024-12-01] MEDS: SITagliptin PHOSPHATE 100 MG TABLET PO (09:00)
[2024-12-01] MEDS: GABAPENTIN 300 MG CAPSULE 600 MG PO ×2 (09:00→12:20)
[2024-12-01] MEDS: ATORVASTATIN 20 MG TABLET PO (09:00)
[2024-12-01 09:02] LABS: Glucose Point of Care 171 mg/dl (65-105)
--- NOTE | 2024-12-01 16:01 | P.CONNP_ITS ---
Assessment and Plan Assessment and plan (1) Chronic kidney disease: Code(s): N18.9 - Chronic kidney disease, unspecified Status: Chronic Assessment and Plan: * creatinine 2.27mg/dl on admission * creatinine was 2.38mg/dl by labs on 07/15/24 * only previous labs for comparison are from 2019 -- creatinine normal at that time * imaging noted: * CT A/P with right kidney within normal limits and 8 mm nonobstructing left renal stone present * renal u/s (August 2024) without obstruction * check urine studies, CPK, and serologies * suspect due to hypertension, diabetes, and vascular disease * follow trend of repeat labs and UOP (2) CAD (coronary artery disease): Code(s): I25.10 - Atherosclerotic heart disease of [place] coronary artery without angina pectoris Status: Acute Assessment and Plan: * appears to have resolved * resumed on statin and BP medications * noted plan for outpatinet cardiac catheterization * delayed due to issues with renal dysfunction/CKD (3) Hypertension: Code(s): I10 - Essential (primary) hypertension Status: Chronic Assessment and Plan: * resumed on home BP medications * reasonable control * follow trend of hemodyanmics (4) Diabetes mellitus: Code(s): E11.9 - Type 2 diabetes mellitus without complications Status: Acute Assessment and Plan: * follow accu-cheks * glycemic control per hospitalist I will continue to follow the patient with you while he remains hospitalized and make further recommendations as deemed necessary. Thank you for allowing me to participate in the care of this patient. L History of Present Illness Reason for Consult Consult date: 12/01/24 Reason for consult: chronic renal failure Chief Complaint Chief complaint: Acute on chronic kidney injury History of Present Illness Narrative: The patient is a 59-year-old male with a past medical history as outlined below who presented to [facility] Emergency Room with low back pain and generalized weakness. The patient reports that he is not taking his medications for his diabetes for over week as he has had difficulty getting them. Furthermore, he endorses symptoms of slight shortness of breath as well as chest pain. As the symptoms seem to be progressively getting worse, he decided come into the emergency room for further assessment. Along with his chest discomfort, he also reports lower abdominal pain as well. He has a known history of cardiac disease and was supposed to get a cardiac catheterization with stenting done but this was deferred due to issues with regard to his renal dysfunction. He gives no other history with regard to fevers, chills, dysuria, headaches, numbness, tingling, nausea, or vomiting. Workup and evaluation emergency room demonstrated the patient be hemodynamically stable and in no acute distress. Routine blood test demonstrated a white blood cell count of 13.1, hemoglobin 12.4, hematocrit 38.7, normal platelet count, BUN of 29 creatinine of 2.27 glucose 174, calcium 10.3, and a lipase that was within normal limits. Subsequent CT imaging demonstrated cardiomegaly, hepatic steatosis, cholelithiasis, and a nonobstructing 6 mm left lower pole kidney stone without any other acute pathology. Given his renal dysfunction and constellation of symptoms, he was admitted to the hospital for further evaluation and therapy. Renal consultation was requested due to his renal dysfunction. Unfortunately, I do not have any previous labs to compare to although I was able to find some labs done in June of this year with a creatinine of 2.38 mg/dL. This would assume that his kidney function is actually relatively stable at this time in comparison to previous testing. I will try to call [facility] to try to obtain some previous labs as well as from his primary care physician to further assess the degree and severity of his renal dysfunction at this time. He reports that he was referred to a sales service promoter for outpatient evaluation of his kidney disease but he cannot tell me specifics in terms of what his creatinine or GFR was by last testing. Currently, at the time my visit, he appears to be in no acute distress. Review of Systems 2 Review of Systems: As per HPI. [facility] Past Medical History Medical History (Updated 12/02/24 @ 06:26 by Vega Hall MD) CAD (coronary artery disease) Mental health disorder Diabetes mellitus Hypertension Anxiety Depression Hyperlipidemia Surgical History Surgical History History of back surgery Family History Family History Father Malignant neoplasm of prostate Acute myocardial infarction Diabetes mellitus Mother Diabetes mellitus Acute myocardial infarction Sibling Diabetes mellitus Social History Social History Social History: The patient is and lives with his in [place]. He designates his Farida is a surrogate decision-maker and he wishes to be a full code. 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 He is a former smoker, unable to qualify, and says he quit smoking several years back however his carboxyhemoglobin is elevated on ABG today. He drinks alcohol rarely, maybe several times a year. He denies illicit drug use. Smoking status: Former smoker Tobacco type: cigarettes Second hand tobacco smoke exposure: No Smoking end date: 08/21/23 Alcohol intake: never Drinks per week: 0 Substance use: former Substance use type: marijuana Last use: Do You Feel Safe in your Home?: Yes Lack of Transportation: No Lack of Food: Often True Current Housing: I Have Housing Concerned About Future Housing: No Difficulty Paying Gas/Electric Bills: YES Difficulty Paying for Meds: YES Currently Unemployed: YES Education: Associate Degree Difficulty w/ Childcare or Family Care: No Spiritual care concerns: No Agree to blood products: Yes Meds Home Medications and Allergies Home Medications ?Medication ?Instructions ?Recorded ?Confirmed ?Type amlodipine 5 mg tablet 5 mg PO QAM 08/28/19 12/01/24 History atorvastatin 20 mg tablet 20 mg PO QAM 08/28/19 12/01/24 History lisinopril 20 mg tablet 40 mg (2 x 20 mg) PO QAM #40 tabs 09/01/19 12/01/24 Rx venlafaxine 150 mg 150 mg PO DAILY #60 caps 09/02/19 12/01/24 Rx capsule,extended release 24 hr (Effexor XR) alprazolam 1 mg tablet 1 mg PO BID 12/01/24 12/01/24 History aripiprazole 20 mg tablet 20 mg PO QHS 12/01/24 12/01/24 History dapagliflozin propanediol 10 mg 10 mg PO DAILY 12/01/24 12/01/24 History tablet (Farxiga) gabapentin 600 mg tablet 600 mg PO TID 12/01/24 12/01/24 History pioglitazone 15 mg tablet 15 mg PO DAILY 12/01/24 12/01/24 History ropinirole 1 mg tablet 1 mg PO QHS 12/01/24 12/01/24 History sitagliptin phosphate 100 mg 100 mg PO DAILY 12/01/24 12/01/24 History tablet (Januvia) tirzepatide 2.5 mg/0.5 mL 2.5 mg subcut WEEKLY 12/01/24 12/01/24 History subcutaneous pen injector (Mounjaro) Allergies Allergy/AdvReac Type Severity Reaction Status Date / Time No Known Allergies Allergy Verified 11/30/24 22:10 Vital Signs Vital Signs Temp Pulse Resp BP Pulse Ox O2 Del Method 12/01/24 16:00 78 20 133/81 98 12/01/24 12:00 93 16 136/75 97 12/01/24 08:20 Room Air 12/01/24 06:06 105 H 129/71 12/01/24 06:02 90 121/74 12/01/24 06:00 98 F 88 20 107/87 98 12/01/24 04:15 85 14 126/86 99 12/01/24 02:12 85 14 126/86 99 11/30/24 22:50 86 17 145/88 H 98 Room Air 11/30/24 22:12 98.6 F 66 16 112/81 98 Room Air Exam 2 Narrative: GENERAL APPEARANCE: well developed well nourished male in no acute distress HEENT: normocephalic, atraumatic, normal conjunctiva and sclera, nares patient NECK: no lymphadenopathy, thyromegaly, or JVD MOUTH: normal lips, teeth, and gums CARDIOVASCULAR: RRR, normal S1 and S2, no rub RESPIRATORY: clear to auscultation bilaterally ABDOMEN: soft, nontender, nondistended, positive bowel sounds present EXTREMITIES: no evidence of cyanosis, clubbing, or edema NEUROLOGICAL: falling a sleep during conversation; CN II - XII intact bilaterally; no focal deficits noted Results Lab Results 12/02/24 05:39 12/02/24 05:39 Lab results: Most recent lab results Calcium 10.3 mg/dL (8.4-10.2) H 11/30/24 22:56
[2024-12-01] MEDS: rOPINIRole HCL 1 MG TABLET PO (20:52)
[2024-12-01] MEDS: ARIPiprazole 10 MG TABLET 20 MG PO (20:52)
[2024-12-02] VITALS: BP 147/83; PULSE 81; RESP 20; TEMP 36.6; O2SAT 97
[2024-12-02 05:49] VITALS: BP 132/84; PULSE 98; RESP 18; TEMP 36.6; O2SAT 98
[2024-12-02] MEDS: SODIUM CHLORIDE 0.9% IV 1,000 ML 125 ML IV CONT (05:54)
[2024-12-02 06:02] LABS: Basophils Absolute Auto 0.1 K/mm3 (0.0-0.1); Basophils Percent Auto 0.5 % (0.2-1.2); Eosinophils Absolute Auto 0.3 K/mm3 (0-0.3); Eosinophils Percent Auto 2.9 % (0-4.4); Hematocrit 36.6 % (42.0-52.0); Hemoglobin 11.6 g/dL (14.0-18.0); Immature Granulocyte Absolute 0.04 K/mm3 (0.00-0.031); Immature Granulocyte Percent A 0.4 % (0-0.5); Lymphocytes Absolute Auto 2.75 K/mm3 (0.9-3.2); Lymphocytes Percent Auto 25.1 % (18.3-44.2); Mean Corpuscular HGB Conc 31.7 g/dl (32-36); Mean Corpuscular Volume 91.5 fl (80-100); Mean Platelet Volume 10.2 fl (7.4-10.4); Monocytes Absolute Auto 0.8 K/mm3 (0.1-0.6); Monocytes Percent Auto 7.2 % (2.6-8.5); Neutrophils Percent Auto 63.9 % (45.5-73.1); Platelet Count Result 217 k/mm3 (150-375); Red Cell Distribution Width 13.9 % (11.5-14.5); White Blood Count 10.9 K/mm3 (4.5-10.0)
[2024-12-02 06:16] LABS: Creatinine Urine 64.7 mg/dL; Total Protein Urine Random 18 mg/dL; Urea Random Urine 345 MG/DL
[2024-12-02 06:20] LABS: CRP 1.8 mg/dL (<1.0); Creatine Kinase 90 U/L (55-170); Phosphorus 3.3 mg/dL (2.5-4.5)
[2024-12-02 06:21] LABS: Creatinine Urine 65.9 mg/dL; Total Protein Urine Random 17 mg/dL; Ur Ttl Prot Creatinine Ratio 0.26 mg/mg (0-0.20)
[2024-12-02 06:35] LABS: Eosinophil Urine None Seen % (None Seen); Urine Eos QC 2nd Tech Confirmed
[2024-12-02 06:35] LABS: Erythrocyte Sedimentation Rate 19 mm/hr (0-20)
[2024-12-02 06:42] LABS: Sodium Urine Random 125 meq/L
[2024-12-02 06:44] LABS: Alanine Aminotransferase 23 U/L (6-50); Albumin Level 3.8 g/dL (3.5-5.1); Alkaline Phosphatase 88 U/L (38-126); Anion Gap 8 mmol/L (4-12); Aspartate Amino Transferase 26 U/L (17-59); Bilirubin,Total 0.4 mg/dL (0.2-1.3); Blood Urea Nitrogen 23 mg/dL (9-20); Calcium 9.3 mg/dL (8.4-10.2); Carbon Dioxide 23 mmol/L (22-30); Chloride 108 mmol/L (98-107); Estimated CRCL calculation 45 ml/min; Estimated Glomerular Filt Rate 39; Glucose 122 mg/dL (65-110); Sodium 139 mmol/L (137-145); Total Protein 6.9 g/dL (6.3-8.2)
[2024-12-02 07:19] LABS: Thyroid Stimulating Hormone Reflex 0.634 uIU/mL (0.465-4.68)
[2024-12-02 07:40] LABS: Hemoglobin A1C 6.8 % (<5.7)
[2024-12-02 08:07] LABS: Complement C3 118 mg/dL (88-165)
[2024-12-02] MEDS: ALPRAZolam (*CRX) 0.5 MG TABLET 1 MG PO (08:26)
[2024-12-02] MEDS: amLODIPine BESYLATE 5 MG TABLET PO (08:26)
[2024-12-02] MEDS: VENLAFAXINE HCL XR 75 MG CAP.ER.24H 150 MG PO (08:26)
[2024-12-02] MEDS: lisinopriL 20 MG TABLET 40 MG PO (08:26)
[2024-12-02] MEDS: EMPAGLIFLOZIN 25 MG TABLET PO (08:26)
[2024-12-02] MEDS: SITagliptin PHOSPHATE 100 MG TABLET PO (08:26)
[2024-12-02] MEDS: PIOGLITAZONE HCL 15 MG TAB PO (08:26)
[2024-12-02] MEDS: ATORVASTATIN 20 MG TABLET PO (08:27)
--- NOTE | 2024-12-02 09:35 | P.PNNP_ITS ---
Progress Note: A&P Assessment and Plan (1) Chronic kidney disease: Code(s): N18.9 - Chronic kidney disease, unspecified Status: Chronic Assessment and Plan: * doing better by recent chek * creatinine 2.27mg/dl on admission * creatinine was 2.38mg/dl by labs on 07/15/24 * only previous labs for comparison are from 2020 -- creatinine normal at that time * evaluation noted: * CT A/P with right kidney within normal limits and 8 mm nonobstructing left renal stone present * renal u/s (August 2024) without obstruction * serologies pending * urine electrolytes non-prerenal * urine eosinophils negative * CPK normal * mild proteinuria * suspect due to hypertension, diabetes, and vascular disease * follow trend of repeat labs and UOP (2) CAD (coronary artery disease): Code(s): I25.10 - Atherosclerotic heart disease of [place] coronary artery without angina pectoris Status: Acute Assessment and Plan: * appears to have resolved * resumed on statin and BP medications * noted plan for outpatinet cardiac catheterization * delayed due to issues with renal dysfunction/CKD * plan follow-up with E Mail System Administrator and primary exercise manager (3) Hypertension: Code(s): I10 - Essential (primary) hypertension Status: Chronic Assessment and Plan: * resumed on home BP medications * reasonable control * follow trend of hemodyanmics (4) Diabetes mellitus: Code(s): E11.9 - Type 2 diabetes mellitus without complications Status: Acute Assessment and Plan: * follow accu-cheks * glycemic control per hospitalist Will continue to follow. L Subjective Date/time seen: 12/02/24 09:35 Interval history: Follow-up for chronic kidney disease. Renal function/creatinine doing better by trend of labs since admission; no further complaints of chest pain or shortness of breath at this time; no issues/events overnight or earlier this morning. Exam 2 Narrative: General: WD/WN male in NAD Heart: normal S1 and S2; no rub Lungs: clear to auscultation Abdomen: soft, nontender, nondistended, positive bowel sounds Extremities: no cyanosis or clubbing; no edema Skin: warm and dry Objective Data Vital Signs Vital Signs: Vital Signs Temp Pulse Resp BP Pulse Ox O2 Del Method 12/02/24 08:26 Room Air 12/02/24 05:49 98 F 98 18 132/84 98 12/02/24 00:00 98 F 81 20 147/83 H 97 12/01/24 20:00 80 18 95 Room Air 12/01/24 20:00 98.6 F 80 18 142/74 H 95 12/01/24 16:00 78 20 133/81 98 Intake/Output Intake/Output: Intake & Output 11/29/24 11/30/24 12/01/24 12/02/24 23:59 23:59 23:59 23:59 Intake Total 3870 1590 Balance 3870 1590 Meds/Results Medications: Active Medications Generic Name Dose Route Start Last Admin Trade Name Freq PRN Reason Stop Dose Admin Acetaminophen 650 mg 12/01/24 08:37 Acetaminophen 325 Mg Tablet PO Q4H PRN Mild Pain (1-3) or Fever Alprazolam 1 mg 12/01/24 09:00 12/02/24 08:26 Alprazolam (*Crx) 0.5 Mg Tablet PO 1 mg BID JOEY Administration Amlodipine Besylate 5 mg 12/01/24 09:00 12/02/24 08:26 Amlodipine Besylate 5 Mg Tablet PO 5 mg QAM JOEY Administration Aripiprazole 20 mg 12/01/24 21:00 12/01/24 20:52 Aripiprazole 10 Mg Tablet PO 12/31/24 20:59 20 mg QHS JOEY Administration Atorvastatin Calcium 20 mg 12/01/24 09:00 12/02/24 08:27 Atorvastatin 20 Mg Tablet PO 20 mg QAM JOEY Administration Bisacodyl 5 mg 12/01/24 08:37 Bisacodyl 5 Mg Tablet Ec PO DAILY PRN Constipation Empagliflozin 25 mg 12/01/24 09:00 12/02/24 08:26 Empagliflozin 25 Mg Tablet PO 25 mg DAILY JOEY Administration Gabapentin 600 mg 12/01/24 09:00 12/01/24 12:20 Gabapentin 300 Mg Capsule PO 600 mg TID JOEY Administration Sodium Chloride 1,000 mls @ 125 mls/hr 12/01/24 02:40 12/02/24 05:54 Normal Saline Iv IV CONT 125 mls/hr .Q8H JOEY Administration Lisinopril 40 mg 12/01/24 09:00 12/02/24 08:26 Lisinopril 20 Mg Tablet PO 40 mg QAM JOEY Administration Ondansetron HCl 4 mg 12/01/24 08:37 Ondansetron Inj 4 Mg/2 Ml Vial IV PUSH Q6H PRN Nausea And Vomiting Pioglitazone HCl 15 mg 12/01/24 09:00 12/02/24 08:26 Pioglitazone Hcl 15 Mg Tab PO 15 mg DAILY JOEY Administration Ropinirole HCl 1 mg 12/01/24 21:00 12/01/24 20:52 Ropinirole Hcl 1 Mg Tablet PO 1 mg QHS JOEY Administration Sitagliptin Phosphate 100 mg 12/01/24 09:00 12/02/24 08:26 Sitagliptin Phosphate 100 Mg Tablet PO 100 mg DAILY JOEY Administration Venlafaxine HCl 150 mg 12/01/24 09:00 12/02/24 08:26 Venlafaxine Hcl Xr 75 Mg Cap.Er.24h PO 150 mg DAILY JOEY Administration Radiology Results: ITS Impressions Chest X-Ray 11/30/24 23:24 IMPRESSION: No acute cardiopulmonary pathology. Chest/Abdomen/Pelvis CT 12/01/24 05:15 Impression: Irregular groundglass opacity right lung apex, likely focal scarring. Additional 9 mm right upper lobe nodule with possible faint calcification, indeterminate, but possibly granuloma. Recommended follow-up CT scan in 3 months to reassess the above findings. Cholelithiasis. 8mm nonobstructing left renal stone. Labs Labs: Laboratory Tests 12/02/24 05:39 12/02/24 05:39 Hemoglobin A1c 6.8 H Calcium 9.3 Phosphorus 3.3 Total Bilirubin 0.4 AST 26 ALT 23 Alkaline Phosphatase 88 Total Creatine Kinase 90 C-Reactive Protein 1.8 H Total Protein 6.9
--- NOTE | 2024-12-02 10:14 | P.DS_ITS ---
DS: Admitting Diagnosis Discharge Date 12/02/2024 Admitting Diagnosis FUNMILAYO DS: Discharge Diagnosis Discharge Diagnosis (1) Acute kidney injury: Code(s): N17.9 - Acute kidney failure, unspecified Status: Acute Assessment and Plan: Acute on chronic -BUN/cr/GFR 11/30 in ED: 29/2., will continue to trend in the AM. -HELD Gabapentin starting 11/30 (normally 600mg TID) may need to decrease this upon discharge -->Will be sent home with normal dose due to his CKD starting in Jun 2024 and GFR >30, he will f/u with neph and PCP -Has an outside neph referral via but has not established yet -Consulted neph for inpt/meds rec -Per CT: 8mm nonobstructing L renal stone, straining all urine - pt denies any intense pain, does report that he started to have lower back pain, across bilaterally, x1 week ago which is still present, but denies need for pain medication 12/02: -Cr/BUN: 1.82/23, downtrending -I spoke to Dr. Hall today, pt has been having kidney issues since Jun 2024 (also when cardiac cath was supposed to take place). Recs for pt to f/u with shoe sticks repairer referral that he has, Dr. Diamond. Ok per our neph to D/C. -Pt to also f/u with uro for his 8mm renal stone for future management. Denies any real lower back pain today. (2) Acute on chronic renal failure: Code(s): N17.9 - Acute kidney failure, unspecified; N18.9 - Chronic kidney disease, unspecified Status: Acute Assessment and Plan: See above. (3) Diabetes mellitus: Code(s): E11.9 - Type 2 diabetes mellitus without complications Status: Acute Assessment and Plan: Restarted home DM medications except injectable (Mounjaro) -Pt states that he has not been taking his DM meds because he recently changed PCPs (New: Dr. Jovon Odonnell, at ) and there has been a hold up with meds over the last several weeks because of this change -Pending A1C draw in the AM, will likely start to get accuchecks/sliding scale insulin once lab returns 12/02: A1c 6.8 today, will continue with home meds upon discharge today. Pt to f/u with his PCP to straighten out his medications. Pt aware of this and agreeable with plan. (4) Hypertension: Code(s): I10 - Essential (primary) hypertension Status: Chronic Assessment and Plan: Continue home meds BP measurements have been stable here inpt (5) Mental health disorder: Code(s): F99 - Mental disorder, not otherwise specified Status: Acute Assessment and Plan: Continue home meds (6) CAD (coronary artery disease): Code(s): I25.10 - Atherosclerotic heart disease of [place] coronary artery without angina pectoris Status: Acute Assessment and Plan: Restarted statin, HTN, and DM medications today Continues to deny any CP or SOB. Pt states that when he came into the ED he had just got done yelling at his son and thinks this is what made him have CP. ED EKG: SINUS RHYTHM, RIGHT BUNDLE BRANCH BLOCK, MINIMAL Q WAVES- HIGH LATERAL LEADS, BASELINE ARTIFACT- I, II, AVR -Pt reports that around x1 month ago that he was supposed to have an outpt cardiac cath with stent placement but went in and since his creatinine was elevated, he could not undergo the procedure. -->Pt was initially in the hospital at [facility] for CP and this is why he was referred for outpatient cardiac cath -Pt was given referrals to [facility] and nephrology for f/u after this but has yet to follow-up: Cards: Dr. Jones Islas Neph: Dr. Micheal Diamond 12/02: Pt continues to deny CP or SOB. Stressed the importance of his following up with his cards provider for his cardiac cath and stent placement, pt agreeable with plan. (7) Lung nodule: Code(s): R91.1 - Solitary pulmonary nodule Status: Acute Assessment and Plan: Per CT: Irregular groundglass opacity right lung apex, likely focal scarring. Additional 9 mm right upper lobe nodule with possible faint calcification, indeterminate, but possibly granuloma. Recommended follow-up CT scan in 3 months to reassess the above findings. Updated pt on this 12/01, reports that he has not ever been told of this before. Updated him on the plan for repeat chest imaging in x3 months via his PCP, pt agreeable. -12/02: Reminded him of this plan today, pt agreeable with plan. (8) Cholelithiasis: Code(s): K80.20 - Calculus of gallbladder without cholecystitis without obstruction Status: Acute Assessment and Plan: Per CT. Pt denies this dx before. -Pt continues to deny any pain -Liver enzymes WDL -Plans to f/u with PCP for future management if needed Plan Continue home meds, f/u with PCP, uro, neph, and cards upon discharge. DS: Summary Hospital Course Reason for hospitalization: FUNMILAYO Hospital Course: Per ED provider: Patient is a 59-year-old male who presents to the ER with bilateral lower back pain and feeling ?run down and sluggish. He reports he has not taken his medications to treat his diabetes for over a week, as he has had difficulty getting his medicine. Patient endorses chest pain and slight shortness of breath. He reports the symptoms have been going on for a while but he decided to come in for evaluation when he started experiencing chest pain. Patient also endorses lower abdominal pain. He reports he has a history of decreased kidney function, cardiac stent, diabetes, and high blood pressure. Patient denies any recent fevers, urinary symptoms, headaches, or one-sided numbness/tingling. *at time of examination pt endorses anxiety and is requesting medication to treat it. Labs Ordered: CBC, CRP, lactic acid, UA, lipase, CMP, ESR, COVID/flu/RSV swab Imaging Ordered: CT chest abdomen pelvis Medications Ordered: 1 L normal saline IV bolus, Ativan 0.5 mg IV (per patient's request due to his anxiety) Results: Patient's CBC indicates of white blood cell count of 13.1, hemoglobin of 12.4, hematocrit of 38.7. His CMP indicates a BUN of 29, creatinine of 2.27, GFR of 30, glucose of 174, calcium of 10.3. Patient's lipase is within normal limits. Patient's CT scan indicates cardiomegaly, hepatic steatosis, cholelithiasis, and nonobstructing 6 mm left lower pole renal stone, otherwise there are no acute abnormalities. Diagnosis: Acute kidney injury Patient Education/Shared MDM: Results of lab work and imaging shared with patient. He reports he receives most of his care, including his primary care, in [place]. Patient reports he was supposed to have his cardiac catheterization at [facility], but they canceled it due to his poor kidney function. He does not know what any of his creatinine levels have been in the past. It was advised patient be admitted to the hospital for further evaluation. Patient verbalized understanding and is in agreement with plan. 12/01: Pt seen today, he was resting in bed upon my arrival to his room. Pt denies CP and SOB today as well as weakness and abd pain. Pt only endorsing mild lower back pain, bilaterally. Denies CVA TTP. Updated on all of his testing and plan for stay. We talked extensively about his medical hx, see in H&P. Pt recently got a new PCP which has delayed him getting his routine DM medications, restarted here while inpt. Also of note, pt reports that x1 month ago that he was supposed to have an outpt cardiac cath with stent placement but went in and since his creatinine was elevated, he could not undergo the procedure. Pt was initially in the hospital at [facility] for CP and this is why he was referred for outpatient cardiac cath. Pt was given referrals to cards and nephrology for f/u after this but has yet to follow-up. 12/02: Pt sitting up in bed in no distress, continues to deny CP and SOB. No real sx other than very mild lower back pain. Updated him on the conversation I had with our shoe sticks repairer and the plan for f/u outpt with his cards and shoe sticks repairer referrals that he already has from as well as his PCP and uro for his renal stone. Evidently cardiac cath was supposed to take place in Jun 2024, FUNMILAYO/CKD status now chronic and does not need to stay inpatient any longer and it is appropriate for him to f/u outpatient. Pt agreeable with all follow-ups and will continue on medications upon discharge today. Status at Discharge Cognitive/behavioral status at discharge: stable Functional status at discharge: independent ambulation Overall status at discharge: patient is back to baseline Time Spent with Patient Time attestation: Total time spent providing and/or coordinating discharge services: Exam Const: General: comfortable and no acute distress HENMT: Face/Nose/Sinus: Normal nares present Mouth: Yes moist mucous membranes Eyes: General: appearance normal, both eyes and all related structures Sclera: sclerae normal Neck: Neck: supple and no JVD Carotids: no bruits Resp: Effort & Inspection: normal respiratory effort Auscultation: clear to auscultation bilaterally Cardio: Rate: regular rate Rhythm: regular rhythm GI: Inspection: non-distended GI Palp: Yes Soft to palpation and No Tenderness to palpation present (GI) Auscultation: normal bowel sounds Skin: General skin exam: normal color and no rashes or lesions noted Wounds: no wounds Neuro: General: gait normal Motor exam (neuro): Normal motor muscle tone present throughout Sensory Exam: normal sensation Other: Essential tremor throughout Extrem: General: normal to inspection Psych: Mental Status: mental status grossly normal Affect: normal affect DS: Data Data Completed and Pending Labs on day of discharge: Labs from last 24 hours 12/02/24 12/02/24 12/02/24 05:58 05:58 05:58 WBC RBC Hgb Hct MCV MCH MCHC RDW Plt Count MPV Immature Gran % (Auto) Neut % (Auto) Lymph % (Auto) [place] % (Auto) Eos % (Auto) Baso % (Auto) Lymph # (Auto) [place] # (Auto) Eos # (Auto) Baso # (Auto) Abs Immat Gran (auto) Absolute Neuts (auto) Absolute Nucleated RBC Nucleated RBC % ESR Sodium Potassium Chloride Carbon Dioxide Anion Gap BUN Creatinine Estim Creat Clear Calc Estimated GFR Glucose Hemoglobin A1c Calcium Phosphorus Total Bilirubin AST ALT Alkaline Phosphatase Total Creatine Kinase C-Reactive Protein Total Protein Albumin Lbrij-5-Lehssjgac Ztmkr-3-Tuxnqzqsh Xzhw-3-Gadqhkom Xblj-6-Wqlbnfdj Gamma Globulins PEP Interpretation TSH (Reflex) Urine Eosinophils Ur Random Creatinine U Random Total Protein Pending 18 Ur Random Sodium 125 Ur Random Urea 345 Urine Creatinine 64.7 65.9 Protein/Creatinin Ratio Pending Protein/Creat Ratio 2 0.26 H Urine Albumin Pending U Ciajh-6-Apmpcyst Pending U Yftgg-0-Mynfysqx Pending U Beta Globulin Pending U Gamma Globulin Pending Urine PEP Interpret Pending Cryoglobulin % Cryoglobulin Qualit ANI Screen ANCA Screen Anti-DNA Antibody Glomerular Base Memb Ab Complement C3 Complement C4 Tot Complement (CH50) [place]/Lambda Ratio Free [place] Light Chains Free Lambda Light Chain 12/02/24 12/02/24 12/02/24 05:58 05:39 05:39 WBC RBC Hgb Hct MCV MCH MCHC RDW Plt Count MPV Immature Gran % (Auto) Neut % (Auto) Lymph % (Auto) [place] % (Auto) Eos % (Auto) Baso % (Auto) Lymph # (Auto) [place] # (Auto) Eos # (Auto) Baso # (Auto) Abs Immat Gran (auto) Absolute Neuts (auto) Absolute Nucleated RBC Nucleated RBC % ESR Sodium Potassium Chloride Carbon Dioxide Anion Gap BUN Creatinine Estim Creat Clear Calc Estimated GFR Glucose Hemoglobin A1c Calcium Phosphorus Total Bilirubin AST ALT Alkaline Phosphatase Total Creatine Kinase C-Reactive Protein Total Protein Pending Albumin Pending 3.8 Bavcb-7-Pbxoasrev Pending Ogwxn-8-Mlvaqnjbl Pending Xqgr-5-Fxmsmyat Pending Soqd-9-Tmnqvhiw Pending Gamma Globulins Pending PEP Interpretation Pending TSH (Reflex) 0.634 Urine Eosinophils None seen Ur Random Creatinine Pending U Random Total Protein 17 Ur Random Sodium Ur Random Urea Urine Creatinine Protein/Creatinin Ratio Protein/Creat Ratio 2 Urine Albumin U Wquen-4-Zxnwodms U Qeiif-8-Qddmfogu U Beta Globulin U Gamma Globulin Urine PEP Interpret Cryoglobulin % Pending Cryoglobulin Qualit Pending ANI Screen Pending ANCA Screen Pending Anti-DNA Antibody Pending Glomerular Base Memb Ab Pending Complement C3 118 Complement C4 48.1 H Tot Complement (CH50) Pending [place]/Lambda Ratio Pending Free [place] Light Chains Pending Free Lambda Light Chain Pending 12/02/24 05:39 WBC 10.9 H RBC 4.00 L Hgb 11.6 L Hct 36.6 L MCV 91.5 MCH 29.0 MCHC 31.7 L RDW 13.9 Plt Count 217 MPV 10.2 Immature Gran % (Auto) 0.4 Neut % (Auto) 63.9 Lymph % (Auto) 25.1 [place] % (Auto) 7.2 Eos % (Auto) 2.9 Baso % (Auto) 0.5 Lymph # (Auto) 2.75 [place] # (Auto) 0.8 H Eos # (Auto) 0.3 Baso # (Auto) 0.1 Abs Immat Gran (auto) 0.04 H Absolute Neuts (auto) 7.0 H Absolute Nucleated RBC 0.000 Nucleated RBC % 0.0 ESR 19 Sodium 139 Potassium 4.0 Chloride 108 H Carbon Dioxide 23 Anion Gap 8 BUN 23 H Creatinine 1.82 H Estim Creat Clear Calc 45 Estimated GFR 39 L Glucose 122 H Hemoglobin A1c 6.8 H Calcium 9.3 Phosphorus 3.3 Total Bilirubin 0.4 AST 26 ALT 23 Alkaline Phosphatase 88 Total Creatine Kinase 90 C-Reactive Protein 1.8 H Total Protein 6.9 Albumin Awtpp-5-Dhaukcopc Boedn-0-Rppbfqdoo Qdjc-2-Fpfguzwc Buhy-9-Gdeldvsu Gamma Globulins PEP Interpretation TSH (Reflex) Urine Eosinophils Ur Random Creatinine U Random Total Protein Ur Random Sodium Ur Random Urea Urine Creatinine Protein/Creatinin Ratio Protein/Creat Ratio 2 Urine Albumin U Jnpxb-0-Urgrhgrg U Adlrc-4-Xlllmglk U Beta Globulin U Gamma Globulin Urine PEP Interpret Cryoglobulin % Cryoglobulin Qualit ANI Screen ANCA Screen Anti-DNA Antibody Glomerular Base Memb Ab Complement C3 Complement C4 Tot Complement (CH50) [place]/Lambda Ratio Free [place] Light Chains Free Lambda Light Chain Discharge Plan Discharge Attending physician on discharge: Gaby Aguilar Consulting providers: Vega Hall Discharging Clinician: Gaby Aguilar Anticipated Discharge Date/Time: 12/02/24 16:00 Patient Disposition: Home Activity: may shower Diet: heart healthy and diabetic Discharge Instructions: 1. Please follow-up with your new primary care provider (Dr. Jovon Odonnell) to make sure you figure out all of your home medications, including your diabetes medications, this is important! Also we talked about the CT result showing a nodule in your R upper lung and our radiologists recommend that you get a repeat CT scan of your chest in x3 months, your primary care provider will be able to order this for you. Make sure to follow-up with your doctor! 2. Also very important that you follow-up with Dr. Diamond (you have their contact info) the kidney specialist (shoe sticks repairer) so you can get your kidneys healthy again, especially when this is needed for your heart catheterization / stent placement. 3. Also very important that you follow-up with Dr. Jones Islas (you have their contact info) the meeting specialist (lunchroom aide) so we can get you back on track to getting your heart stent placed. 4. Finally, I have attached below the name (Dr. George) of a urologist (kidney stone specialist) that I want you to also follow-up with for your kidney stone. When you meet with them, you will come up with a plan for future management. 5. Continue taking your home medications as usual. 6. Remember that you were also diagnosed with gallstones while in the hospital, I am glad that these are not causing you any pain. You can also speak to your primary care provider about this and treatment for them down the road if they become an issues. Continue to check your blood pressure and blood sugar at home if applicable. Keep your scheduled appts with your primary care provider and any specialist that you may see. Return to the emergency department if you develop sudden shortness of breath, chest pain, a fever of greater than 101.5, or nausea, vomiting, abd pain, or diarrhea that does not go away. Thank you for choosing [facility] for your healthcare needs, it was a pleasure caring for you! Patient Instructions: Antibiotic Form, Cholecystitis (GEN), Acute Kidney Injury (GEN) Patient Language: Ch[place] Stand Alone Forms: General Discharge Information Follow-up/Referrals: Blas,MD Jovon [Non-Staff] - 2 Weeks Guillermo George MD [Physician] - 4 Weeks Discharge Medications: Continued atorvastatin 20 mg tablet 20 mg PO QAM amlodipine 5 mg tablet 5 mg PO QAM lisinopril 20 mg Tablet 40 mg PO QAM Qty: 40 0RF venlafaxine [Effexor XR] 150 mg Capsule,Extended Release 24hr 150 mg PO DAILY Qty: 60 0RF alprazolam 1 mg tablet 1 mg PO BID aripiprazole 20 mg tablet 20 mg PO QHS dapagliflozin propanediol [Farxiga] 10 mg tablet 10 mg PO DAILY gabapentin 600 mg tablet 600 mg PO TID Januvia 100 mg tablet 100 mg PO DAILY Mounjaro 2.5 mg/0.5 mL pen injector 2.5 mg subcut WEEKLY Rx Instructions: for 4 weeks pioglitazone 15 mg tablet 15 mg PO DAILY ropinirole 1 mg tablet 1 mg PO QHS Date of admission: 12/01/24 02:36 Primary Care Provider: LoboMicheal Admitting Provider: Ivana Trinidad Attending physician on admission: Gaby Aguilar Condition: Stable Quality VTE Prophylaxis VTE prophylaxis: mechanical ordered Hospitalist MIPS Heart Failure (Exclusion) Patient has history of Heart Transplant or Left Ventricular Assistive Device?: No IF YES, STOP HERE Heart Failure (Qualifier) Patient has current or prior documentation of LVEF less than or equal to 40%, or mod/servere depressed LVSF?: No IF NO, STOP HERE
[2024-12-02 12:00] VITALS: BP 146/91; PULSE 88; RESP 20; O2SAT 97
[2024-12-02 15:37] VITALS: BP 118/66; PULSE 80; RESP 18; TEMP 35.6; O2SAT 95
[2024-12-03 01:54] LABS: Creatinine, Random Urine 64 mg/dL (20-320); Total Protein/Creatinine Ratio 250 mg/g creat (25-148)
[2024-12-04 04:08] LABS: Protein, Total 6.2 g/dL (6.1-8.1)
[2024-12-05 11:44] LABS: Kappa\\Lambda Light Chains 1.96 (0.26-1.65); Lambda Light Chain 28.1 mg/L (5.7-26.3)
[2024-12-05 13:09] LABS: Complement Total CH50 55 U/mL (31-60)
[2024-12-05 17:44] LABS: Anti Glomerular Basement Memb <1.0 AI
[2024-12-05 19:28] LABS: Abnormal Protein Band 1 0.1 g/dL (NONE DETECTED); Albumin 3.4 g/dL (3.8-4.8); Alpha 1 Globulin 0.3 g/dL (0.2-0.3); Alpha 2 Globulin 0.8 g/dL (0.5-0.9); Beta 1 Globulin 0.5 g/dL (0.4-0.6); Gamma Globulin 0.7 g/dL (0.8-1.7)
[2024-12-06 15:33] LABS: ANCA Screen NEGATIVE (NEGATIVE)
== END 2024-12-02 16:05 | disposition home or self-care (01) ==
LOC: ANHED 12-01 02:36 → ANH3MED 12-01 02:50
PROVIDERS: Emergency Medicine; Internal Medicine Nephrology; Admitting Provider Internal Medicine; Emergency Provider Registered Nurse; PCP Specialist
DX: N17.9 Acute kidney failure, unspecified (principal); E11.22 Type 2 diabetes mellitus with diabetic chronic kidney disease; I12.9 Hypertensive chronic kidney disease with stage 1 through stage 4 chronic kidney disease, or unspecified chronic kidney disease; N18.9 Chronic kidney disease, unspecified; I25.10 Atherosclerotic heart disease of native coronary artery without angina pectoris; R91.1 Solitary pulmonary nodule; K80.20 Calculus of gallbladder without cholecystitis without obstruction; E78.5 Hyperlipidemia, unspecified; F41.9 Anxiety disorder, unspecified; F32.A Depression, unspecified; Z20.822 Contact with and (suspected) exposure to COVID-19; Z87.891 Personal history of nicotine dependence; Z79.84 Long term (current) use of oral hypoglycemic drugs; Z79.85 Long-term (current) use of injectable non-insulin antidiabetic drugs; Z79.899 Other long term (current) drug therapy
CPT/HCPCS: 36415; 71046; 71250; 74176; 80053; 81001; 81050; 82550; 82570; 82595; 82948; 83036; 83520; 83605; 83690; 83883; 84100; 84155; 84156; 84165; 84166; 84300; 84443; 84540; 85025; 85652; 85999; 86036; 86038; 86039; 86140; 86160; 86162; 86225; 87637; 93005; 96361; 96374; 96375; 99285; A9270; G0378; G0379; J2060; J7030